=== PATIENT | female | born 1995 | race African-American/Black ===

== ENCOUNTER 2022-12-11 11:37 | Emergency (ER) | payer OTHER, SELFPAY ==
[2022-12-11] VITALS (7 sets, daily range): BP systolic 107–123; BP diastolic 62–84; PULSE 87–115; RESP 18; TEMP 36.4; O2SAT 98–100
--- NOTE | ~2022-12-11 | CT_ITS ---
EXAMINATION: CTA chest PE protocol DATE: 12/11/2022 13:54 MOBILE GAME ENGINEER INDICATION: Syncope. Elevated d-dimer. TECHNIQUE: Computed tomographic angiography (CTA) of the chest was performed with 100 mL Omnipaque-35 0 intravenous contrast. The dose-length product was 230.25 mGy-cm. Maximum intensity projection 3D-re constructions of the aorta and other arteries were constructed by the technologist on a separate work station. COMPARISON: None. FINDINGS: Study is technically adequate without evidence for pulmonary embolism. No significant pleur al or pericardial effusion. The upper abdomen is unremarkable. Heart size is normal. No thoracic lymp hadenopathy. No focal airspace consolidation. No endobronchial lesions. No pulmonary nodules. No pneu mothorax. No acute osseous abnormality. IMPRESSION: 1. No acute cardiopulmonary disease. No evidence for pulmonary embolism. Reviewed, dictated and finalized at location A. LE GAME ENGINEER
--- NOTE | 2022-12-11 12:08 | ECG_ITS ---
Measurements Intervals [place] Rate: 97 P: 72 MT: 171 QRS: 60 QRSD: 68 T: 52 QT: 316 QTc: 401 Interpretive Statements SINUS RHYTHM EARLY PRECORDIAL R/S TRANSITION BASELINE ARTIFACT- I, II, III, AVR, AVL BORDERLINE ECG NO PREVIOUS ECG AVAILABLE FOR COMPARISON Electronically Signed On 12-11-2022 13:22:31 THERMOFORMING MACHINE OPERATOR by Dayday Pritchett D.O.
--- NOTE | 2022-12-11 12:09 | ED.GENADULT ---
HPI - General Adult General Chief complaint: Syncope Stated complaint: near syncopal 3 months preg Time Seen by Provider: 12/11/22 11:42 History of Present Illness HPI narrative: 26-year-old female who is approximately 9 weeks presents to the emergency department for evaluation after having a syncopal episode. Patient states when she woke up this morning she was feeling fine. Patient states just prior to arrival she was making some waffles and sim and felt very flushed and had some onset of generalized weakness. Patient states she sat down at the table and rested her head on the table. Patient states that she felt warm and flushed. Patient was telling by members to open the door because she felt so warm. Patient states that EMS arrived quickly when EMS arrived that she did feel improved. Patient states that she has no chest pain or shortness of breath. Patient denies any nausea vomiting or diarrhea. Patient states she has been having some vaginal discharge but was started on an antifungal yesterday for yeast infection. Patient states that after the episode she did have some lower abdominal cramping. Patient does report a prior history of a cardiac murmur but denies any history of cardiac arrhythmia. Patient denies any other significant past medical history Related Data Allergies Allergy/AdvReac Type Severity Reaction Status Date / Time No Known Allergies Allergy Verified 12/11/22 11:45 Review of Systems Review of Systems: CONSTITUTIONAL: Denies fever, chills, or sweats. EYES: Denies visual changes, redness, or discharge. ENT: Denies rhinorrhea, congestion, sore throat, or otalgia. CARDIOVASCULAR: Denies chest pain, palpitations, or edema. RESPIRATORY: Denies cough or dyspnea. GASTROINTESTINAL: Denies abdominal pain, nausea, vomiting, or diarrhea. GENITOURINARY: Denies dysuria or hematuria. SKIN: Denies rash or itching. MUSCULOSKELETAL: Denies back pain, joint pain, or myalgia. NEUROLOGIC: See HPI Exam Narrative: APPEARANCE: Well appearing, no pain, no distress, well-nourished. HEAD: normocephalic, atraumatic. EYES: PERRLA/EOMI, conjunctivae clear. NOSE: Normal no drainage NECK: Supple. No adenopathy, no masses. RESPIRATORY: Airway patent, respirations nonlabored. Clear to auscultation bilaterally, no rales, rhonchi, wheezing. CARDIOVASCULAR: Regular rate and rhythm without murmurs rubs or gallops. ABDOMINAL: Soft, nontender, nondistended, normal bowel sounds. No suprapubic tenderness to palpation. MUSCULOSKELETAL: Moves all extremities. Strength/ROM intact, No edema, No calf tenderness. NEURO: Alert. Cranial nerves II through XII intact. Grossly intact SKIN: Warm, dry. Normal Color Course Course Emergency Course: Patient reports she has already had an outpatient ultrasound with her OB that she follows up with at [place]. Cardiac arrhythmia work-up including TSH mag EKG and baseline labs were ordered. Patient is being treated with 1 L normal saline. Dimer was ordered due to concern of pulm embolism as the underlying cause for her syncope. Patient's D-dimer was elevated. Risks and benefits of the CT scan were discussed with the patient. Patient was comfortable proceeding with the CT scan. Patient reports that her abdominal cramping did resolve with rehydration. Patient's orthostatic vital signs also improved with rehydration. Patient was negative for influenza COVID and RSV. Patient's UA was concerning for a urinary tract infection and patient was treated with IV Rocephin and discharged home with Keflex. Patient was updated on the results of the work-up and reports of close follow-up with her INSTRUCTOR KNITTING differential diagnosis for the patient's syncope did include but was not limited to orthostatic hypotension, dehydration, vasovagal syncope, cardiac arrhythmia, pulm embolism. Vital Signs Vital signs: Vital Signs Temperature 97.6 F 12/11/22 11:38 Pulse Rate 103 H 12/11/22 11:38 Respiratory Rate 18 12/11
[2022-12-11] MEDS: SODIUM CHLORIDE 0.9% IV 1,000 ML 999 ML IV CONT ×2 (12:16→15:24)
[2022-12-11 12:24] LABS: Basophils Percent Auto 0.4 % (0.2-1.2); Eosinophils Absolute Auto 0.2 K/mm3 (0-0.3); Eosinophils Percent Auto 2.9 % (0-4.4); Hematocrit 36.3 % (37.0-47.0); Hemoglobin 12.1 g/dL (12.0-15.0); Immature Granulocyte Absolute 0.01 K/mm3 (0.00-0.031); Immature Granulocyte Percent A 0.1 % (0-0.5); Lymphocytes Percent Auto 23.2 % (18.3-44.2); Mean Corpuscular HGB Conc 33.3 g/dl (32-36); Mean Corpuscular Hemoglobin 23.6 pg (26-34); Mean Corpuscular Volume 70.9 fl (80-100); Mean Platelet Volume 10.2 fl (7.4-10.4); Monocytes Absolute Auto 0.5 K/mm3 (0.1-0.6); Monocytes Percent Auto 6.3 % (2.6-8.5); Neutrophils Absolute Auto 5.5 K/mm3 (1.3-6.7); Neutrophils Percent Auto 67.1 % (45.5-73.1); Platelet Count Result 336 k/mm3 (150-375); Red Blood Count 5.12 M/mm3 (4.2-5.4); Red Cell Distribution Width 13.9 % (11.5-14.5); White Blood Count 8.2 K/mm3 (4.5-10.0)
[2022-12-11 12:38] LABS: Alanine Aminotransferase 14 U/L (6-35); Albumin Level 4.7 g/dL (3.5-5.1); Alkaline Phosphatase 50 U/L (38-126); Anion Gap 8 mmol/L (8-16); Aspartate Amino Transferase 23 U/L (14-36); Bilirubin,Total 1.2 mg/dL (0.2-1.3); Blood Urea Nitrogen 8 mg/dL (7-17); Calcium 9.7 mg/dL (8.4-10.2); Carbon Dioxide 28 mmol/L (22-30); Chloride 102 mmol/L (98-107); Estimated CRCL calculation 116 ml/min; Estimated Glomerular Filt Rate > 60; Glucose 84 mg/dL (65-110); Magnesium 2.1 mg/dL (1.6-2.3); Potassium 3.7 mmol/L (3.4-5.0); Sodium 138 mmol/L (137-145)
[2022-12-11 12:41] LABS: Platelet Estimate Adequate (Adequate)
[2022-12-11 12:42] LABS: Hypochromasia 1+ (NORMAL); Schistocytes None Seen (NORMAL); Target Cells 1+ (NORMAL)
[2022-12-11 12:50] LABS: INR 1.1; Prothrombin Time 13.6 Seconds (11.1-14.7)
[2022-12-11 12:51] LABS: Partial Thromboplastin Time 24.7 SECONDS (22.3-36.8)
[2022-12-11 13:02] LABS: Appearance Urine Cloudy (Clear); Bilirubin Urine Negative (Negative); Blood Urine Negative (Negative); Color Urine Yellow (Yellow); Glucose Urine UA Negative (Negative); Ketones Urine Trace mg/dL (Negative); Leukocyte Esterase Ur Negative LEU/UL (Negative); Nitrate Urine Negative (Negative); Protein Urine 1+ mg/dL (Negative); Specific Grav Ur >= 1.030 (1.001-1.035); pH Urine 5.5 (5.0-9.0)
[2022-12-11 13:05] LABS: Bacteria Urine 1+ /hpf; Mucus Urine Heavy /lpf; Squamous Epithelial Cell Urine Moderate /hpf (Few)
[2022-12-11 13:07] LABS: Add Urine Microscopic? YES
[2022-12-11 14:34] LABS: Influenza A QL RT-PCR Negative (Negative); Influenza B QL RT-PCR Negative (Negative); RSV RNA, RT-PCR Negative (Negative); SARS-CoV-2 RNA PCR Negative
== END 2022-12-11 17:25 | disposition home or self-care (01) ==
PROVIDERS: Emergency Provider Emergency Medicine
DX: O23.41 Unspecified infection of urinary tract in pregnancy, first trimester (principal); O99.411 Diseases of the circulatory system complicating pregnancy, first trimester; I95.1 Orthostatic hypotension; Z20.822 Contact with and (suspected) exposure to COVID-19; R94.31 Abnormal electrocardiogram [ECG] [EKG]; Z3A.09 9 weeks gestation of pregnancy
CPT/HCPCS: 36415; 71275; 80053; 81001; 83735; 85025; 85380; 85610; 85730; 87086; 87637; 93005; 96361; 96365; 99284; J0696; J7030; Q9967

== ENCOUNTER 2025-05-07 08:22 | Emergency (ER) | payer OTHER, SELFPAY ==
[2025-05-07] VITALS (9 sets, daily range): BP systolic 104–139; BP diastolic 64–93; PULSE 62–93; RESP 16–23; TEMP 36.7; O2SAT 100
--- NOTE | ~2025-05-07 | XR_ITS ---
EXAMINATION: XR chest 2V DATE: 05/07/2025 09:58 INDICATION: Central chest pain. Nausea. TECHNIQUE: frontal and lateral views of the chest were obtained. COMPARISON: Chest CT dated 11/2822 FINDINGS: The lungs are clear with no focal airspace opacities, pulmonary edema, pleural effusion or pneumothor ax. The cardiomediastinal silhouette is normal. Mild thoracolumbar dextrocurvature. IMPRESSION: 1. No acute cardiopulmonary disease. Reviewed, dictated and finalized at location A.
--- NOTE | 2025-05-07 08:37 | ECG_ITS ---
Test Date: 2025-05-07 08:42:21 Measurements Intervals [place] Rate: 72 P: 48 MO: 254 QRS: 74 QRSD: 76 T: 68 QT: 374 QTc: 412 Interpretive Statements SINUS RHYTHM WITH FIRST DEGREE AV BLOCK WITH OCCASIONAL SUPRAVENTRICULAR PREMATURE COMPLEXES BORDERLINE T WAVE ABNORMALITY- HIGH LATERAL LEADS BASELINE ARTIFACT- I, II, III, AVR, AVL, V2 BORDERLINE ECG No previous ECG available for comparison Electronically Signed On 05-07-2025 08:49:04 CDT by Dayday Pritchett D.O.
[2025-05-07 08:45] LABS: BEDSIDEPREGUCG Negative (Negative)
[2025-05-07] MEDS: ONDANSETRON INJ 4 MG/2 ML VIAL IV PUSH (08:55)
[2025-05-07] MEDS: SODIUM CHLORIDE 0.9% IV 1,000 ML 999 ML IV CONT (08:55)
[2025-05-07] MEDS: FAMOTIDINE 20 MG/2 ML VIAL IV PUSH (08:55)
[2025-05-07 09:01] LABS: Basophils Percent Auto 0.2 % (0.2-1.2); Eosinophils Percent Auto 0.1 % (0-4.4); Hematocrit 34.7 % (37.0-47.0); Hemoglobin 11.9 g/dL (12.0-15.0); Immature Granulocyte Absolute 0.05 K/mm3 (0.00-0.031); Immature Granulocyte Percent A 0.5 % (0-0.5); Lymphocytes Absolute Auto 1.96 K/mm3 (0.9-3.2); Mean Corpuscular HGB Conc 34.3 g/dl (32-36); Mean Corpuscular Hemoglobin 23.8 pg (26-34); Mean Corpuscular Volume 69.3 fl (80-100); Mean Platelet Volume 10.4 fl (7.4-10.4); Monocytes Absolute Auto 0.6 K/mm3 (0.1-0.6); Neutrophils Absolute Auto 8.3 K/mm3 (1.3-6.7); Neutrophils Percent Auto 76.2 % (45.5-73.1); Platelet Count Result 242 k/mm3 (150-375); Red Blood Count 5.01 M/mm3 (4.2-5.4); Red Cell Distribution Width 13.8 % (11.5-14.5); White Blood Count 10.9 K/mm3 (4.5-10.0)
[2025-05-07 09:11] LABS: Alanine Aminotransferase 20 U/L (6-35); Albumin Level 4.4 g/dL (3.5-5.1); Alkaline Phosphatase 55 U/L (38-126); Anion Gap 11 mmol/L (4-12); Aspartate Amino Transferase 26 U/L (14-36); Bilirubin,Total 2.7 mg/dL (0.2-1.3); Blood Urea Nitrogen 9 mg/dL (7-17); Calcium 9.6 mg/dL (8.4-10.2); Carbon Dioxide 23 mmol/L (22-30); Chloride 104 mmol/L (98-107); Estimated CRCL calculation 84 ml/min; Estimated Glomerular Filt Rate > 60; Glucose 95 mg/dL (65-110); Lipase 99 U/L (23-300); Potassium 3.1 mmol/L (3.4-5.0); Sodium 138 mmol/L (137-145); Total Protein 7.5 g/dL (6.3-8.2)
[2025-05-07 09:23] LABS: INR 1.1; Prothrombin Time 13.9 Seconds (11.1-14.7)
[2025-05-07 09:24] LABS: Partial Thromboplastin Time 22.6 Seconds (22.3-36.8)
[2025-05-07 09:25] LABS: Target Cells 1+
[2025-05-07 09:26] LABS: Hypochromasia 1+; Platelet Estimate Adequate (Adequate); Schistocytes None Seen
[2025-05-07 09:27] LABS: Atypical Lymphocytes Present
[2025-05-07] MEDS: BELLADONNA ALK/PHENOB ELIX 10 ML, MAG HYDROX/ALUMINUM HYD/SIMETH 30 ML, LIDOCAINE 2% VI... PO (11:17)
--- NOTE | 2025-05-07 11:41 | ED_ITS ---
HPI - Abdominal Pain General Chief Complaint: Abdominal Pain Stated Complaint: ovarian cyst pain Time Seen by Provider: 05/07/25 08:33 History of Present Illness HPI narrative: Patient is a 29-year-old female who presents ER with nausea vomiting abdominal pain. Pain is in her epigastrium. If she eats or drinks she vomits. Recently started on Toradol for abdominal pain. She has had chronic issues since 2019 and sees GI. She was seen at 2 separate hospitals over last week. She is diagnosed with an ulcer in his taking medication for H pylori. She has also had diagnosed with an ovarian cyst. She then developed a yeast infection from the antibiotic she had been on him receive some treatment for that as well. No recurrent fevers or chills. No urinary symptoms. Related Data Allergies Allergy/AdvReac Type Severity Reaction Status Date / Time No Known Allergies Allergy Verified 05/07/25 08:38 Review of Systems 2 Review of Systems: All systems reviewed & are unremarkable except as noted in HPI and below Constitutional: Constitutional: Reports no additional constitutional complaints ENT: Reports system reviewed and no additional complaints, except as documented Cardiovascular: Cardiovascular: Reports no additional cardiovascular complaints Respiratory: Respiratory: Reports no additional respiratory complaints PMFSH Past Medical History Medical History (Updated 05/07/25 @ 11:53 by Ashwin Berrios MD) Healthy female adult Exam 2 Narrative: GENERAL: Uncomfortable-appearing, well-nourished, and in no acute distress. HEAD: Normocephalic, atraumatic. ENT: Mucous membranes moist. NECK: Supple. CHEST: Clear to auscultation. No respiratory distress. HEART: Regular rate and rhythm. Normal peripheral pulses. ABDOMEN: Soft, nontender, nondistended. EXTREMITIES: Normal range of motion. No edema. SKIN: Warm, dry, no rash. NEURO: Alert and oriented x3. PSYCH: Normal mood and affect. Course Course Emergency Course: Patient has had vomiting. Suspect esophagitis and gastritis. She has had a lot of anti-inflammatories prescribed to her that I think care acting as a gastric irritants pain could potentially be causing an ulcer. I have instructed her to discontinue these medications. She will be started on Protonix 40 mg twice a day. Also provide with antiemetics for home. Vital Signs Vital signs: Vital Signs Temperature 98.0 F 05/07/25 08:24 Pulse Rate 65 05/07/25 08:24 Respiratory Rate 16 05/07/25 08:24 Blood Pressure 109/93 H 05/07/25 08:24 Pulse Oximetry 100 05/07/25 08:24 Oxygen Delivery Room Air 05/07/25 08:24 Temperature 98.0 F 05/07/25 08:24 Pulse Rate 72 05/07/25 10:30 Respiratory Rate 21 H 05/07/25 10:30 Blood Pressure 104/67 05/07/25 10:30 Pulse Oximetry 100 05/07/25 10:30 Oxygen Delivery Room Air 05/07/25 08:24 MDM - Abdominal Pain Lab Data 05/07/25 08:55 05/07/25 08:55 Labs: Lab Results 05/07/25 05/07/25 05/07/25 Range/Units 08:42 08:55 08:56 WBC 10.9 H (4.5-10.0) K/mm3 RBC 5.01 (4.2-5.4) M/mm3 Hgb 11.9 L (12.0-15.0) g/dL Hct 34.7 L (37.0-47.0) % MCV 69.3 L (80-100) fl MCH 23.8 L (26-34) pg MCHC 34.3 (32-36) g/dl RDW 13.8 (11.5-14.5) % Plt Count 242 (150-375) k/mm3 MPV 10.4 (7.4-10.4) fl Immature Gran % (Auto) 0.5 (0-0.5) % Neut % (Auto) 76.2 H (45.5-73.1) % Lymph % (Auto) 18.0 L (18.3-44.2) % [place] % (Auto) 5.0 (2.6-8.5) % Eos % (Auto) 0.1 (0-4.4) % Baso % (Auto) 0.2 (0.2-1.2) % Lymph # (Auto) 1.96 (0.9-3.2) K/mm3 [place] # (Auto) 0.6 (0.1-0.6) K/mm3 Eos # (Auto) 0.0 (0-0.3) K/mm3 Baso # (Auto) 0.0 (0.0-0.1) K/mm3 Abs Immat Gran (auto) 0.05 H (0.00-0.031) K/mm3 Absolute Neuts (auto) 8.3 H (1.3-6.7) K/mm3 Absolute Nucleated RBC 0.000 (0.0-0.012) K/mm3 Band Neutrophils % Not Reportable Nucleated RBC % 0.0 (0.0-0.2) % Atypical Lymphocytes Present Platelet Estimate Adequate (Adequate) Hypochromasia 1+ Target Cells 1+ Schistocytes None seen PT 13.9 (11.1-14.7) Seconds INR 1.1 APTT 22.6 (22.3-36.8) Seconds Sodium 138 (137-145) mmol/L Potassium 3.1 L (3.4-5.0) mmol/L Chloride 104 (98-107) mmol/L Carbon Dioxide 23 (22-30) mmol/L Anion Gap 11 (4-12) mmol/L BUN 9 (7-17) mg/dL Creatinine 0.70 (0.7-1.0) mg/dL Estim Creat Clear Calc 84 ml/min Estimated GFR > 60 (59 - ) Glucose 95 (65-110) mg/dL Calcium 9.6 (8.4-10.2) mg/dL Total Bilirubin 2.7 H (0.2-1.3) mg/dL AST 26 (14-36) U/L ALT 20 (6-35) U/L Alkaline Phosphatase 55 (38-126) U/L Total Protein 7.5 (6.3-8.2) g/dL Albumin 4.4 (3.5-5.1) g/dL Lipase 99 (23-300) U/L POC Urine HCG, Qual Negative (Negative) Imaging Data Radiologist's impression: ITS Impressions Chest X-Ray 05/07/25 09:59 IMPRESSION: 1. No acute cardiopulmonary disease. Discharge Plan Discharge Clinical Impression: Esophagitis with gastritis, Hypokalemia, Nausea & vomiting Patient Disposition: Home Condition: Stable Instructions: Diet for Stomach Ulcers and Gastritis (ED), Acute Nausea and Vomiting (ED), Esophagitis (ED) Additional Instructions: Return to the emergency department if you develop severe abdominal pain, severe nausea and vomiting to the point where you are unable to keep down fluids, if you develop chest pain or difficulty breathing, blood in your stool, dizziness or fainting, or if you develop any other new or concerning symptoms as these could be signs of more serious medical illness. Try to stay well hydrated. Follow-up with your primary care doctor as well as her GI doctor. Patient Language: Bulgarian Prescriptions: New pantoprazole 40 mg tablet,delayed release (DR/EC) 40 mg PO BID Qty: 28 0RF ondansetron 4 mg tablet,disintegrating 4 mg PO Q6H PRN (Reason: nausea and vomiting) Qty: 10 0RF potassium chloride [Klor-Con M20] 20 mEq tablet,ER particles/crystals 20 meq PO BID Qty: 10 0RF No Action cephalexin 500 mg capsule 500 mg PO Q12H 7 Days Qty: 14 0RF Follow-up/Referrals: PHYSICIAN NOT ON STAFF,NONSTAFF [Primary Care Provider] - 1 Week
== END 2025-05-07 12:08 | disposition home or self-care (01) ==
PROVIDERS: Emergency Provider Emergency Medicine
DX: K29.70 Gastritis, unspecified, without bleeding (principal); K20.90 Esophagitis, unspecified without bleeding; E87.6 Hypokalemia; R11.2 Nausea with vomiting, unspecified
CPT/HCPCS: 36415; 71046; 80053; 81025; 83690; 85025; 85610; 85730; 93005; 96361; 96374; 96375; 99284; A9270; J2405; J7030

== ENCOUNTER 2025-05-08 08:56 | Emergency (ER) | payer OTHER, SELFPAY ==
--- NOTE | ~2025-05-08 | CT_ITS ---
CT abdomen pelvis w con Ordering provider: Emy Summers PA-C History: 29 years Female with . epigastric abd pain/generalized abd pain radiates to midback . Comparison: None. Technique: CT abdomen and pelvis with IV and without oral contrast. Automated exposure control and it erative reconstruction technique were employed. The dose-length product was 190.39 mGy-cm. 100 mL Omn ipaque 350 was given IV. Findings: VISUALIZED LOWER CHEST: Normal. UPPER ABDOMINAL ORGANS: Liver: Normal. Gallbladder: Normal. Spleen: Normal. Stomach/duodenum: Normal. Pancreas: Slightly prominent distal body of the pancreas with no fat stranding. Evaluation for pancre atitis advised. Adrenals: Normal. Kidneys: Normal. PELVIC ORGANS: The bladder is underfilled. Uterus: Retroverted. Right ovarian cyst measuring 2.2 cm. Slightly congested and prominent veins seen around the uterus which may indicate pelvic congestion sy ndrome. BOWEL AND MESENTERY: Colon: No evidence of diverticulitis.. Normal appendix. Small Bowel: Normal. No obstruction. Peritoneum/mesentery: No free air or free fluid. No mesenteric lymphadenopathy. RETROPERITONEUM: Normal aorta. No retroperitoneal lymphadenopathy. MUSCULOSKELETAL: Superficial soft tissues: The superficial soft tissues are normal. Bones: Normal spine. IMPRESSION: 1. No evidence of appendicitis, diverticulitis or intestinal obstruction. 2. Focal enlargement in the distal body of the pancreas. Evaluation for pancreatitis advised. 3. Prominent veins in both sides of the pelvis which may indicate pelvic congestion syndrome. 4. Right ovarian cyst. Reviewed, dictated and finalized at location A. IMPRESSION: 1. No evidence of appendicitis, diverticulitis or intestinal obstruction. 2. Focal enlargement in the distal body of the pancreas. Evaluation for pancre atitis advised. 3. Prominent veins in both sides of the pelvis which may indicate pelvic conge stion syndrome. 4. Right ovarian cyst.
[2025-05-08 09:02] VITALS: BP 128/94; PULSE 66; RESP 14; TEMP 36.8; O2SAT 100
[2025-05-08 09:05] LABS: Basophils Percent Auto 0.3 % (0.2-1.2); Eosinophils Absolute Auto 0.1 K/mm3 (0-0.3); Eosinophils Percent Auto 0.8 % (0-4.4); Hemoglobin 10.8 g/dL (12.0-15.0); Immature Granulocyte Absolute 0.04 K/mm3 (0.00-0.031); Immature Granulocyte Percent A 0.4 % (0-0.5); Lymphocytes Absolute Auto 2.17 K/mm3 (0.9-3.2); Lymphocytes Percent Auto 22.5 % (18.3-44.2); Mean Corpuscular HGB Conc 33.8 g/dl (32-36); Mean Corpuscular Hemoglobin 23.8 pg (26-34); Mean Corpuscular Volume 70.6 fl (80-100); Mean Platelet Volume 10.3 fl (7.4-10.4); Monocytes Absolute Auto 0.7 K/mm3 (0.1-0.6); Monocytes Percent Auto 6.8 % (2.6-8.5); Neutrophils Absolute Auto 6.7 K/mm3 (1.3-6.7); Neutrophils Percent Auto 69.2 % (45.5-73.1); Platelet Count Result 199 k/mm3 (150-375); Red Blood Count 4.53 M/mm3 (4.2-5.4); Red Cell Distribution Width 13.7 % (11.5-14.5); White Blood Count 9.6 K/mm3 (4.5-10.0)
[2025-05-08 09:18] LABS: Alanine Aminotransferase 16 U/L (6-35); Albumin Level 3.8 g/dL (3.5-5.1); Alkaline Phosphatase 47 U/L (38-126); Anion Gap 8 mmol/L (4-12); Aspartate Amino Transferase 20 U/L (14-36); Blood Urea Nitrogen 8 mg/dL (7-17); Calcium 8.9 mg/dL (8.4-10.2); Carbon Dioxide 26 mmol/L (22-30); Chloride 103 mmol/L (98-107); Estimated CRCL calculation 84 ml/min; Estimated Glomerular Filt Rate > 60; Glucose 88 mg/dL (65-110); Lipase 43 U/L (23-300); Potassium 2.8 mmol/L (3.4-5.0); Sodium 137 mmol/L (137-145); Total Protein 6.5 g/dL (6.3-8.2)
[2025-05-08 09:24] LABS: Hypochromasia 2+; Platelet Estimate Adequate (Adequate)
[2025-05-08 09:25] LABS: Anisocytosis 1+; Schistocytes None Seen; Target Cells 2+
[2025-05-08 09:28] LABS: BEDSIDEPREGUCG Negative (Negative)
--- NOTE | 2025-05-08 09:30 | ED.ABDPAIN ---
HPI - Abdominal Pain General Chief Complaint: Abdominal Pain Stated Complaint: abd pain/back pain Time Seen by Provider: 05/08/25 09:07 History of Present Illness HPI narrative: This is a 29 year old female that presents to the ER for abdominal pain. Reports she coughed this morning and had a sharp epigastric pain, radiating to her back. Reports nausea and vomiting. She was seen for similar yesterday. Reports she was diagnosed with H. Pylori in January of this year. She did not fully finish her treatment. She started having discomfort again so decided to re-start her antibiotics. Related Data Allergies Allergy/AdvReac Type Severity Reaction Status Date / Time No Known Allergies Allergy Verified 05/08/25 08:57 Review of Systems Review of Systems: All systems reviewed & are unremarkable except as noted in HPI and below PMFSH Past Medical History Medical History (Updated 05/08/25 @ 13:57 by Emy Summers PA-C) Healthy female adult Social History Social History (Updated 05/08/25 @ 09:35 by Emy Summers PA-C) Smoking status: Never smoker Substance use: current Exam Narrative: GENERAL: Well-appearing, well-nourished, and in no acute distress. HEAD: Normocephalic, atraumatic. EYES: EOMI. CHEST: Clear to auscultation. No respiratory distress. No wheezes rales or rhonchi HEART: Regular rate and rhythm. No murmur heard. Normal peripheral pulses. ABDOMEN: Soft, nondistended, normal active bowel sounds. Tender to palpation in the epigastrium, without guarding EXTREMITIES: Normal range of motion. No edema. SKIN: Warm, dry, no rash. NEURO: No focal deficits. Alert and oriented x3. PSYCH: Normal mood and affect Course Course Emergency Course: Patient updated on her workup and agrees with plan of care Vital Signs Vital signs: Vital Signs Temperature 98.2 F 05/08/25 09:02 Pulse Rate 66 05/08/25 09:02 Respiratory Rate 14 05/08/25 09:02 Blood Pressure 128/94 H 05/08/25 09:02 Pulse Oximetry 100 05/08/25 09:02 Oxygen Delivery Room Air 05/08/25 09:02 Temperature 98.2 F 05/08/25 09:02 Pulse Rate 66 05/08/25 09:02 Respiratory Rate 14 05/08/25 09:02 Blood Pressure 128/94 H 05/08/25 09:02 Pulse Oximetry 100 05/08/25 09:02 Oxygen Delivery Room Air 05/08/25 09:02 MDM - Abdominal Pain MDM Narrative Medical decision making narrative: Patient presents the emergency department for epigastric abdominal discomfort, nausea and vomiting. She is afebrile and nontoxic appearing. Her vitals are stable. Cbc without leukocytosis. Shows microcytic anemia hemoglobin of 10.8. Metabolic panel with hypokalemia, this was replaced. Recheck is normal. Urine without evidence of infection. CT abdomen and pelvis shows focal enlargement of the pancreas, patient's lipase is normal. Pelvic congestion syndrome. Small right ovarian cyst. Patient was hydrated and given antiemetic, Protonix with relief. Tolerating PO challenge. Reports she has follow-up with her PCP next week. She was given warnings to return to the ER Differential Diagnosis Differential diagnosis: Likely abdominal pain, gastroenteritis and other (GERD, biliary colic, pancreatitis) Lab Data Attestation: I reviewed the patient's lab results. 05/08/25 09:00 05/08/25 13:33 Labs: Lab Results 05/08/25 05/08/25 05/08/25 Range/Units 09:00 09:23 09:25 WBC 9.6 (4.5-10.0) K/mm3 RBC 4.53 (4.2-5.4) M/mm3 Hgb 10.8 L (12.0-15.0) g/dL Hct 32.0 L (37.0-47.0) % MCV 70.6 L (80-100) fl MCH 23.8 L (26-34) pg MCHC 33.8 (32-36) g/dl RDW 13.7 (11.5-14.5) % Plt Count 199 (150-375) k/mm3 MPV 10.3 (7.4-10.4) fl Immature Gran % (Auto) 0.4 (0-0.5) % Neut % (Auto) 69.2 (45.5-73.1) % Lymph % (Auto) 22.5 (18.3-44.2) % [place] % (Auto) 6.8 (2.6-8.5) % Eos % (Auto) 0.8 (0-4.4) % Baso % (Auto) 0.3 (0.2-1.2) % Lymph # (Auto) 2.17 (0.9-3.2) K/mm3 [place] # (Auto) 0.7 H (0.1-0.6) K/mm3 Eos # (Auto) 0.1 (0-0.3) K/mm3 Baso # (Auto) 0.0 (0.0-0.1) K/mm3 Abs Immat Gran (auto) 0.04 H (0.00-0.031) K/mm3 Absolute Neuts (auto) 6.7 (1.3-6.7) K/mm3 Absolute Nucleated RBC 0.000 (0.0-0.012) K/mm3 Band Neutrophils % Not Reportable Nucleated RBC % 0.0 (0.0-0.2) % Platelet Estimate Adequate (Adequate) Hypochromasia 2+ Anisocytosis 1+ Target Cells 2+ Schistocytes None seen Sodium 137 (137-145) mmol/L Potassium 2.8 L* (3.4-5.0) mmol/L Chloride 103 (98-107) mmol/L Carbon Dioxide 26 (22-30) mmol/L Anion Gap 8 (4-12) mmol/L BUN 8 (7-17) mg/dL Creatinine 0.72 (0.7-1.0) mg/dL Estim Creat Clear Calc 84 ml/min Estimated GFR > 60 (59 - ) Glucose 88 (65-110) mg/dL Calcium 8.9 (8.4-10.2) mg/dL Magnesium 2.0 (1.6-2.3) mg/dL Total Bilirubin 2.0 H (0.2-1.3) mg/dL AST 20 (14-36) U/L ALT 16 (6-35) U/L Alkaline Phosphatase 47 (38-126) U/L Total Protein 6.5 (6.3-8.2) g/dL Albumin 3.8 (3.5-5.1) g/dL Lipase 43 (23-300) U/L Urine Color Yellow (Yellow) Urine Appearance Clear (Clear) Urine pH 6.5 (5.0-9.0) Ur Specific [place] 1.016 (1.001-1.035) Urine Protein Negative (Negative) mg/dL Urine Glucose (UA) Negative (Negative) mg/dL Urine Ketones 1+ H (Negative) mg/dL Ur Blood (Man) Negative (Negative) Urine Nitrate Negative (Negative) Urine Bilirubin Negative (Negative) Urine Urobilinogen 1.0 (<2.0) mg/dL Leukocyte Esterase Rfl Negative (Negative) SERGEY/UL POC Urine HCG, Qual Negative (Negative) 05/08/25 Range/Units 13:33 WBC (4.5-10.0) K/mm3 RBC (4.2-5.4) M/mm3 Hgb (12.0-15.0) g/dL Hct (37.0-47.0) % MCV (80-100) fl MCH (26-34) pg MCHC (32-36) g/dl RDW (11.5-14.5) % Plt Count (150-375) k/mm3 MPV (7.4-10.4) fl Immature Gran % (Auto) (0-0.5) % Neut % (Auto) (45.5-73.1) % Lymph % (Auto) (18.3-44.2) % [place] % (Auto) (2.6-8.5) % Eos % (Auto) (0-4.4) % Baso % (Auto) (0.2-1.2) % Lymph # (Auto) (0.9-3.2) K/mm3 [place] # (Auto) (0.1-0.6) K/mm3 Eos # (Auto) (0-0.3) K/mm3 Baso # (Auto) (0.0-0.1) K/mm3 Abs Immat Gran (auto) (0.00-0.031) K/mm3 Absolute Neuts (auto) (1.3-6.7) K/mm3 Absolute Nucleated RBC (0.0-0.012) K/mm3 Band Neutrophils % Nucleated RBC % (0.0-0.2) % Platelet Estimate (Adequate) Hypochromasia Anisocytosis Target Cells Schistocytes Sodium (137-145) mmol/L Potassium 3.5 (3.4-5.0) mmol/L Chloride (98-107) mmol/L Carbon Dioxide (22-30) mmol/L Anion Gap (4-12) mmol/L BUN (7-17) mg/dL Creatinine (0.7-1.0) mg/dL Estim Creat Clear Calc ml/min Estimated GFR (59 - ) Glucose (65-110) mg/dL Calcium (8.4-10.2) mg/dL Magnesium (1.6-2.3) mg/dL Total Bilirubin (0.2-1.3) mg/dL AST (14-36) U/L ALT (6-35) U/L Alkaline Phosphatase (38-126) U/L Total Protein (6.3-8.2) g/dL Albumin (3.5-5.1) g/dL Lipase (23-300) U/L Urine Color (Yellow) Urine Appearance (Clear) Urine pH (5.0-9.0) Ur Specific [place] (1.001-1.035) Urine Protein (Negative) mg/dL Urine Glucose (UA) (Negative) mg/dL Urine Ketones (Negative) mg/dL Ur Blood (Man) (Negative) Urine Nitrate (Negative) Urine Bilirubin (Negative) Urine Urobilinogen (<2.0) mg/dL Leukocyte Esterase Rfl (Negative) SERGEY/UL POC Urine HCG, Qual (Negative) Imaging Data Radiologist's impression: ITS Impressions Abdomen/Pelvis CT 05/08/25 09:54 IMPRESSION: 1. No evidence of appendicitis, diverticulitis or intestinal obstruction. 2. Focal enlargement in the distal body of the pancreas. Evaluation for pancreatitis advised. 3. Prominent veins in both sides of the pelvis which may indicate pelvic congestion syndrome. 4. Right ovarian cyst. Critical Care Time Critical Care Time Critical Care Time: No Discharge Plan Discharge Clinical Impression: Hypokalemia, Epigastric pain Anemia Qualifiers: Anemia type: unspecified type Qualified Code(s): D64.9 - Anemia, unspecified Patient Disposition: Home Condition: Improved Instructions: Antibiotic Form, Hypokalemia (ED), Anemia (ED), Epigastric Pain (ED) Additional Instructions: Return to the ER if you experience fever, abdominal pain with nausea and vomiting, you are unable to keep down liquids or solids, or any other symptoms that are concerning to you Remain well hydrated. Take pantoprazole as prescribed. Ondansetron as needed for nausea Follow up with your primary care doctor and gastroenterology Patient Language: Urdu Prescriptions: No Action cephalexin 500 mg capsule 500 mg PO Q12H 7 Days Qty: 14 0RF pantoprazole 40 mg tablet,delayed release (DR/EC) 40 mg PO BID Qty: 28 0RF ondansetron 4 mg tablet,disintegrating 4 mg PO Q6H PRN (Reason: nausea and vomiting) Qty: 10 0RF potassium chloride [Klor-Con M20] 20 mEq tablet,ER particles/crystals 20 meq PO BID Qty: 10 0RF Follow-up/Referrals: PHYSICIAN NOT ON STAFF,NONSTAFF [Primary Care Provider] - Tirno Pollock MD [Physician] -
[2025-05-08 09:38] LABS: Add Urine Microscopic? NO; Appearance Urine Clear (Clear); Bilirubin Urine Negative (Negative); Blood Urine Negative (Negative); Color Urine Yellow (Yellow); Glucose Urine UA Negative (Negative); Ketones Urine 1+ mg/dL (Negative); Leukocyte Esterase Ur Negative LEU/UL (Negative); Nitrate Urine Negative (Negative); Protein Urine Negative (Negative); Specific Grav Ur 1.016 (1.001-1.035); pH Urine 6.5 (5.0-9.0)
[2025-05-08] MEDS: POTASSIUM CHLORIDE INJ 40 MEQ in SODIUM CHLORIDE 0.9% IV 500 ML 130 MEQ IVPB (09:56)
[2025-05-08] MEDS: PANTOPRAZOLE SODIUM IV 40 MG VIAL IV PUSH (09:58)
[2025-05-08] MEDS: POTASSIUM CHLORIDE 20 MEQ PACKET (FOR LIQUID) 40 MEQ PO (11:37)
[2025-05-08 13:44] LABS: Potassium 3.5 mmol/L (3.4-5.0)
[2025-05-08 14:10] VITALS: BP 112/74; PULSE 72; RESP 16; O2SAT 99
== END 2025-05-08 14:14 | disposition home or self-care (01) ==
PROVIDERS: Emergency Medicine; Emergency Provider Physician Assistant
DX: R10.13 Epigastric pain (principal); E87.6 Hypokalemia; D64.9 Anemia, unspecified
CPT/HCPCS: 36415; 74177; 80053; 81003; 81025; 83690; 83735; 84132; 85025; 96365; 96366; 96375; 99284; A9270; J2470; J7040; Q9967

== ENCOUNTER 2025-06-29 09:56 | Observation (INO) | payer OTHER, SELFPAY ==
--- NOTE | ~2025-06-29 | CT_ITS ---
EXAMINATION: CT abdomen pelvis w con DATE: 06/29/2025 12:17 INDICATION: Pancreatitis TECHNIQUE: Computed tomography (CT) of the abdomen and pelvis was performed with 100 mL Omnipaque-350 intravenous contrast. Automated exposure control and iterative reconstruction technique were employe d. The dose-length product was 200.71 mGy-cm. COMPARISON: 05/08/2025 FINDINGS: Lung bases are clear. Heart size is normal. No pericardial or pleural effusion. Cholecystectomy clips the gallbladder fossa. Liver, spleen, pancreas, bilateral adrenal glands and kidneys are normal. [place] els including the appendix are normal. 3.5 cm right adnexal cyst. Decompressed bladder, retroverted u terus and left adnexa are unremarkable. No free intraperitoneal gas or fluid. No pathologically enlar ged abdominal or pelvic lymphadenopathy. Bones are unremarkable. IMPRESSION: 1. 3.5 similar right adnexal cyst. No acute intra-abdominal/pelvic process. Reviewed, dictated and finalized at location A.
--- OUTSIDE RECORDS SUMMARY | 2025-06-29 09:58 | XMS_ITS | Encounter Summary ---
Author Organization [facility] Healthcare Address [address] [place] [address] Care Team Providers Care Intake Manager Name Role Phone Brenda Leach NP Primary Care Provider [phone] Ankur Torres MD Unavailable [phone] Reason for Visit * Auth/Cert (Routine) Specialty Diagnoses / Procedures Referred By Jelani sarah Referred To Contact Diagnoses Abdominal pain Nausea and vomiting, unspecified vomiting type Anemia, unspecified type Abdominal pain [R10.9] Nausea and vomiting, unspecified vomiting type [R11.2] Anemia, unspecified type [D64.9] Procedures FL ESOPHAGOGASTRODUODENOSCOPY TRANSORAL DIAGNOSTIC FL COLONOSCOPY,DIAGNOSTIC ESOPHAGOGASTRODUODENOSCOPY COLONOSCOPY Referral ID Status Reason Start Date Expiration Date Visits Re quested Visits Authorized [id number] 1 1 Encounter Details Date Type Department Care Team (Late st Contact Info) Description 07/26/2024 2:00 PM CDT Hospital Encounter [facility] [address] [place] [address] Georgi Knight MD [address] [place] [address] [phone] Social History Tobacco Use Types Packs/Day Years Used Date Smoking Tobacco: Never Smokeless Tobacco: Never Alcohol Use Standard Drinks/Week Comments Not Currently 0 (1 standard drink = 0.6 oz pur e alcohol) [facility] Utilities Answer Date Recorded In the past 12 months has e [employer], [employer], oil, or water [employer] threatened to shut off services in your home? No 01/24/2025 Humiliation, Afraid, Rape, and Kick questionnair e Answer Date Recorded Within the last year, have y ou been afraid of your partner or ex-partner? No 03/21/2024 Within the last year, have y ou been humiliated or emotionally abused in other ways by your partner or ex-partner? No Within the last year, have y ou been kicked, hit, slapped, or otherwise physically hurt by your partner or ex-partner? No 03/21/2024 Within the last year, have y ou been raped or forced to have any kind of sexual activity by your partner or ex-partner? No 03/21/2024 Social Connection and Isolation Panel Answer Date Recorded In a typical week, how many times do you talk on the phone with family, friends, or neighbors? Three times a week 01/24/2025 How often do you get togethe r with friends or relatives? Three times a week 01/24/2025 How often do you attend chur ch or caodaism services? Never 01/24/2025 Do you belong to any clubs o r organizations such as baptist groups, unions, fraternal or athletic groups, or school groups? No 01/24/2025 How often do you attend meet ings of the clubs or organizations you belong to? Never 01/24/2025 Are you , , di vorced, , never , or living with a partner? Never 01/24/2025 AUDIT-C Answer Date Recorded Q1: How often do you have a drink containing alcohol? Never 10/15/2024 Q2: How many drinks containi ng alcohol do you have on a typical day when you are drinking? Patient does not drink Q3: How often do you have si x or more drinks on one occasion? Never 10/15/2024 Overall Financial Resource Strain (CARDIA) Answe r Date Recorded How hard is it for you to pa y for the very basics like food, housing, medical care, and heating? Not hard at all 01/24/2025 [facility] [place] of Occupat ional Health - Occupational Stress Questionnaire Answer Date Recorded Do you feel stress - tense, restless, nervous, or anxious, or unable to sleep at night because your mind is troubled all the time - these days? Rather much 03/24/2023 Exercise Vital Sign Answer Date Recorde d On average, how many days pe r week do you engage in moderate to strenuous exercise (like a brisk walk)? 5 days Minutes of Exercise per Session Not on file 03/24/2023 Hunger Vital Sign Answer Date Recorded Within the past 12 months, y ou worried that your food would run out before you got the money to buy more. Never true 01/25/20 25 Within the past 12 months, t he food you bought just didn't last and you didn't have money to get more. Never true 01/24/2025 PRAPARE - Transportation Answer Date Re corded In the past 12 months, has l ack of transportation kept you from medical appointments or from getting medications? No 01/12 In the past 12 months, has l ack of transportation kept you from meetings, work, or from getting things needed for daily living? No 01/24/2025 Housing Stability Vital Sign Answer Jayjay e Recorded In the last 12 months, was t here a time when you were not able to pay the mortgage or rent on time? No 03/21/2024 In the last 12 months, how many places have you lived? 1 03/21/2024 In the last 12 months, was t here a time when you did not have a steady place to sleep or slept in a long term (including now)? No 03/21/2024 [place] Depression Scale Answer Date Recorded [place] Depression Scale Total 10 08/08/2023 The thought of harming myself has occurred to me . Never 08/08/2023 Housing Stability Vital Sign Answer Jayjay e Recorded In the last 12 months, was t here a time when you were not able to pay the mortgage or rent on time? No 01/24/2025 In the past 12 months, how m any times have you moved where you were living? 0 01/24/2025 At any time in the past 12 m [facility], were you homeless or living in a long term (including now)? No 01/24/2025 Personal Safety Answer Date Recorded Have you ever been in or are you currently in a harmful physical or emotional relationship or is someone making you feel afraid or unsafe? Denies 05/06/2025 Comments No Sex and Gender Information Value Date Recorded Sex Assigned at Not on file Legal Sex Female 1:12 PM CDT Gender Identity Female 03/14/2024 5:21 PM CDT Sexual Orientation Not on file documented as of this encounter Functional Status * AUDIT-C Score Answer Date of Assessment Author 0 10/15/2024 4:02 PM Phuong Don RN * Question Answer Date of Assessment Author Q1: How often do you have a drink containing alcohol? Never 10/15/2024 4:02 PM Phuong Don RN Q2: How many drinks containing alcohol do you have on a typical day when you are drinking? Patient does not drink 10/15/2024 4:02 PM Phuong Don RN Q3: How often do you have six or more drinks on one occasion? Never 10/15/2024 4:02 PM Phuong Don RN documented as of this encounter Miscellaneous Notes * Pre-Procedure Instructions - Margo Long RN - 07/19/2024 1:58 PM CDT Nothing to eat or drink after Midnight No alcohol or smoking 12 hours before surgery Adirondack teeth but do not swallow Shower or bathe, do not apply powders or lotions Expect to remove wigs, dentures, partials, contact lenses, body piercings and prosthesis Leave all jewelry and valuables at home Bring your glasses and hearing aide/s Make plans for responsible adult to drive you home or accompany you home Bring living will and/or power of attorney at law paperwork if you have one Follow GI physician instructions regarding blood thinner and vitamins Bring inhalers Take prep according to GI physician Please take the following medications with a small sip of water the AM of procedure: none. 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 documented in this encounter Plan of Treatment Not on file documented as of this encounter Visit Diagnoses Not on filedocumented in this encounter Admitting Diagnoses Diagnosis Abdominal pain Abdominal pain, unspecified site Nausea and vomiting Nausea with vomiting Anemia Unspecified anemia documented in this encounter Additional Health Concerns Infection Onset Date Last Indicated Resolved Time COVID: Suspected 01/23/2025 01/23/2025 01/23/2025 9:04 PM CDT Norovirus suspected 01/24/2025 01/24/2025 01/26/20 3:05 AM CDT documented as of this encounter Care Teams Intake Manager Relationship Specialty Start Date End Date Brenda Leach NP PCP - General Nurse Practitioner 07/29/22 01/01/25 Ankur Torres MD [address] [place] [id number] Consulting Physician General Surgery 12/23/23 documented as of this encounter
--- OUTSIDE RECORDS SUMMARY | 2025-06-29 09:58 | XMS_ITS | Encounter Summary ---
Author Organization [facility] Address [address] [place] [address] Care Team Providers Care Credit Review Analyst Name Role Phone Zoë Nino MD Primary Care Provider Radha Aguilera Primary Care Provider Encounter Details Date Type Department Care Team (Late st Contact Info) Description 09/12/2019 Lab Requisition [facility] Care Pathology Lab [address] [place] [address] Jennifer Darby MD [address] [address] Illness, unspecified Social History Tobacco Use Types Packs/Day Years Used Date Smoking Tobacco: Never Smokeless Tobacco: Never Alcohol Use Standard Drinks/Week Comments Not Currently 0 (1 standard drink = 0.6 oz pur e alcohol) Comments No Sex and Gender Information Value Date Recorded Sex Assigned at Not on file Legal Sex Female 11:23 PM CDT Gender Identity Not on file Sexual Orientation Not on file documented as of this encounter Functional Status * Is person deaf or have serious hearing difficulty? Answer Date of Assessment Author No 09/10/2019 7:43 PM Anca Plaza RN * Is person blind or have serious difficulty seeing? Answer Date of Assessment Author No 09/10/2019 7:43 PM CDT Anca Jim RN * Does person have serious difficulty walking/climbing stairs? Answer Date of Assessment Author No 09/10/2019 7:43 PM Anca Plaza RN * Does person have difficulty dressing/bathing? Answer Date of Assessment Author No 09/10/2019 7:43 PM CDT Anca Jim RN * Does person have difficulty doing errands alone? Answer Date of Assessment Author No 09/10/2019 7:43 PM CDT Anca Jim RN documented as of this encounter Mental Status * Does person have difficulty concentrating/remembering/making decisions? Answer Entry Date Author No 09/10/2019 7:43 PM CDT Anca Jim RN documented in this encounter Plan of Treatment Not on file documented as of this encounter Procedures Procedure Name Priority Date/Time Associated Diagnosis Comments PATHOLOGY TISSUE Routine 09/11/2019 10:0 0 AM CDT Illness, unspecified documented in this encounter Results * PATHOLOGY TISSUE (09/11/2019 10:00 AM CDT) Case Report Surgical Pathology Report Case: [id number] Authorizing Provider: Jennifer Darby MD Collected: 09/11/2019 10:00 AM Ordering Location: [facility] Pathology Lab Received: 09/12/2019 10:25 AM Pathologist: Dana Walton MD Specimen: Placenta 3rd Trimester 09/21/2019 12:58 PM 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 - Hypercoiled trivascular umbilical cord with segmented pattern. - Findings suggestive of meconium effect. - Decidual arteriopathy (acute atherosis), see Comment. COMMENT: The findings in this case are strongly suggestive of placental malperfusion, also known as maternal vascular malperfusion (MVM). Placental malperfusion often has a significant impact on well-being and may result in growth restriction or demise. This condition is most commonly seen in disorders affecting the maternal vasculature such as preeclampsia, chronic hypertension, diabetes mellitus, and select thrombophilias. Such disorders sometimes manifest microscopically as decidual arteriopathy, a finding that is particularly prominent in this case. Severe maternal malperfusion has an estimated risk of recurrence between 10-25 percent. 09/21/2019 12:58 PM [facility] PATH[facility] at [address] ROTOR CASTING MACHINE SETUP OPERATOR Clinical History The patient is a 23-year-old woman, , with a quintero complicated by growth restriction, oligohydramnios, and a decelerating heart rate detected at 36 weeks and 5 days of gestation. Following induction of labor, she delivered a baby girl weighing 1870 grams at with scores of 8 at 1 minute and 9 at 5 minutes. 09/21/2019 12:58 PM [facility] Gross Description Received in formalin in one container for gross and microscopic examination labeled with the patient s name, Chang Barroso and stefan duran is a quintero discoid placenta with attached portions of membranes and umbilical cord. The placental disc is 13.5 x 13.4 cm with a thickness ranging from 2.1 to 2.4 cm. The umbilical cord is 17 cm long with a diameter of 1.1 cm and has a central insertion 5.7 cm from the disc margin. The cord is dusky, yellow-hutson, and hypercoiled, with 3-4 coils per 10 cm arranged in a segmented pattern with leftward torsion. On cut surface, the cord is trivascular with no gross evidence of hemorrhage or thrombosis. The membranes are torn, with the longest length 4.1 cm and the shortest length 2.3 cm. The membranes are brown, opaque, and insert marginally. The surface is smooth, glistening, and hutson, with a 9.5 x 3.2 cm area of hemorrhage adjacent to the umbilical cord. The maternal surface displays loosely adherent coagula and intact cotyledons. A 3.4 x 3.2 cm hematoma is present peripherally. After trimming, the disc weighs 262 grams. The disc is serially sectioned, and on cut surface, the parenchyma is spongy and dark-red. No discrete lesions are grossly identified. Ug Designer sections are submitted as follows: A1. Proximal umbilical cord and membranes A2. Distal umbilical cord and membranes A3-A6. Placenta DS/SES/met 09/21/2019 12:58 PM [facility] AP Comment 6 H&E. Sections of the placental disc, membranes, and umbilical cord confirm a trivascular cord with no involvement by acute inflammation or thrombosis. The membranes are likewise without involvement by acute inflammation; however, there is mild vacuolization and disarray of the amniotic epithelium and edema of the chorionic and amniotic stroma. The chorionic villi are predominantly small and mature. No chronic villitis or deciduitis is appreciated. Within the decidua are occasional vessels that display mural fibrinoid necrosis associated with scattered foamy macrophages. (SES) 09/21/2019 12:58 PM [facility] Disclaimer The performance characteristics of all immunohistochemical and indirect immunofluorescence stains (if any) cited in this report were determined by the Histopathology Laboratory of [facility]. Some of these tests were developed by our own laboratory and have not been cleared or approved by the US Food and Drug Administration. The FDA does not require this test to go through premarket FDA review. These tests are used for clinical purposes. They should not be regarded as investigational or for research. This laboratory is certified under the Clinical Laboratory Improvement Amendments (CLIA) as qualified to perform high complexity clinical laboratory testing. This case has been personally reviewed and interpreted by the attending (teaching) pathologist. The diagnosis has been rendered by member(s) of the [facility] Department of Pathology, Division of Pediatric and Pathology located at [facility] ([address] [place] [address]). 09/21/2019 12:58 PM [facility] Embedded Images 09/21/2019 12:58 PM [facility] Pathology/Cytolo gy ENTIRE PLACENTA / Unknown 09/11/2019 10:00 AM CDT 09/12/2019 10:25 AM CDT us Jennifer Darby MD LAB - PATHOLOGY/CYTOLOGY OR DERABLES Final Result [facility] PATHOLOG[facility] LAB [address] [facility]. [place], [place] [id number] [place] [address] documented in this encounter Visit Diagnoses Diagnosis Illness, unspecified documented in this encounter Care Teams Credit Review Analyst Relationship Specialty Start Date End Date Zoë Nino MD [address] [place] [phone] PCP - General Obstetrics and Gynecology 08/30/1903/14 Radha Aguilera [address] [place] [phone] PCP - General 03/30/25 documented as of this encounter
--- OUTSIDE RECORDS SUMMARY | 2025-06-29 09:58 | XMS_ITS | Clinical Summary ---
Author Organization [facility] [employer] Address [address] [place] [address] Care Team Providers Care Perlite Grinder Name Role Phone Radha Aguilera Primary Care Provider [phone] Source Comments [facility] [employer],non-owned Affiliates and Associated Physician Practices is amultiple site organization consisting of ambulatory clinics and hospital sitesin [place], [place], [place] and [place]. This disclosure is being madepursuant to the Care Everywhere program and may not contain all information available regarding this patient. Last updated 18.[facility] [employer] Allergies No known active allergies Medications * This document contains information received from the source organization and may not represent a complete record from that organization. * Be aware that medications may not be up to date on this document. Alwaysverify current medications with the patient. ibuprofen (MOTRIN) 600 MG tablet Take 1 tablet by mouth every 6 hours as needed for Pain 60 tablet 9 Active docusate sodium (COLACE) 100 MG capsule Take 1 capsule by mouth 2 times daily as needed for Constipation 60 capsule 2 9 Active Vit-Fe Fumarate-FA ( VITAMIN) 28-0.8 MG tablet Take 1 tablet by mouth once daily 30 tablet 11 9 Active ferrous sulfate 325 (65 FE) MG tabletIndicatio ns:Iron Deficiency Anemia Take 1 tablet by mouth daily with breakfast Reasons: Anemia From Inadequate Iron in the Body 30 tablet 2 9 Active Active Problems Problem Noted Date Diagnosed Date heart rate deceleratio ns affecting management of mother 09/11/2019 Supervision of normal first , antepartu m 08/30/2019 affected by growth restriction 1 Sickle cell trait 08/30/2019 Adjustment disorder 02/10/2017 Oligohydramnios, antepartum Encounter for ultrasound Encounters Date Type Department Care Team Description 03/30/2025 10:29 AM CDT - 03/30/2025 11:25 AM CDT Emergency [facility] EMERGENCY DEPARTMENT [address] [place] [phone] Epigastric pain (Primary Dx) Discharge Disposition: Left Against Medical Advice/Discontinued Care 03/30/2025 Travel from Last 3 Months Immunizations Immunization Administration Dates Next Due MMR 09/12/2019(Deferred: Patient Con dition - Immune to Rubella) TDAP (7yrs+) 09/12/2019(Deferred: Patient Condition - Patient states that she recived vaccination during ) Social History Tobacco Use Types Packs/Day Years Used Date Smoking Tobacco: Never Smokeless Tobacco: Never Alcohol Use Standard Drinks/Week Comments Not Currently 0 (1 standard drink = 0.6 oz pur e alcohol) Comments No Sex and Gender Information Value Date Recorded Sex Assigned at Not on file Legal Sex Female 11:23 PM CDT Gender Identity Not on file Sexual Orientation Not on file Last Filed Vital Signs Vital Sign Reading Time Taken Comments Blood Pressure 128/82 03/30/2025 8:40 AM CDT Pulse 74 03/30/2025 8:40 AM CDT Temperature 36.6 C (97.9 F) 03/30/2025 8:40 AM CDT Respiratory Rate 14 03/30/2025 8:40 AM CDT Oxygen Saturation 97% 03/30/2025 8:40 AM CDT Inhaled Oxygen Concentration - - Weight 53.5 kg (118 lb) 03/30/2025 8:40 AM CDT Height 162.6 cm (5' 4) 03/30/2025 8:40 AM CDT Body Mass Index 20.25 03/30/2025 8:40 AM CDT Plan of Treatment Health Maintenance Due Date Last Done Comments HIV SCREENING 2012 HEPATITIS C SCREENING 12/26/2015 DTAP/TDAP/TD VACCINES (1 - Tdap) 2016 HEPATITIS B VACCINE (1 of 3 - 19+ 3-dose series) 2016 PAP SMEAR 2018 COVID-19 VACCINE (2 - 2023-2 5 season) 2024 09/30/2021 DEPRESSION SCREENING 11/14/2024 HPV VACCINE (1 - 3-dose SCDM series) 2024 INFLUENZA VACCINE (#1) 2025 ZOSTER VACCINE (1 of 2) 2047 HIB VACCINE Aged Out No longer eligi ble based on patient's age to complete this topic MENINGOCOCCAL (Group B) VACC INE SHARED DECISION-MAKING Aged Out No longer eligibl e based on patient's age to complete this topic MENINGOCOCCAL GROUPS A/C/Y/W VACCINE Aged Out No longer eligible b ased on patient's age to complete this topic PNEUMOCOCCAL VACCINE Aged Out No long er eligible based on patient's age to complete this topic Procedures Procedure Name Priority Date/Time Associated Diagnosis Comments HCG BETA BLOOD QUANTITATIVE STAT 03/30/2025 9:44 AM CDT LIPASE BLOOD STAT 03/30/2025 9:44 AM CDT COMPREHENSIVE METABOLIC PANEL STAT 03/30/2025 9:44 AM CDT CBC W AUTO DIFFERENTIAL STAT 03/30/2025 9:44 AM CDT from Last 3 Months Results * (ABNORMAL) CBC W AUTO DIFFERENTIAL (03/30/2025 9:44 AM CDT) WBC 9.8 4.0 - 10.7 x10E9/L 03/30/2025 10:21 AM [facility] RBC Count 5.45(H) 3.90 - 5.20 x10E12/L 03/30/2025 10:21 AM [facility] Hemoglobin 13.0 11.9 - 15.8 g/dL 03/30/2025 10:21 AM [facility] Hematocrit 37.3 34.8 - 46.1 % 03/30/2025 10:21 AM [facility] MCV 68.4(L) 80.0 - 98.0 fL 03/30/2025 10:21 AM [facility] MCH 23.9(L) 26.7 - 33.6 pg 03/30/2025 10:21 AM [facility] MCHC 34.9 31.7 - 36.3 g/dL 03/30/2025 10:21 AM [facility] RDW-CV 13.4 11.3 - 14.8 % 03/30/2025 10:21 AM [facility] Platelet Count 242 150 - 420 x10E9/L 03/30/2025 10:21 AM [facility] MPV 10.4 7.8 - 11.4 fL 03/30/2025 10:21 AM [facility] Neutrophil % 78.0(H) 41.0 - 74.0 % 03/30/2025 10:21 AM [facility] Lymphocyte % 16.6(L) 17.0 - 47.0 % 03/30/2025 10:21 AM [facility] Monocyte % 4.8 3.0 - 11.0 % 03/30/2025 10:21 AM [facility] Eosinophil % 0.0 0.0 - 7.0 % 03/30/2025 10:21 AM [facility] Basophil % 0.2 0.0 - 1.6 % 03/30/2025 10:21 AM [facility] Immature Granulocytes % 0.4 0.0 - 1.0 % 03/30/2025 10:21 AM [facility] Neutrophil Absolute 7.65(H) 1.60 - 7.50 x10E9/L 03/30/2025 10:21 AM [facility] Lymphocyte Absolute 1.63 1.00 - 4.40 x10E9/L 03/30/2025 10:21 AM [facility] Monocyte Absolute 0.47 0.15 - 1.00 x10E9/L 03/30/2025 10:21 AM [facility] Eosinophil Absolute 0.00 0.00 - 0.60 x10E9/L 03/30/2025 10:21 AM [facility] Basophil Absolute 0.02 0.00 - 0.13 x10E9/L 03/30/2025 10:21 AM [facility] Blood BLOOD SPECIMEN / Unknown Venipuncture / Unknown 03/30/2025 9:44 AM CDT 03/30/2025 9:56 AM T us Blair Raymond MD LAB - HEMATOLOGY ORDERABLES F inal Result [facility] [address] [place] [phone], [facility] [phone] * (ABNORMAL) COMPREHENSIVE METABOLIC PANEL (03/30/2025 9:44 AM CDT) BUN 12 7 - 26 mg/dL 03/30/2025 10:30 AM [facility] Creatinine 0.64 0.56 - 0.96 mg/dL 03/30/2025 10:30 AM [facility] Sodium 140 136 - 145 mmol/L 03/30/2025 10:30 AM [facility] Potassium 3.7 3.5 - 4.5 mmol/L 03/30/2025 10:30 AM [facility] Chloride 107 98 - 107 mmol/L 03/30/2025 10:30 AM [facility] CO2 22 22 - 29 mmol/L 03/30/2025 10:30 AM [facility] Glucose 97 70 - 99 mg/dL 03/30/2025 10:30 AM [facility] Calcium 9.6 8.4 - 10.2 mg/dL 03/30/2025 10:30 AM [facility] Protein Total 7.9 6.0 - 8.3 g/dL 03/30/2025 10:30 AM [facility] Albumin 4.6 3.4 - 5.0 g/dL 03/30/2025 10:30 AM [facility] Bilirubin Total 2.1(H) 0.2 - 1.2 mg/dL 03/30/2025 10:30 AM [facility] Alkaline Phosphatase 57 40 - 150 U/L 03/30/2025 10:30 AM [facility] ALT 19 5 - 55 U/L 03/30/2025 10:30 AM [facility] AST 16 5 - 34 U/L 03/30/2025 10:30 AM [facility] Anion Gap 11 6 - 16 03/30/2025 10:30 AM [facility] BUN/Creatinine Ratio 19 7 - 23 03/30/2025 10:30 AM [facility] Osmolality Calculated 290 275 - 295 mOsm/kg 03/30/2025 10:30 AM [facility] Albumin/Globulin Ratio 1.4 1.1 - 2.3 03/30/2025 10:30 AM [facility] eGFR by CKD-EPI >90 >=90 mL/min/1.7 3 m2 03/30/2025 10:30 AM [facility] Blood BLOOD SPECIMEN / Unknown Venipuncture / Unknown 03/30/2025 9:44 AM CDT 03/30/2025 9:56 AM CDT Blair Raymond MD LAB - CHEMISTRY ORDERABLES Fi nal Result Performing Organization Address [facility] Co de Phone Number [address] [phone], [facility] [phone] * HCG BETA BLOOD QUANTITATIVE (03/30/2025 9:44 AM CDT) [facility] Beta-hCG Total Quantitative <3 mIU/mL 03/30/2025 10:38 AM [facility] Comment: HCG Numeric Result Interpretation: Non- Females: < 5 mIU/mL Post-Menopausal Females: < 7 mIU/mL This assay is cleared for use in the early detection of only. It is not approved for any other uses such as tumor marker screening, tumor marker monitoring, etc. and should not be used for any other purposes. Blood BLOOD SPECIMEN / Unknown Venipuncture / Unknown 03/30/2025 9:44 AM CDT 03/30/2025 9:56 AM CDT Blair Raymond MD LAB - CHEMISTRY ORDERABLES Fi nal Result Performing Organization Address City/[facility]/ZIP Co de Phone Number [address] [address], [place] [phone] * LIPASE BLOOD (03/30/2025 9:44 AM CDT) Lipase 8 8 - 78 U/L 03/30/2025 10:30 AM CDT [facility] Blood BLOOD SPECIMEN / Unknown Venipuncture / Unknown 03/30/2025 9:44 AM CDT 03/30/2025 9:56 AM CDT Narrative [facility] - 03/30/2025 10:30 AM CDT Lipase results from the [place] analyzer may not be comparable with other methodologies. us Blair Raymond MD LAB - CHEMISTRY ORDERABLES nal Result [facility] [address] [place] [address], [place] [phone] from Last 3 Months Insurance [facility] Advance Directives * Full Code (Latest Code Status on File) Date Activated Date Inactivated Comments 09/10/2019 7:45 PM 09/13/2019 1:16 PM * Full Code Date Activated Date Inactivated Comments 08/30/2019 12:09 PM 09/03/2019 7:44 PM * Full Code Date Activated Date Inactivated Comments 02/09/2017 2:13 PM 02/10/2017 3:09 PM Care Teams Perlite Grinder Relationship Specialty Start Date End Date Radha Aguilera [address] [place] [phone] PCP - General 03/30/25
--- OUTSIDE RECORDS SUMMARY | 2025-06-29 09:58 | XMS_ITS | Clinical Summary ---
Author Organization [facility] [place] Address [address] [place] [address] Care Team Providers Care Varnish Dipper Name Role Phone Ankur Torres MD Unavailable [phone] Radha Aguilera NP Primary Care Provider [phone] Georgi Knight MD Unavailable Allergies No known active allergies Medications pantoprazole DR (PROTONIX) 40 mg EC tablet Take 1 tablet (40 mg total) by mouth 2 (two) times a day 60 tablet 1 5 Active sucralfate (CARAFATE) suspension 1 gram/10 mL Take 10 mL (1 g total) by mouth 4 (four) times a day (with meals and nightly) 1200 mL 1 5 Active psyllium husk (KONSYL) 6 gram packet Take 1 packet (6 g total) by mouth daily 30 packet 5 Active ondansetron ODT (ZOFRAN-ODT) 4 mg disintegrating tablet Take 1 tablet (4 mg total) by mouth every 8 (eight) hours as needed for nausea or vomiting 20 tablet 5 Active dicyclomine (BENTYL) 20 mg tablet Take 1 tablet (20 mg total) by mouth 2 (two) times a day 20 tablet 5 Active ketorolac (TORADOL) 10 mg tablet Take 1 tablet (10 mg total) by mouth every 6 (six) hours as needed for pain 20 tablet Active Hospital, Clinic, or Other Facility Administered Medication Ordered Dose Route Frequency Start Date End Date Status levonorgestreL (MIRENA) 21 mcg/24 hours (8 yrs) 52 mg IUDIndications:Preg rc Contraception intrauterine Continuous (implanted device) 08/08/2023 Active Active Problems Problem Noted Date Diagnosed Date Abnormal finding on GI tract imaging 01/24/2025 Abdominal pain, generalized 01/23/2025 Epigastric pain 08/14/2024 Nausea and vomiting 07/19/2024 Assessment & Plan (07/19/2024 10:15 AM CDT): Chronic nausea and vomiting, suspect cannabinoid hyperemesis syndrome. -recommend avoiding marijuana Anemia 07/19/2024 Assessment & Plan (07/19/2024 10:15 AM CDT): Chronic anemia, labs March 2024 with a hemoglobin of 10.8. Patient denies any overt GI bleeding. -schedule colonoscopy -The risks (risks of bleeding, infection, perforation requiring surgery, missed polyps/cancer, dental injury, aspiration pneumonia, anesthesia complications such as drug reaction and cardiopulmonary complications including rare chance of ), benefits, and alternatives of the planned procedure were explained to the patient who understands and consents to having procedure done. Well woman exam 03/21/2024 Overview (03/20/2025): Recommended screenings and preventive care discussed: Reviewed general breast health: Self Breast Exams Mammogram Annually after age 40: N/A Pap w/reflex HPV: Pap History: - 12/17/22: LSIL/HPV+ - 01/07/23: colpo unsatisfactory, no abnormalities seen, no biopsies taken () 11/25/23 Colpo Clinic: (no show) Pap collected at [facility] on 03/21/24: NILM, cotest due in 1 year per [facility] - needs Gardasil Vaccine: completed 2008 NG/CT/Trich: Ordered HIV/HepC/RPR: Ordered Contraception reviewed. Patient plans: IUD removal today, Depo injection today (UPT neg in clinic) In basket message to establish care with [facility]. Diet and exercise discussed. Calcium and vitamin D intake discussed. Osteoporosis with DEXA Scan: N/A Colonoscopy/Cologard: N/A < 45 yo Follow up in 1 year of sooner if needed. Encounter for IUD removal 03/21/2024 Overview (03/21/2024): -IUD removed without difficulty. -NG/CT/Trich collected. -UPT negative in clinic. -Depo injection given. Abdominal pain 12/20/2023 Assessment & Plan (07/19/2024 10:15 AM CDT): Periumbilical abdominal pain radiating to the right upper quadrant, intermittent, can last for a week, associated with nausea and vomiting. Patient underwent cholecystectomy January 2024. Patient has had multiple ER visits for these complaints. CT scan February 2024 unremarkable. Differential includes GERD versus peptic ulcer disease versus marijuana use. -avoid NSAIDs and marijuana -start omeprazole 20 mg p.o. daily -schedule EGD -The risks (risks of bleeding, infection, perforation requiring surgery, missed polyps/cancer, dental injury, aspiration pneumonia, anesthesia complications such as drug reaction and cardiopulmonary complications including rare chance of ), benefits, and alternatives of the planned procedure were explained to the patient who understands and consents to having procedure done. 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 Encouraged her to call the surgeons office on Tuesday to discuss her gallbladder. Eat bland foods. Can take OTC pepcid twice a day. Tension type headache 01/10/2023 Abnormal Pap smear of cervix 01/06/2023 Overview (03/26/2025): Pap History: - 12/17/22: LSIL/HPV+ - 01/07/23: colpo unsatisfactory, no abnormalities seen, no biopsies taken (). Did not present for colpo. 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 pylori infection 11/18/2022 Overview (08/08/2023): - Diagnosed after multiple ED visits for abdominal pain/bloating in 10/2022 - Urea breath test positive 10/28/22 - S/p treatment with: amoxicillin/metronidazole x2 weeks, omeprazole x 1week - Symptoms resolved, then returned (persistent nausea/diarrhea) - Repeat urea breath test positive 05/18/2023 - Given recent metro use, would typically consider bismuth quadruple therapy, however tetracyclines CI in , rx'd for triple therapy - Current regimen: Clarithromycin 500mg BID, amox 1g BID, PPI BID x14d Plan: - Patient picked up abx but did not take > patient to sent in picture of abx to ensure corrects meds > then recommend starting and completing course as prescribed - Test to confirm eradication with urea breath test 2 weeks s/p completion of course (given need to hold PPI x1-2 weeks prior to testing) -08/08: Encouraged to follow up with PCP Encounters Date Type Department Care Team Description 05/06/2025 2:45 PM CDT - 05/06/2025 4:39 PM CDT Emergency [address] [address] Enteritis (Primary Dx); Cyst of right ovary Discharge Disposition: Discharge to home or self care 05/06/[address] [address] Olivia Martell RN 05/05/2025 1:21 PM CDT - 05/05/2025 2:40 PM CDT Emergency [address] [address] Abdominal pain (Primary Dx) Discharge Disposition: Left Against Medical Advice from Last 3 Months Immunizations Immunization Administration Dates Next Due Tdap 05/02/2023 Surgical History Surgery Date Site/Laterality Comments ORAL SURGERY childhood CHOLECYSTECTOMY COLONOSCOPY UPPER GASTROINTESTINAL ENDOSCOPY Medical History Medical History Date Comments Murmur Anxiety Migraine GERD (gastroesophageal reflux disease) H. pylori infection Motion sickness Irritable bowel syndrome Sickle cell trait Anemia KEYANA Last menstrual period (LMP) > 10 days ago 2023 Cholelithiasis Dysphagia Urinary tract infection Anxiety Family History Medical History Relation Name Comments Hypertension Father Diabetes Father's Sister Hypertension Paternal Grandfather Relation Name Status Comments Father Father's Sister Paternal Grandfather Social History Tobacco Use Types Packs/Day Years Used Date Smoking Tobacco: Never Smokeless Tobacco: Never Tobacco Cessation:Counseling Given: Not Answered Alcohol Use Standard Drinks/Week Comments Not Currently 0 (1 standard drink = 0.6 oz pur e alcohol) [facility] Utilities Answer Date Recorded In the past 12 months has e [employer], [employer], oil, or water [employer] threatened to shut off services in your [...] week 01/24/2025 How often do you attend [facility] or [facility] services? Never 01/24/2025 Do you belong to any clubs o r organizations such as restorationist groups, unions, fraternal or athletic groups, or [...] you are drinking? Patient does not drink 4 Q3: How often do you have si x or more drinks on one occasion? Never 10/15/2024 Overall Financial Resource Strain (CARDIA) Answe r Date Recorded How hard is it for you to pa y for the very basics like food, housing, medical care, and heating? Not hard at all 01/24/2025 [facility] - Occupational Stress [...] place to sleep or slept in a alf (including now)? No 03/21/2024 Sherman Depression Scale Answer Date Recorded Sherman Depression Scale Total 10 08/08/2023 The thought [...] any time in the past 12 m ont, were you homeless or living in a alf (including now)? No 01/24/2025 Personal Safety Answer [...] PM CDT Sexual Orientation Not on file Obstetrics History Para Term AB IAB SAB Ectopic Multiple Livin g Live Births 2 2 1 1 0 2 2 Date Outcome GA Total Labor Labor/2nd/3rd Weight Sex Type Anes PTL Kisha A1 A5 Name Clin 2019 36w 5d F Vag-Sp ont Livin g Complications:Other (Comment ) 2022 Term 37w 3d 0h 25m 0h 19m/0h 06m 2.94 kg (6 lb 7.7 oz) F Vagina l Epidur al N Livin g 6 8 DHARMESH ,GIRL AURMO NI [address], Sonia patel MD Complications:None Delivery Location:[facility] ([facility]) Comments G1: IOL at 36w5d for FGR, la te deceleration on NST, new olioghydramnios Last Filed Vital Signs Vital Sign Reading Time Taken Comments Blood Pressure 99/59 05/06/2025 4:35 PM CDT Pulse 89 05/06/2025 4:35 PM CDT Temperature 36.9 C (98.4 F) 05/06/2025 10:40 AM CDT Respiratory Rate 19 05/06/2025 4:35 PM CDT Oxygen Saturation 100% 05/06/2025 4:35 PM CDT Inhaled Oxygen Concentration - - Weight 51.3 kg (113 lb) 05/06/2025 10:56 AM CDT Height 162.6 cm (5' 4) 01/23/2025 6:30 PM CDT Body Mass Index 19.4 01/23/2025 6:30 PM CDT Plan of Treatment Health Maintenance Due Date Last Done Comments Meningococcal B Vaccine (1 o f 4 - Increased Risk) 2007 HPV Vaccines (3 - 2-dose series) 08/08/2009 04/22/20 09, 02/05/2009 Pneumococcal vaccine <65 (1 of 2 - PCV) 2016 Covid-19 Vaccine (2 - 2023-2 5 season) 2024 09/30/2021 Depression Screening 08/08/2024 08/08/2023 Regular Well Visit/Exam 18-64 03/21/2025 03/21/2024 Cervical Cancer Screening 03/30/20252023, 03/21/2024, 12/17/2022 Influenza Vaccine (#1) 2025 DTaP/Tdap/Td Vaccine (8 - Td or Tdap) 05/02/2033 05/02/2023, 07/11/2019, 05/30/2002, Additional history exists Hepatitis B Screening Completed 08/17/1999 , 06/27/1998, 01/27/1998 Varicella Vaccines Completed 04/22/2009, 04/14/2000 Hepatitis C Screening Completed 03/16/2023 , 11/29/2022, 07/01/2022 Procedures Procedure Name Priority Date/Time Associated Diagnosis Comments EGFR STAT 05/06/2025 11:09 AM CDT DIFFERENTIAL AUTO STAT 05/06/2025 11: 09 AM CDT LIPASE STAT 05/06/2025 11:09 AM CDT COMPREHENSIVE METABOLIC PANEL STAT 05/06/2025 11:09 AM CDT CBC WITH AUTO DIFFERENTIAL STAT 05/06/2025 11:09 AM CDT POCT HCG, URINE Routine 05/06/2025 11:08 AM CDT URINALYSIS, MICROSCOPIC ONLY STAT 05/06/2025 11:05 AM CDT URINALYSIS AND REFLEX TO MICROSCOPIC AND CULTURE STAT 05/06/2025 11:[address] ABDOMEN PELVIS W CONTRAST ED 05/05/2025 2:05 PM CDT POCT HCG, URINE Routine 05/05/2025 12:15 PM CDT EGFR STAT 05/05/2025 11:58 AM CDT DIFFERENTIAL AUTO STAT 05/05/2025 11: 58 AM CDT ANTIBODY SCREEN STAT 05/05/2025 11:58 AM CDT ABO/RH STAT 05/05/2025 11:58 AM CDT TYPE AND SCREEN STAT 05/05/2025 11:58 AM CDT HCG, BLOOD, QUANTITATIVE STAT 05/05/2025 11:58 AM CDT LIPASE STAT 05/05/2025 11:58 AM CDT COMPREHENSIVE METABOLIC PANEL STAT 05/05/2025 11:58 AM CDT CBC WITH AUTO DIFFERENTIAL STAT 05/05/2025 11:58 AM CDT N. GONORRHOEAE/C. TRACHOMATIS AMPLIFICATION STAT 05/05/2025 11:58 AM CDT VAGINITIS PANEL STAT 05/05/2025 11:58 AM CDT URINALYSIS AND REFLEX TO MICROSCOPIC AND CULTURE STAT 05/05/2025 11:58 AM CDT HIGH RISK HPV DNA DETECTION WITH GENOTYPING Routine 03/30/2024 3:24 PM CDT Abnormal cervical Papanicolaou smear, unspecified abnormal pap finding HEPATITIS C ANTIBODY Routine 03/16/2023 5:42 PM CDT from Last 3 Months or Most Recently Relevant to Health Maintenance Results * eGFR (05/06/2025 11:09 AM CDT) Pathologist [facility] eGFR >90 >=60 mL/min/1. 73 m2 Comment: Interpretive Data Reference Interval Normal >/= 90 mL/min/1.73m2 Mildly decreased* 60 - 89 mL/min/1.73m2 Mildly to moderately decreased 45 - 59 mL/min/1.73m2 Moderately to severely decreased 30 - 44 mL/min/1.73m2 Severely decreased 15 - 29 mL/min/1.73m2 Kidney Failure < 15 mL/min/1.73m2 *Relative to young adult level Estimated glomerular filtration rate is determined by the 2020 CKD-EPI equation recommended by the National Kidney Foundation (A Unifying Approach to GFR Estimation: Recommendations of the NKF-ASK Task Force on Reassessing the Inclusion of Race in Diagnosing Kidney Disease, JASN 2020). The CKD-EPI equation should not be used for patients with unstable renal function and has not been validated in children and those over 70. Current interpretive data was last reviewed 2021. Blood 05/06/2025 11:0 9 AM CDT 05/06/2025 11:11 AM CDT us Lopez Rodríguez MD LAB BLOOD ORDERABLES Final Resul t [facility] [address] [facility] Department [place] [address] * (ABNORMAL) Differential, auto (05/06/2025 11:09 AM CDT) Pathologist [facility] Neutrophil abs 9.44(H) 1.50 - 6.50 K/cumm Imm gran abs 0.03 0.00 - 0.10 K/cumm [facility] Lymphocyte abs 1.25 0.80 - 3.30 K/cumm [facility] Monocyte abs 0.48 0.20 - 0.80 K/cumm [facility] Eosinophil abs 0.00 0.00 - 0.50 K/cumm [facility] Basophil abs 0.01 0.00 - 0.10 K/cumm [facility] Neutrophil pct 84.1 % [facility] Comment: Interpretive Data Percent cell count reference ranges are not reported, since discordance with absolute values may lead to misinterpretation of CBC data. Current Interpretive Data was last revised on 2018. Imm gran pct 0.3 % [facility] Comment: Interpretive Data Percent cell count reference ranges are not reported, since discordance with absolute values may lead to misinterpretation of CBC data. Current Interpretive Data was last revised on 2018. Lymphocyte pct 11.2 % [facility] Comment: Interpretive Data Percent cell count reference ranges are not reported, since discordance with absolute values may lead to misinterpretation of CBC data. Current Interpretive Data was last revised on 2018. Monocyte pct 4.3 % [facility] Comment: Interpretive Data Percent cell count reference ranges are not reported, since discordance with absolute values may lead to misinterpretation of CBC data. Current Interpretive Data was last revised on 2018. Eosinophil pct 0.0 % [facility] Comment: Interpretive Data Percent cell count reference ranges are not reported, since discordance with absolute values may lead to misinterpretation of CBC data. Current Interpretive Data was last revised on 2018. Basophil pct 0.1 % [facility] Comment: Interpretive Data Percent cell count reference ranges are not reported, since discordance with absolute values may lead to misinterpretation of CBC data. Current Interpretive Data was last revised on 2018. Blood 05/06/2025 11:0 9 AM CDT 05/06/2025 11:11 AM CDT us Lopez Rodríguez MD LAB BLOOD ORDERABLES Final Resul t [facility] [address] [facility] Department [place] [address] * (ABNORMAL) CBC with auto differential (05/06/2025 11:09 AM CDT) WBC 11.21(H) 3.80 - 9.90 K/cumm Hgb 11.9 11.9 - 15.5 g/dL [facility] Hct 34.6(L) 35.6 - 45.5 % [facility] Plt 243 150 - 400 K/cumm [facility] MPV 10.7 9.1 - 12.3 fL [facility] RBC 4.85 3.90 - 5.20 M/cumm [facility] MCV 71.3(L) 81.3 - 96.4 fL [facility] MCH 24.5(L) 27.1 - 33.3 pg [facility] MCHC 34.4 32.3 - 35.7 g/dL [facility] RDW CV 13.7 11.1 - 14.9 % [facility] RDW SD 34.6(L) 35.7 - 48.1 fL [facility] NRBC abs 0.00 0.00 - 0.01 K/cumm [facility] Blood Venous blood specimen / Unknown 05/06/2025 11:09 AM CDT 05/06/2025 11:11 AM CDT Lopez Rodríguez MD LAB BLOOD ORDERABLES Final Resul t Performing Organization Address [facility] Co de Phone Number [address] [place] [employer] [place] [address] * Lipase (05/06/2025 11:09 AM CDT) [facility] Lipase 65 10 - 99 Units/L Blood 05/06/2025 11:0 9 AM CDT 05/06/2025 11:11 AM CDT Lopez Rodríguez MD LAB BLOOD ORDERABLES Final Resul t Performing Organization Address [facility] Co de Phone Number [address] [place] [employer] [place] [address] * (ABNORMAL) Comprehensive metabolic panel (05/06/2025 11:09 AM CDT) [facility] Sodium 139 135 - 145 mmol/L Potassium, pl 3.7 3.3 - 4.9 mmol/L [facility] Comment:Hemolyzed; Potassium value may be falsely elevated by as much as 1.0 mmol/L. Suggest redraw and reanalysis. Chloride 103 97 - 110 mmol/L [facility] CO2 22 22 - 32 mmol/L [facility] Anion gap 14 2 - 15 mmol/L [facility] BUN 10 6 - 25 mg/dL [facility] Creatinine 0.65 0.60 - 1.10 mg/dL [facility] Glucose 127 70 - 199 mg/dL [facility] Comment: Interpretive Data Fasting glucose >/= 126 mg/dl is diagnostic for diabetes. Fasting is defined as no caloric intake for at least 8 hours. Fasting glucose between 100 mg/dl to 125 mg/dl is diagnostic of prediabetes. In a patient with classic symptoms of hyperglycemia or hyperglycemic crisis, a random glucose >/= 200 mg/dl is diagnostic for diabetes. In the absence of unequivocal hyperglycemia, results should be confirmed by repeat testing. The classification and Diagnosis of Diabetes Diabetes Care 2021; 46: S19-S40. Current interpretive data was last revised 2022. Calcium 9.8 8.5 - 10.3 mg/dL [facility] Bilirubin, total 1.6(H) 0.1 - 1.2 mg/dL [facility] Protein, pl 7.4 6.5 - 8.5 g/dL [facility] Albumin 4.6 3.5 - 5.0 g/dL [facility] Alk phos 65 40 - 130 Units/L [facility] ALT 19 7 - 45 Units/L [facility] AST 22 10 - 45 Units/L [facility] Comment:Hemolyzed; result ma y be falsely elevated Blood Venous blood specimen / Unknown 05/06/2025 11:09 AM CDT 05/06/2025 11:11 AM CDT us Lopez Rodríguez MD LAB BLOOD ORDERABLES Final Resul t [facility] [address] [facility] Department [place] [address] * POCT hCG, urine (05/06/2025 11:08 AM CDT) HCG, ur, POC Negative Negative Lot Number [id number] QC Backgroud Clear Acceptable QC Control Line Acceptable Urine 05/06/2025 11:0 8 AM CDT Lopez Rodríguez MD POINT OF CARE TEST ORDERABLES Fi nal Result * (ABNORMAL) Urinalysis reflex to microscopic and culture Urine (05/06/2025 11:05 AM CDT) Color, ur Yellow Yellow Clarity, ur Cloudy(A) Clear [facility] Specific gravity, ur 1.033(H) 1.003 - 1.030 [facility] pH, urine 6.0 [facility] Comment: Interpretive Data U rine pH is affected by diet, medications, systemic acid-base disturbances, and renal tubular function. pH may affect urinary stone formation. For example, urine pH below 6.0 may help reduce the tendency for calcium phosphate stones and pH greater than 6.0 may reduce the tendency for uric acid stone formation. Source: [facility] Current Interpretive Data was last revised on 2017 Protein, ur ql 1+(A) Negative [facility] Glucose, ur ql Negative Negative [facility] Ketones, ur 1+(A) Negative [facility] Bilirubin, ur Negative Negative [facility] Blood, ur Negative Negative [facility] Urobilinogen, ur <2.0 <2.0 mg/dL [facility] Nitrite, ur Negative Negative [facility] Leukocyte esterase, ur Negative Negative [facility] UA reflex comment Reflex to microscopic UA will be performed. [facility] Urine 05/06/2025 11:0 5 AM CDT 05/06/2025 11:08 AM CDT Lopez Rodríguez MD LAB MICROBIOLOGY - GENERAL ORDER [place] Final Result [facility] [address] [facility] Department [place] [address] * (ABNORMAL) Urinalysis, microscopic only (05/06/2025 11:05 AM CDT) WBC, ur 0-5 0 - 5 /HPF RBC, ur 0-2 0 - 2 /HPF [facility] Epithelial cells, squamous, ur 6-10(A) 0 - 5 /HPF [facility] Comment:Suggestive of contam ination. Consider recollection by clean catch. Mucous, ur Present(A) [facility] Uric acid crystals, ur 2+(A) [facility] Culture Reflex Comment Reflex conditions for urine culture (WBC >10) not met. [facility] Urine 05/06/2025 11:0 5 AM CDT 05/06/2025 11:08 AM CDT us Lopez Rodríguez MD LAB URINE ORDERABLES Final Resul t [facility] [address] [facility] Department [place] [address] * CT Abdomen Pelvis W Contrast (05/05/2025 2:05 PM CDT) Anatomical Region Laterality Modality Body N/A Computed Tomogra phy 05/05/2025 3:41 PM CDT Narrative 05/05/2025 3:56 PM CDT EXAM DESCRIPTION: CT ABDOMEN PELVIS W CONTRAST REASON FOR STUDY: Abdominal pain, acute, nonlocalized Pt to ED from home for complaint of low abdominal cramping with mild nausea/vomiting. Pt describes the pain as sharp contractions and reports concern for with being 3 weeks late on period. Pt reports decreased PO intake over the last couple days but increased hunger. Pain decreased with a heat pack from EMS. Denies vaginal bleeding or pain but does report increased vaginal discharge. Hx: gerd, IBS, sickle cell, cholecystectomy TECHNIQUE: CT scan of the abdomen and pelvis performed with intravenous and without oral contrast using helical scanning technique with dynamic intravenous contrast injection. Reconstructed coronal and sagittal MPR images reviewed. All images stored on PACS. Automated exposure control was used as a dose optimization technique for this examination. CONTRAST TYPE/DOSE: 92mL of IOVERSOL 350 MG IODINE/ML INTRAVENOUS SYRINGE injected COMPARISON: 01/23/2025 FINDINGS: LOWER CHEST: Mild scattered subsegmental atelectasis. No pleural effusion. Imaged portions of the heart and esophagus are within normal limits. LIVER: Normal size. No identified cystic or solid masses. The hepatic and portal veins are patent. Focal fatty infiltration adjacent the hepatic falciform ligament. GALLBLADDER: Prior cholecystectomy. BILE DUCTS: No intrahepatic or extrahepatic ductal dilatation. SPLEEN: Normal size. No focal lesions. PANCREAS: No identified cystic or solid masses. No significant calcifications. No adjacent inflammation or peripancreatic fluid collections. Pancreatic duct not dilated. ADRENALS: Normal. KIDNEYS/URINARY TRACT: No identified significant cystic or solid masses. No visualized stones. No hydronephrosis or hydroureter. Symmetric enhancement. Urinary bladder is unremarkable. GI: The stomach is normal. There is circumferential wall thickening and mucosal fold thickening of several nondilated segments of small bowel in the left hemiabdomen which could reflect acute enteritis. The colon is normal in course and caliber no evidence of obstruction or inflammation. The appendix is normal. PERITONEUM: No free air. Trace volume free pelvic fluid. No lymphadenopathy. RETROPERITONEUM: No mass or adenopathy. REPRODUCTIVE: The uterus is retroverted. Right ovarian cyst/corpus luteum cyst measures 25 mm. VASCULATURE: No abdominal aortic aneurysm. The abdominal aorta and its branches are patent. MUSCULOSKELETAL: No fractures or aggressive osseous lesions IMPRESSION: 1. Circumferential wall thickening and mucosal fold thickening of several nondilated segments of small bowel in the left hemiabdomen which could reflect acute enteritis. 2. Right ovarian cyst/corpus luteum cyst measures 25 mm. THIS IS AN ELECTRONICALLY VERIFIED FINAL REPORT 05/05/2025 3:56 PM - Electronically signed by Wale Guerra M.D. AT T: Report ID: [id number] Reading Location: [place] [address] Procedure Note Wale Guerra MD - 05/05/2025 EXAM DESCRIPTION: CT ABDOMEN PELVIS W CONTRAST REASON FOR STUDY: Abdominal pain, acute, nonlocalized Pt to ED from home for complaint of low abdominal cramping with mild nausea/vomiting. Pt describes the pain as sharp contractions and reports concern for with being 3 weeks late on period. Pt reportsdecreased PO intake over the last couple days but increased hunger. Pain decreased with a heat pack from EMS. Denies vaginal bleeding or pain but does report increased vaginal discharge. Hx: gerd, IBS, sickle cell, cholecystectomy TECHNIQUE: CT scan of the abdomen and pelvis performed with intravenousand without oral contrast using helical scanning technique with dynamic intravenous contrast injection. Reconstructed coronal and sagittal MPRimages reviewed. All images stored on PACS. Automated exposure control was usedas a dose optimization technique for this examination. CONTRAST TYPE/DOSE: 92mL of IOVERSOL 350 MG IODINE/ML INTRAVENOUSSYRINGE injected COMPARISON: 01/23/2025 FINDINGS: LOWER CHEST: Mild scattered subsegmental atelectasis. Nopleural effusion. Imaged portions of the heart and esophagus are within normal limits. LIVER: Normal size. No identified cystic or solid masses. The hepaticand portal veins are patent. Focal fatty infiltration adjacent the hepatic falciform ligament. GALLBLADDER: Prior cholecystectomy. BILE DUCTS: No intrahepatic or extrahepatic ductal dilatation. SPLEEN: Normal size. No focal lesions. PANCREAS: No identified cystic or solid masses. No significant calcifications. No adjacent inflammation or peripancreatic fluidcollections. Pancreatic duct not dilated. ADRENALS: Normal. KIDNEYS/URINARY TRACT: No identified significant cystic or solid masses.No visualized stones. No hydronephrosis or hydroureter. Symmetricenhancement. Urinary bladder is unremarkable. GI: The stomach is normal. There is circumferential wall thickening and mucosal fold thickening of several nondilated segments of small bowel inthe left hemiabdomen which could reflect acute enteritis. The colon is normalin course and caliber no evidence of obstruction or inflammation. Theappendix is normal. PERITONEUM: No free air. Trace volume free pelvic fluid. No lymphadenopathy. RETROPERITONEUM: No mass or adenopathy. REPRODUCTIVE: The uterus is retroverted. Right ovarian cyst/corpusluteum cyst measures 25 mm. VASCULATURE: No abdominal aortic aneurysm. The abdominal aorta and its branches are patent. MUSCULOSKELETAL: No fractures or aggressive osseous lesions IMPRESSION: 1. Circumferential wall thickening and mucosal foldthickening of several nondilated segments of small bowel in the left hemiabdomen whichcould reflect acute enteritis. 2. Right ovarian cyst/corpus luteum cyst measures 25 mm. THIS IS AN ELECTRONICALLY VERIFIED FINAL REPORT 05/05/2025 3:56 PM - Electronically signed by Wale Guerra M.D. AT T: Report ID: [id number] Reading Location: [place] [address] PROCEDURES Final Resul t * POCT hCG, urine (05/05/2025 12:15 PM CDT) [facility] HCG, ur, POC Negative Negative Lot Number [id number] QC Backgroud Clear Acceptable QC Control Line Acceptable Urine 05/05/2025 12:1 5 PM CDT Renuka DIAZ POINT OF CARE TEST ORD ERABLES Final Result * N. gonorrhoeae/C. trachomatis Amplification Vaginal (05/05/2025 11:58 AM CDT) [facility] C. trachomatis Not Detected Not Detected N. gonorrhoeae Not Detected Not Detected [facility] Comment: Interpretive Data This assay detects Chlamydia trachomatis and Neisseria gonorrhoeae by nucleic acid amplification testing (NAAT). This assay has been cleared by the [place] Food and Drug administration. The performance characteristics of this test have been verified by the [facility]. The performance characteristics of this test have not been evaluated in individuals less than 14 years of age. Current Interpretive Data last revised 2023. Vaginal (None) 05/05/2025 11 :58 AM CDT 05/05/2025 12:03 PM CDT Renuka DIAZ LAB MICROBIOLOGY - GEN ERAL ORDERABLES Final Result [facility] [address] [facility] Department [place] [address] * (ABNORMAL) Vaginitis panel Vaginal (05/05/2025 11:58 AM CDT) [facility] Bacterial Vaginosis Not Detected Not Detected Comment:A negative result do es not preclude a possible infection. Results should be considered in conjunction with clinical presentation to determine the disease status. Shayy group Detected(A) Not Detected [facility] Comment:Shayy species can be present as commensal organisms in women; results should be considered in conjunction with clinical presentation to determine the disease status. Shayy glabrata/ krusei Not Detected Not Detected [facility] Trichomonas DNA Not Detected Not Detected [facility] Vaginal 05/05/2025 11:5 8 AM CDT 05/05/2025 12:03 PM CDT Leonel BATISTA - 05/05/2025 1:03 PM CDT The Cepheid Xpert Xpress MVP test detects DNA targets from anaerobic bacteria associated with bacterial vaginosis, Shayy species associated with vulvovaginal candidiasis, and Trichomonas vaginalis by nucleic acid amplification testing (NAAT). Results should be interpreted in conjunction with other clinical data. This test cannot be used to assess therapeutic success or failure because target nucleic acids may persist following antimicrobial therapy. This test has been cleared by the [place] Food and Drug Administration to aid in the diagnosis of vaginal infections in symptomatic women ages 14 and older. The performance characteristics of this test have been verified by the [facility]. The Cepheid Xpert Xpress MVP test detects DNA targets from anaerobic bacteria associated with bacterial vaginosis, Shayy species associated with vulvovaginal candidiasis, and Trichomonas vaginalis by nucleic acid amplification testing (NAAT). Results should be interpreted in conjunction with other clinical data. This test cannot be used to assess therapeutic success or failure because target nucleic acids may persist following antimicrobial therapy. This test has been cleared by the [place] Food and Drug Administration to aid in the diagnosis of vaginal infections in symptomatic women ages 14 and older. The performance characteristics of this test have been verified by the [facility]. Renuka DIAZ LAB MICROBIOLOGY - GEN ERAL ORDERABLES Final Result [place] [address] [facility] Department of Laboratories [place], [place] [id number] * eGFR (05/05/2025 11:58 AM CDT) Pathologist [facility] eGFR >90 >=60 mL/min/1. 73 m2 Comment: Interpretive Data Reference Interval Normal >/= 90 mL/min/1.73m2 Mildly decreased* 60 - 89 mL/min/1.73m2 Mildly to moderately decreased 45 - 59 mL/min/1.73m2 Moderately to severely decreased 30 - 44 mL/min/1.73m2 Severely decreased 15 - 29 mL/min/1.73m2 Kidney Failure < 15 mL/min/1.73m2 *Relative to young adult level Estimated glomerular filtration rate is determined by the 2020 CKD-EPI equation recommended by the National Kidney Foundation (A Unifying Approach to GFR Estimation: Recommendations of the NKF-ASK Task Force on Reassessing the Inclusion of Race in Diagnosing Kidney Disease, JASN 202). The CKD-EPI equation should not be used for patients with unstable renal function and has not been validated in children and those over 70. Current interpretive data was last reviewed 2021. Blood 05/05/2025 11:5 8 AM CDT 05/05/2025 12:03 PM CDT us Renuka DIAZ LAB BLOOD ORDERABLES F inal Result [facility] [address] [facility] Department [place] [address] * (ABNORMAL) Differential, auto (05/05/2025 11:58 AM CDT) Neutrophil abs 6.73(H) 1.50 - 6.50 K/cumm Imm gran abs 0.03 0.00 - 0.10 K/cumm [facility] Lymphocyte abs 1.83 0.80 - 3.30 K/cumm [facility] Monocyte abs 0.47 0.20 - 0.80 K/cumm [facility] Eosinophil abs 0.37 0.00 - 0.50 K/cumm [facility] Basophil abs 0.03 0.00 - 0.10 K/cumm [facility] Neutrophil pct 71.2 % [facility] Comment: Interpretive Data Percent cell count reference ranges are not reported, since discordance with absolute values may lead to misinterpretation of CBC data. Current Interpretive Data was last revised on 2018. Imm gran pct 0.3 % [facility] Comment: Interpretive Data Percent cell count reference ranges are not reported, since discordance with absolute values may lead to misinterpretation of CBC data. Current Interpretive Data was last revised on 2018. Lymphocyte pct 19.3 % [facility] Comment: Interpretive Data Percent cell count reference ranges are not reported, since discordance with absolute values may lead to misinterpretation of CBC data. Current Interpretive Data was last revised on 2018. Monocyte pct 5.0 % [facility] Comment: Interpretive Data Percent cell count reference ranges are not reported, since discordance with absolute values may lead to misinterpretation of CBC data. Current Interpretive Data was last revised on 2018. Eosinophil pct 3.9 % [facility] Comment: Interpretive Data Percent cell count reference ranges are not reported, since discordance with absolute values may lead to misinterpretation of CBC data. Current Interpretive Data was last revised on 2018. Basophil pct 0.3 % [facility] Comment: Interpretive Data Percent cell count reference ranges are not reported, since discordance with absolute values may lead to misinterpretation of CBC data. Current Interpretive Data was last revised on 2018. Blood 05/05/2025 11:5 8 AM CDT 05/05/2025 12:03 PM CDT Renuka DIAZ LAB BLOOD ORDERABLES F inal Result [facility] [address] [facility] Department [place] [address] * (ABNORMAL) Urinalysis reflex to microscopic and culture Urine (05/05/2025 11:58 AM CDT) Color, ur Yellow Yellow Clarity, ur Clear Clear [facility] Specific gravity, ur 1.024 1.003 - 1.030 [facility] pH, urine 7.0 [facility] Comment: Interpretive Data U rine pH is affected by diet, medications, systemic acid-base disturbances, and renal tubular function. pH may affect urinary stone formation. For example, urine pH below 6.0 may help reduce the tendency for calcium phosphate stones and pH greater than 6.0 may reduce the tendency for uric acid stone formation. Source: [facility] [employer]ite[employer] Current Interpretive Data was last revised on 2017 Protein, ur ql Negative Negative [facility] Glucose, ur ql Negative Negative [facility] Ketones, ur 2+(A) Negative [facility] Bilirubin, ur Negative Negative [facility] Blood, ur Negative Negative [facility] Urobilinogen, ur <2.0 <2.0 mg/dL [facility] Nitrite, ur Negative Negative [facility] Leukocyte esterase, ur Negative Negative [facility] UA reflex comment Reflex conditions for microscopic UA and culture not met. [facility] Urine 05/05/2025 11:5 8 AM CDT 05/05/2025 12:03 PM CDT Renuka DIAZ LAB MICROBIOLOGY - GEN ERAL ORDERABLES Final Result Performing Organization Address [facility]/ZIP Co de Phone Number [address] [place] [address] * (ABNORMAL) CBC with auto differential (05/05/2025 11:58 AM CDT) [facility] WBC 9.46 3.80 - 9.90 K/cumm Hgb 12.0 11.9 - 15.5 g/dL [facility] Hct 36.1 35.6 - 45.5 % [facility] Plt 245 150 - 400 K/cumm [facility] MPV 10.3 9.1 - 12.3 fL [facility] RBC 4.94 3.90 - 5.20 M/cumm [facility] MCV 73.1(L) 81.3 - 96.4 fL [facility] MCH 24.3(L) 27.1 - 33.3 pg [facility] MCHC 33.2 32.3 - 35.7 g/dL [facility] RDW CV 13.9 11.1 - 14.9 % [facility] RDW SD 36.3 35.7 - 48.1 fL [facility] NRBC abs 0.00 0.00 - 0.01 K/cumm [facility] Blood Venous blood specimen / Unknown 05/05/2025 11:58 AM CDT 05/05/2025 12:03 PM CDT Renuka DIAZ LAB BLOOD ORDERABLES F inal Result Performing Organization Address [facility]/ZIP Co de Phone Number [address] [place] [address] * ABO/Rh (05/05/2025 11:58 AM CDT) [facility] ABO/Rh A Positive Blood 05/05/2025 11:5 8 AM CDT 05/05/2025 12:03 PM CDT Narrative [facility] 05/05/2025 12:37 PM CDT Has the patient had Daratumumab or Isatuximab in the past 6 months?->Unknown Renuka DIAZ LAB BLOOD BANK TEST OR DERABLES Final Result Performing Organization Address [facility] Co de Phone Number [address] [address] * Antibody screen (05/05/2025 11:58 AM CDT) [facility] Tiffany, indirect, Gel Interpretation Negative ABSC Blood 05/05/2025 11:5 8 AM CDT 05/05/2025 12:03 PM CDT Narrative [facility] 05/05/2025 12:37 PM CDT Has the patient had Daratumumab or Isatuximab in the past 6 months?->Unknown Renuka DIAZ LAB BLOOD BANK TEST OR DERABLES Final Result Performing Organization Address [facility] de Phone Number [address] [address] * hCG, blood, quantitative (05/05/2025 11:58 AM CDT) [facility] hCG, quant <5.0 0.0 - 5.0 IUnits/L Comment: Interpretive Data Male: < 5 IU/L Non- premenopausal Female: <5 IU/L The Clementina hCG Beta Quant assay procedure was used. Results from different manufacturers or methods may not be comparable. Serial testing should be performed using the same method. Interpretive Data was last revised on 2023 Blood 05/05/2025 11:5 8 AM CDT 05/05/2025 12:03 PM CDT Renuka DIAZ LAB BLOOD ORDERABLES F inal Result [place] [id number] [place] [address] * Lipase (05/05/2025 11:58 AM CDT) [facility] Lipase 17 10 - 99 Units/L Blood Venous blood specimen / Unknown 05/05/2025 11:58 AM CDT 05/05/2025 12:03 PM CDT Renuka DIAZ LAB BLOOD ORDERABLES F inal Result Performing Organization Address City/[facility] Co de Phone Number [address] [address] * (ABNORMAL) Comprehensive metabolic panel (05/05/2025 11:58 AM CDT) [facility] Sodium 140 135 - 145 mmol/L Potassium, pl 3.6 3.3 - 4.9 mmol/L [facility] Chloride 105 97 - 110 mmol/L [facility] CO2 24 22 - 32 mmol/L [facility] Anion gap 11 2 - 15 mmol/L [facility] BUN 7 6 - 25 mg/dL [facility] Creatinine 0.62 0.60 - 1.10 mg/dL [facility] Glucose 85 70 - 199 mg/dL [facility] Comment: Interpretive Data Fasting glucose >/= 126 mg/dl is diagnostic for diabetes. Fasting is defined as no caloric intake for at least 8 hours. Fasting glucose between 100 mg/dl to 125 mg/dl is diagnostic of prediabetes. In a patient with classic symptoms of hyperglycemia or hyperglycemic crisis, a random glucose >/= 200 mg/dl is diagnostic for diabetes. In the absence of unequivocal hyperglycemia, results should be confirmed by repeat testing. The classification and Diagnosis of Diabetes Diabetes Care 202; 46: S19-S40. Current interpretive data was last revised 2022. Calcium 9.1 8.5 - 10.3 mg/dL [facility] Bilirubin, total 1.3(H) 0.1 - 1.2 mg/dL [facility] Protein, pl 6.7 6.5 - 8.5 g/dL [facility] Albumin 4.1 3.5 - 5.0 g/dL [facility] Alk phos 61 40 - 130 Units/L [facility] ALT 18 7 - 45 Units/L [facility] AST 19 10 - 45 Units/L [facility] Blood 05/05/2025 11:5 8 AM CDT 05/05/2025 12:03 PM CDT Renuka DIAZ LAB BLOOD ORDERABLES F inal Result [place] [address] [facility] Department [place] [address] * High Risk HPV DNA Detection with Genotyping (Molecular component) (03/30/2024 3:24 PM CDT) Pathologist [facility] HPV HR 16 Not Detected Not Detected [facility] HPV HR 18 Not Detected Not Detected [facility] HPV HR Non 16/18 Not Detected Not Detected [facility] Comment: Interpretive Data Nucleic acid amplification for detection of high-risk Human Papilloma virus (HPV) is performed by the Clementina Rahul 6800 HPV test. This assay specifically detects HPV-16 and HPV-18 genotypes. The following HPV genotypes are detected as high-risk HPV: HPV-31, 33, 35, ,39, 45, 51, 52, 56, 58, 59, 66, and 68. This assay has been approved by the [place] Food and Drug Administration for detection of HPV in cervical specimens collected by a physician using an endocervical brush/spatula or cervical broom and placed in the ThinPrep Pap Test PreservCyt collection containers. The performance characteristics of this test have been verified by the [facility] Molecular Infectious Disease laboratory. Correlate with separately reported cytology results, as applicable. 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 Does NOT exclude the possibility of recent exposure to HCV. Current interpretive data was last revised on 22 Blood 03/16/2023 5:42 PM CDT 03/16/2023 5:56 PM CDT Leslie Maxwell NP LAB MICROBIOLOGY - GENERAL ORDERABLES Final Result Performing Organization Address [facility] Co de Phone Number [facility] [place] [address] from Last 3 Months or Most Recently Relevant to Health Maintenance Insurance [facility] Advance Directives For more information, please contact: [phone] * Full Code (Latest Code Status on File) Date Activated Date Inactivated Comments 01/24/2025 11:53 AM 01/24/2025 11:08 PM * Full Code Date Activated Date Inactivated Comments 01/23/2025 6:44 PM 01/24/2025 11:53 AM * Full Code Date Activated Date Inactivated Comments 12/21/2023 1:10 AM 12/23/2023 7:23 PM * Full Code Date Activated Date Inactivated Comments 06/24/2023 11:59 PM 06/26/2023 4:22 PM * Full Code Date Activated Date Inactivated Comments 06/24/2023 1:23 PM 06/24/2023 11:59 PM Full CPR in case of cardiopulmonary arrest Care Teams Varnish Dipper Relationship Specialty Start Date End Date Radha Aguilera NP [address] [place] [id number] PCP - General Internal Medicine 01/02/25 Ankur Torres MD [address] [place] [id number] Consulting Physician General Surgery 12/23/23 Georgi Knight MD [facility] [address] [address] Consulting Physician Gastroenterology 01/24/25
--- OUTSIDE RECORDS SUMMARY | 2025-06-29 09:58 | XMS_ITS | Clinical Summary ---
Author Organization [facility] Address [address] [place] [address] Care Team Providers Care Fine Grader Name Role Phone None, Provider MD Primary Care Provider Unavaila ble Allergies No known active allergies Medications traMADol (ULTRAM) 50 MG tabletIndications:A cute Pain < 7 Day Supply Indications : Acute Pain < 7 Day Supply 1-2 tabs po q6 hours prn pain 12 tablet 4 Active ondansetron (ZOFRAN-ODT) 4 MG disintegrating tablet Take 1 tablet (4 mg total) by mouth every 8 (eight) hours as needed. 20 tablet 5 Active dicyclomine (BENTYL) 20 MG tablet Take 1 tablet (20 mg total) by mouth every 6 (six) hours. 30 tablet 5 Active Social History Tobacco Use Types Packs/Day Years Used Date Smoking Tobacco: Never Smokeless Tobacco: Never Alcohol Use Standard Drinks/Week Comments Yes 0 (1 standard drink = 0.6 oz pur e alcohol) 12/29/23 , socially Comments No Sex and Gender Information Value Date Recorded Sex Assigned at Female 12/31/2024 8:42 AM HEAD BANDER AND LINER OPERATOR Legal Sex Female 7:19 PM HEAD BANDER AND LINER OPERATOR Gender Identity Not on file Sexual Orientation Not on file Last Filed Vital Signs Vital Sign Reading Time Taken Comments Blood Pressure 119/81 12/31/2024 8:31 AM HEAD BANDER AND LINER OPERATOR Pulse 85 12/31/2024 8:31 AM HEAD BANDER AND LINER OPERATOR Temperature 37 C (98.6 F) 12/31/2024 8:31 AM HEAD BANDER AND LINER OPERATOR Respiratory Rate 16 12/31/2024 8:31 AM HEAD BANDER AND LINER OPERATOR Oxygen Saturation 100% 12/31/2024 8:31 AM HEAD BANDER AND LINER OPERATOR Inhaled Oxygen Concentration - - Weight 49.9 kg (110 lb) 12/31/2024 8:31 AM HEAD BANDER AND LINER OPERATOR Height 162.6 cm (5' 4) 12/31/2024 8:31 AM HEAD BANDER AND LINER OPERATOR Body Mass Index 18.88 12/31/2024 8:31 AM HEAD BANDER AND LINER OPERATOR Plan of Treatment Health Maintenance Due Date Last Done Comments Cervical Cancer Screening Pap Smear (Age 21 to 29) Every 3 Years 1997 Cervical Cancer Screening 1997 Annual Physical 2000 HPV Vaccines (3 - 2-dose series) 08/08/2009 04/22/2009, 02/05/2009 Hepatitis C 2015 Hepatitis B Vaccines (1 of 3 - 19+ 3-dose series) 2016 COVID-19 Vaccine (2023- season) 2024 DTaP, Tdap and Td Vaccines (7 - Td or Tdap) 05/02/2033 05/02/2023, 07/11/2019, 05/30/2002, Additional history exists Meningococcal B Vaccine Aged Out No l onger eligible based on patient's age to complete this topic Meningococcal Vaccine Aged Out No rima veronica eligible based on patient's age to complete this topic Pneumococcal Vaccine: Pediatrics (0 to 5 Years) and At-Risk Patients (6 to 49 Years) Aged Out No longer eligible based on patient's age to complete this topic RSV Immunizations Under 20 Months Aged Out No longer eligible based on patient's age to complete this topic Insurance * Guarantor: Chang Barroso Account Type Relation to Patient Date of Phone Billing Address Personal/Family Self 1995 [address] [place] [address] [place] Care Teams Fine Grader Relationship Specialty Start Date End Date None, Provider, PCP - General 11/05/20
--- OUTSIDE RECORDS SUMMARY | 2025-06-29 09:58 | XMS_ITS | Clinical Summary ---
Author Organization [facility] Address [address] [place] [address] Phone Care Team Providers Care Blood Bank Coordinator Name Role Phone Zoë Nino MD Primary Care Provider [phone] Allergies No known active allergies Medications medroxyPROGESTER one (DEPO-PROVERA) 150 mg/mL Suspension ADM 1 ML IM Q 3 MONTHS 04/21/2020 Active Active Problems No known active problems Social History Tobacco Use Types Packs/Day Years Used Date Smoking Tobacco: Former Cigarettes Q uit: 12/18/2018 Comments Unknown Sex and Gender Information Value Date Recorded Sex Assigned at Not on file Legal Sex Female 3:42 PM CDT Gender Identity Not on file Sexual Orientation Not on file Last Filed Vital Signs Vital Sign Reading Time Taken Comments Blood Pressure 99/78 06/17/2020 10:36 AM CDT Pulse - - Temperature - - Respiratory Rate - - Oxygen Saturation - - Inhaled Oxygen Concentration - - Weight 59.4 kg (131 lb) 06/17/2020 10:36 AM CDT Height 160 cm (5' 3) 06/17/2020 10:36 AM CDT Body Mass Index 23.21 06/17/2020 10:36 AM CDT Plan of Treatment Health Maintenance Due Date Last Done Comments HPV VACCINES (1 - 3-dose series) 2012 DTAP/TDAP/TD VACCINES (1 - Tdap) 2016 HEPATITIS B VACCINES (1 of 3 - 19+ 3-dose series) 12/15 CERVICAL CANCER SCREENING 2018 HPV/Cotest (21-29) 2018 PAP SMEAR 2018 INFLUENZA VACCINE (#1) 2025 Insurance [facility] MEDICAID Care Teams Blood Bank Coordinator Relationship Specialty Start Date End Date Zoë Nino MD [address] [place] [phone] PCP - General Obstetrics and Gynecology 07/11/20
[2025-06-29 10:02] VITALS: BP 111/83; PULSE 55; RESP 19; TEMP 36.7; O2SAT 100
[2025-06-29 10:20] LABS: Hematocrit 33.5 % (37.0-47.0); Hemoglobin 11.4 g/dL (12.0-15.0); Immature Granulocyte Percent A 0.5 % (0-0.5); Lymphocytes Absolute Auto 1.57 K/mm3 (0.9-3.2); Mean Corpuscular HGB Conc 34.0 g/dl (32-36); Mean Corpuscular Hemoglobin 23.5 pg (26-34); Mean Corpuscular Volume 69.1 fl (80-100); Nucleated Red Blood Cells Absolute Auto 0.000 K/mm3 (0.0-0.012); Nucleated Red Blood Cells Perc 0.0 % (0.0-0.2); Platelet Count Result 246 k/mm3 (150-375); Red Blood Count 4.85 M/mm3 (4.2-5.4); White Blood Count 12.7 K/mm3 (4.5-10.0)
--- OUTSIDE RECORDS SUMMARY | 2025-06-29 10:30 | XMS_ITS | Encounter Summary ---
Author Organization [facility] Address [address] [place] [address] Care Team Providers Care Inspector Insulation Name Role Phone Brenda Leach NP Primary Care Provider [phone] Ankur Torres MD Unavailable [phone] Reason for Visit * Auth/Cert (Routine) Specialty Diagnoses / Procedures Referred By Jelani sarah Referred To Contact Diagnoses Abdominal pain Nausea and vomiting, unspecified vomiting type Anemia, unspecified type Abdominal pain [R10.9] Nausea and vomiting, unspecified vomiting type [R11.2] Anemia, unspecified type [D64.9] Procedures [place] ESOPHAGOGASTRODUODENOSCOPY TRANSORAL DIAGNOSTIC [place] COLONOSCOPY,DIAGNOSTIC ESOPHAGOGASTRODUODENOSCOPY COLONOSCOPY Referral ID Status Reason Start Date Expiration Date Visits Re quested Visits Authorized [id number] 1 1 Encounter Details Date Type Department Care Team (Late st Contact Info) Description 07/26/2024 2:00 PM CDT Hospital Encounter [facility] [address] [place] [address] Georgi Knight MD [address] [place] [address] [phone] Social History Tobacco Use Types Packs/Day Years Used Date Smoking Tobacco: Never Smokeless Tobacco: Never Alcohol Use Standard Drinks/Week Comments Not Currently 0 (1 standard drink = 0.6 oz pur e alcohol) [facility] Utilities Answer Date Recorded In the past 12 months has e [employer], [employer], oil, or water [employer] threatened to shut off services in your [...] often do you attend chur ch or confucianism services? Never 01/24/2025 Do you belong to any clubs o r organizations such as judaism groups, unions, fraternal or athletic groups, or [...] and heating? Not hard at all 01/24/2025 [facility] [place] of Occupat ional Health - Occupational Stress [...] place to sleep or slept in a penitentiary (including now)? No 03/21/2024 [place] Depression Scale Answer Date Recorded [place] Depression Scale Total 10 08/08/2023 The thought [...] any time in the past 12 m [facility], were you homeless or living in a penitentiary (including now)? No 01/24/2025 Personal Safety Answer [...] alcohol or smoking 12 hours before surgery Maceo teeth but do not swallow Shower or [...] of procedure: none. 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
--- OUTSIDE RECORDS SUMMARY | 2025-06-29 10:30 | XMS_ITS | Clinical Summary ---
Author Organization [facility] Address [address] [place] [address] Phone Care Team Providers Care Tub Puller Name Role Phone Zoë Nino MD Primary Care Provider [phone] Allergies No known active allergies Medications medroxyPROGESTER [...] SMEAR 2018 INFLUENZA VACCINE (#1) 2025 Insurance [facility] MEDICAID Care Teams Tub Puller Relationship Specialty Start Date End Date Zoë Nino MD [address] [place] [phone] PCP - General Obstetrics and Gynecology 07/11/20
--- OUTSIDE RECORDS SUMMARY | 2025-06-29 10:30 | XMS_ITS | Clinical Summary ---
Author Organization [facility] Address [address] [place] [address] Care Team Providers Care Production Internship Name Role Phone Ankur Torres MD Unavailable [phone] Radha Aguilera NP Primary Care Provider [phone] Georgi Knight MD Unavailable Allergies No known [...] [facility]: (no show) Pap collected at [facility] on 03/21/24: NILM, cotest due in 1 year per [facility] - needs Gardasil Vaccine: completed 2008 NG/CT/Trich: Ordered HIV/HepC/RPR: Ordered Contraception reviewed. Patient plans: IUD removal today, Depo injection today (UPT neg in clinic) In basket message to establish care with [facility]. Diet and exercise discussed. Calcium and vitamin [...] done. 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..] week 01/24/2025 How often do you attend [facility] or synagogue services? Never 01/24/2025 Do you belong to any clubs o r organizations such as christian groups, unions, fraternal or athletic groups, or [...] and heating? Not hard at all 01/24/2025 [facility] - Occupational Stress [...] place to sleep or slept in a chcf (including now)? No 03/21/2024 [place] Depression Scale Answer Date Recorded [place] Depression Scale Total 10 08/08/2023 The thought [...] were you homeless or living in a chcf (including now)? No 01/24/2025 Personal Safety Answer [...] Bl[address]le[address] rd, Sonia patel MD Complications:None Delivery Location:[facility] ([facility]LD) Comments G1: IOL at 36w5d [...] * eGFR (05/06/2025 11:09 AM CDT) Pathologist [facility] eGFR >90 >=60 mL/min/1. 73 m2 Comment: [...] MD LAB BLOOD ORDERABLES [facility] [address] [facility] [place] [address] * (ABNORMAL) Differential, auto (05/06/2025 11:09 AM CDT) Pathologist [facility] Neutrophil abs 9.44(H) 1.50 - 6.50 K/cumm Imm gran abs 0.03 0.00 - 0.10 K/cumm [facility] Lymphocyte abs 1.25 0.80 - 3.30 K/cumm [facility] Monocyte abs 0.48 0.20 - 0.80 K/cumm [facility] Eosinophil abs 0.00 0.00 - 0.50 K/cumm [facility] Basophil abs 0.01 0.00 - 0.10 K/cumm [facility] Neutrophil pct 84.1 % [facility] Comment: Interpretive Data Percent cell count reference ranges are not reported, since discordance with absolute values may lead to misinterpretation of CBC data. Current Interpretive Data was last revised on 2018. Imm gran pct 0.3 % [facility] Comment: Interpretive Data Percent cell count reference ranges are not reported, since discordance with absolute values may lead to misinterpretation of CBC data. Current Interpretive Data was last revised on 2018. Lymphocyte pct 11.2 % [facility] Comment: Interpretive Data Percent cell count reference ranges are not reported, since discordance with absolute values may lead to misinterpretation of CBC data. Current Interpretive Data was last revised on 2018. Monocyte pct 4.3 % [facility] Comment: Interpretive Data Percent cell count reference ranges are not reported, since discordance with absolute values may lead to misinterpretation of CBC data. Current Interpretive Data was last revised on 2018. Eosinophil pct 0.0 % [facility] Comment: Interpretive Data Percent cell count reference ranges are not reported, since discordance with absolute values may lead to misinterpretation of CBC data. Current Interpretive Data was last revised on 2018. Basophil pct 0.1 % [facility] Comment: Interpretive Data Percent cell count reference ranges are not reported, since discordance with absolute values may lead to misinterpretation of CBC data. Current Interpretive Data was last revised on 2018. Blood 05/06/2025 11:0 9 AM CDT 05/06/2025 11:11 AM CDT us Lopez Rodríguez MD LAB BLOOD ORDERABLES Final Resul t [facility] [address] [facility] [place] [address] * (ABNORMAL) CBC with auto differential (05/06/2025 11:09 AM CDT) WBC 11.21(H) 3.80 - 9.90 K/cumm Hgb 11.9 11.9 - 15.5 g/dL [facility] Hct 34.6(L) 35.6 - 45.5 % [facility] Plt 243 150 - 400 K/cumm [facility] MPV 10.7 9.1 - 12.3 fL [facility] RBC 4.85 3.90 - 5.20 M/cumm [facility] MCV 71.3(L) 81.3 - 96.4 fL [facility] MCH 24.5(L) 27.1 - 33.3 pg [facility] MCHC 34.4 32.3 - 35.7 g/dL [facility] RDW CV 13.7 11.1 - 14.9 % [facility] RDW SD 34.6(L) 35.7 - 48.1 fL [facility] NRBC abs 0.00 0.00 - 0.01 K/cumm [facility] Blood Venous blood specimen / Unknown 05/06/2025 11:09 AM CDT 05/06/2025 11:11 AM CDT Lopez Rodríguez MD LAB BLOOD ORDERABLES Final Resul t Performing Organization Address [facility] Co de Phone Number [address] [place] [address] * Lipase (05/06/2025 11:09 AM CDT) [facility] Lipase 65 10 - 99 Units/L Blood 05/06/2025 11:0 9 AM CDT 05/06/2025 11:11 AM CDT Lopez Rodríguez MD LAB BLOOD ORDERABLES Final Resul t Performing Organization Address [facility] Co de Phone Number [address] [place] [address] * (ABNORMAL) Comprehensive metabolic panel (05/06/2025 11:09 AM CDT) [facility] Sodium 139 135 - 145 mmol/L Potassium, pl 3.7 3.3 - 4.9 mmol/L [facility] Comment:Hemolyzed; Potassium value may be falsely elevated by as much as 1.0 mmol/L. Suggest redraw and reanalysis. Chloride 103 97 - 110 mmol/L [facility] CO2 22 22 - 32 mmol/L [facility] Anion gap 14 2 - 15 mmol/L [facility] BUN 10 6 - 25 mg/dL [facility] Creatinine 0.65 0.60 - 1.10 mg/dL [facility] Glucose 127 70 - 199 mg/dL [facility] Comment: Interpretive Data Fasting glucose >/= [...] 2022. Calcium 9.8 8.5 - 10.3 mg/dL [facility] Bilirubin, total 1.6(H) 0.1 - 1.2 mg/dL [facility] Protein, pl 7.4 6.5 - 8.5 g/dL [facility] Albumin 4.6 3.5 - 5.0 g/dL [facility] Alk phos 65 40 - 130 Units/L [facility] ALT 19 7 - 45 Units/L [facility] AST 22 10 - 45 Units/L [facility] Comment:Hemolyzed; result ma y be falsely elevated Blood Venous blood specimen / Unknown 05/06/2025 11:09 AM CDT 05/06/2025 11:11 AM CDT us Lopez Rodríguez MD LAB BLOOD ORDERABLES Final Resul t [facility] [address] [facility] Department [place] [address] * POCT hCG, urine (05/06/2025 [...] ur Yellow Yellow Clarity, ur Cloudy(A) Clear [facility] Specific gravity, ur 1.033(H) 1.003 - 1.030 [facility] pH, urine 6.0 [facility] Comment: Interpretive Data U rine pH is affected by diet, medications, systemic acid-base disturbances, and renal tubular function. pH may affect urinary stone formation. For example, urine pH below 6.0 may help reduce the tendency for calcium phosphate stones and pH greater than 6.0 may reduce the tendency for uric acid stone formation. Source: [facility] Current Interpretive Data was last revised on 2017 Protein, ur ql 1+(A) Negative [facility] Glucose, ur ql Negative Negative [facility] Ketones, ur 1+(A) Negative [facility] Bilirubin, ur Negative Negative [facility] Blood, ur Negative Negative [facility] Urobilinogen, ur <2.0 <2.0 mg/dL [facility] Nitrite, ur Negative Negative [facility] Leukocyte esterase, ur Negative Negative [facility] UA reflex comment Reflex to microscopic UA will be performed. [facility] Urine 05/06/2025 11:0 5 AM CDT 05/06/2025 11:08 AM CDT Lopez Rodríguez MD LAB MICROBIOLOGY - GENERAL ORDER [place] Final Result [facility] [address] [facility] [place] [address] * (ABNORMAL) Urinalysis, microscopic only (05/06/2025 11:05 AM CDT) WBC, ur 0-5 0 - 5 /HPF RBC, ur 0-2 0 - 2 /HPF [facility] Epithelial cells, squamous, ur 6-10(A) 0 - 5 /HPF [facility] Comment:Suggestive of contam ination. Consider recollection by clean catch. Mucous, ur Present(A) [facility] Uric acid crystals, ur 2+(A) [facility] Culture Reflex Comment Reflex conditions for urine culture (WBC >10) not met. [facility] Urine 05/06/2025 11:0 5 AM CDT 05/06/2025 11:08 AM CDT us Lopez Rodríguez MD LAB URINE ORDERABLES Final Resul t [facility] [address] [facility] [place] [address] * CT Abdomen Pelvis W Contrast (05/05/2025 [...] Wale Guerra M.D. AT T: Report ID: [id number] Reading Location: [place] [address] Procedure Note Wale Guerra MD - 05/05/2025 [...] Wale Guerra M.D. AT T: Report ID: [id number] Reading Location: [place] [address] PROCEDURES Final Resul t * POCT hCG, urine (05/05/2025 12:15 PM CDT) [facility] HCG, ur, POC Negative Negative Lot Number [id number] QC Backgroud Clear Acceptable QC Control Line Acceptable Urine 05/05/2025 12:1 5 PM CDT Renuka DIAZ POINT OF CARE TEST ORD ERABLES Final Result * N. gonorrhoeae/C. trachomatis Amplification Vaginal (05/05/2025 11:58 AM CDT) [facility] C. trachomatis Not Detected Not Detected N. gonorrhoeae Not Detected Not Detected [facility] Comment: Interpretive Data This assay detects Chlamydia trachomatis and Neisseria gonorrhoeae by nucleic acid amplification testing (NAAT). This assay has been cleared by the [place] Food and Drug administration. The performance characteristics of this test have been verified by the [facility]. The performance characteristics of this test have not been evaluated in individuals less than 14 years of age. Current Interpretive Data last revised 2023. Vaginal (None) 05/05/2025 11 :58 AM CDT 05/05/2025 12:03 PM CDT Renuka DIAZ LAB MICROBIOLOGY - GEN ERAL ORDERABLES Final Result [facility] [address] [facility] [place] [address] * (ABNORMAL) Vaginitis panel Vaginal (05/05/2025 11:58 AM CDT) [facility] Bacterial Vaginosis Not Detected Not Detected Comment:A negative result do es not preclude a possible infection. Results should be considered in conjunction with clinical presentation to determine the disease status. Shayy group Detected(A) Not Detected [facility] Comment:Shayy species can be present as commensal organisms in women; results should be considered in conjunction with clinical presentation to determine the disease status. Shayy glabrata/ krusei Not Detected Not Detected [facility] Trichomonas DNA Not Detected Not Detected [facility] Vaginal 05/05/2025 11:5 8 AM CDT [...] test have been verified by the [facility]. The Cepheid Xpert Xpress MVP test [...] test have been verified by the [facility]. Renuka DIAZ LAB MICROBIOLOGY - GEN ERAL ORDERABLES Final Result [facility] [address] [facility] Department of Laboratories [place], [place] [id number] * eGFR (05/05/2025 11:58 AM CDT) Pathologist [facility] eGFR >90 >=60 mL/min/1. 73 m2 Comment: [...] DIAZ LAB BLOOD ORDERABLES F inal Result [facility] [address] [facility] Department [place] [address] * (ABNORMAL) Differential, auto (05/05/2025 11:58 AM CDT) Neutrophil abs 6.73(H) 1.50 - 6.50 K/cumm Imm gran abs 0.03 0.00 - 0.10 K/cumm [facility] Lymphocyte abs 1.83 0.80 - 3.30 K/cumm [facility] Monocyte abs 0.47 0.20 - 0.80 K/cumm [facility] Eosinophil abs 0.37 0.00 - 0.50 K/cumm [facility] Basophil abs 0.03 0.00 - 0.10 K/cumm [facility] Neutrophil pct 71.2 % [facility] Comment: Interpretive Data Percent cell count reference ranges are not reported, since discordance with absolute values may lead to misinterpretation of CBC data. Current Interpretive Data was last revised on 2018. Imm gran pct 0.3 % [facility] Comment: Interpretive Data Percent cell count reference ranges are not reported, since discordance with absolute values may lead to misinterpretation of CBC data. Current Interpretive Data was last revised on 2018. Lymphocyte pct 19.3 % [facility] Comment: Interpretive Data Percent cell count reference ranges are not reported, since discordance with absolute values may lead to misinterpretation of CBC data. Current Interpretive Data was last revised on 2018. Monocyte pct 5.0 % [facility] Comment: Interpretive Data Percent cell count reference ranges are not reported, since discordance with absolute values may lead to misinterpretation of CBC data. Current Interpretive Data was last revised on 2018. Eosinophil pct 3.9 % [facility] Comment: Interpretive Data Percent cell count reference ranges are not reported, since discordance with absolute values may lead to misinterpretation of CBC data. Current Interpretive Data was last revised on 2018. Basophil pct 0.3 % [facility] Comment: Interpretive Data Percent cell count reference ranges are not reported, since discordance with absolute values may lead to misinterpretation of CBC data. Current Interpretive Data was last revised on 2018. Blood 05/05/2025 11:5 8 AM CDT 05/05/2025 12:03 PM CDT Renuka DIAZ LAB BLOOD ORDERABLES F inal Result [facility] [address] [facility] [place] [address] * (ABNORMAL) Urinalysis reflex to microscopic and culture Urine (05/05/2025 11:58 AM CDT) Color, ur Yellow Yellow Clarity, ur Clear Clear [facility] Specific gravity, ur 1.024 1.003 - 1.030 [facility] pH, urine 7.0 [facility] Comment: Interpretive Data U rine pH is affected by diet, medications, systemic acid-base disturbances, and renal tubular function. pH may affect urinary stone formation. For example, urine pH below 6.0 may help reduce the tendency for calcium phosphate stones and pH greater than 6.0 may reduce the tendency for uric acid stone formation. Source: [facility] Current Interpretive Data was last revised on 2017 Protein, ur ql Negative Negative [facility] Glucose, ur ql Negative Negative [facility] Ketones, ur 2+(A) Negative [facility] Bilirubin, ur Negative Negative [facility] Blood, ur Negative Negative [facility] Urobilinogen, ur <2.0 <2.0 mg/dL [facility] Nitrite, ur Negative Negative [facility] Leukocyte esterase, ur Negative Negative [facility] UA reflex comment Reflex conditions for microscopic UA and culture not met. [facility] Urine 05/05/2025 11:5 8 AM CDT 05/05/2025 12:03 PM CDT Renuka DIAZ LAB MICROBIOLOGY - GEN ERAL ORDERABLES Final Result Performing Organization Address [facility]/ZIP Co de Phone Number [address] [place] [address] * (ABNORMAL) CBC with auto differential (05/05/2025 11:58 AM CDT) [facility] WBC 9.46 3.80 - 9.90 K/cumm Hgb 12.0 11.9 - 15.5 g/dL [facility] Hct 36.1 35.6 - 45.5 % [facility] Plt 245 150 - 400 K/cumm [facility] MPV 10.3 9.1 - 12.3 fL [facility] RBC 4.94 3.90 - 5.20 M/cumm [facility] MCV 73.1(L) 81.3 - 96.4 fL [facility] MCH 24.3(L) 27.1 - 33.3 pg [facility] MCHC 33.2 32.3 - 35.7 g/dL [facility] RDW CV 13.9 11.1 - 14.9 % [facility] RDW SD 36.3 35.7 - 48.1 fL [facility] NRBC abs 0.00 0.00 - 0.01 K/cumm [facility] Blood Venous blood specimen / Unknown 05/05/2025 11:58 AM CDT 05/05/2025 12:03 PM CDT Renuka DIAZ LAB BLOOD ORDERABLES F inal Result Performing Organization Address City/[facility]/ZIP Co de Phone Number [address] [place] [address] * ABO/Rh (05/05/2025 11:58 AM CDT) [facility] ABO/Rh A Positive Blood 05/05/2025 11:5 8 AM CDT 05/05/2025 12:03 PM CDT Narrative [facility] 05/05/2025 12:37 PM CDT Has the patient had Daratumumab or Isatuximab in the past 6 months?->Unknown Renuka DIAZ LAB BLOOD BANK TEST OR DERABLES Final Result Performing Organization Address [facility] Co de Phone Number [address] [address] * Antibody screen (05/05/2025 11:58 AM CDT) [facility] Tiffany, indirect, Gel Interpretation Negative ABSC Blood 05/05/2025 11:5 8 AM CDT 05/05/2025 12:03 PM CDT Narrative [facility] 05/05/2025 12:37 PM CDT Has the patient had Daratumumab or Isatuximab in the past 6 months?->Unknown Renuka DIAZ LAB BLOOD BANK TEST OR DERABLES Final Result Performing Organization Address [facility] de Phone Number [address] [address] * hCG, blood, quantitative (05/05/2025 11:58 AM CDT) [facility] hCG, quant <5.0 0.0 - 5.0 IUnits/L [...] DIAZ LAB BLOOD ORDERABLES F inal Result [place] [address] [place] [address] * Lipase (05/05/2025 11:58 AM CDT) [facility] Lipase 17 10 - 99 Units/L Blood Venous blood specimen / Unknown 05/05/2025 11:58 AM CDT 05/05/2025 12:03 PM CDT Renuka DIAZ LAB BLOOD ORDERABLES F inal Result Performing Organization Address City/[facility] Co de Phone Number [address] [address] * (ABNORMAL) Comprehensive metabolic panel (05/05/2025 11:58 AM CDT) [facility] Sodium 140 135 - 145 mmol/L Potassium, pl 3.6 3.3 - 4.9 mmol/L [facility] Chloride 105 97 - 110 mmol/L [facility] CO2 24 22 - 32 mmol/L [facility] Anion gap 11 2 - 15 mmol/L [facility] BUN 7 6 - 25 mg/dL [facility] Creatinine 0.62 0.60 - 1.10 mg/dL [facility] Glucose 85 70 - 199 mg/dL [facility] Comment: Interpretive Data Fasting glucose >/= [...] 2022. Calcium 9.1 8.5 - 10.3 mg/dL [facility] Bilirubin, total 1.3(H) 0.1 - 1.2 mg/dL [facility] Protein, pl 6.7 6.5 - 8.5 g/dL [facility] Albumin 4.1 3.5 - 5.0 g/dL [facility] Alk phos 61 40 - 130 Units/L [facility] ALT 18 7 - 45 Units/L [facility] AST 19 10 - 45 Units/L [facility] Blood 05/05/2025 11:5 8 AM CDT 05/05/2025 12:03 PM CDT Renuka DIAZ LAB BLOOD ORDERABLES F inal Result [facility] [address] [facility] [place] [address] * High Risk HPV DNA Detection with Genotyping (Molecular component) (03/30/2024 3:24 PM CDT) Pathologist [facility] HPV HR 16 Not Detected Not Detected [facility] HPV HR 18 Not Detected Not Detected [facility] HPV HR Non 16/18 Not Detected Not Detected [facility] Comment: Interpretive Data Nucleic acid amplification for [...] this test have been verified by the [facility] Molecular Infectious Disease laboratory. Correlate with separately reported cytology results, as applicable. 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 Co de Phone Number [facility] Department [place] [address] [facility] * Hepatitis C antibody (03/16/2023 5:42 PM CDT) Hep C Ab Nonreactive Nonreactive [facility] Comment:Antibodies to HCV no t detected. Does NOT exclude the possibility of recent exposure to HCV. Current interpretive data was last revised on 22 Blood 03/16/2023 5:42 PM CDT 03/16/2023 5:56 PM CDT Leslie Maxwell NP LAB MICROBIOLOGY - GENERAL ORDERABLES Final Result Performing Organization Address [facility] Co de Phone Number [facility] Department [place] [address] from Last 3 Months or Most Recently Relevant to Health Maintenance Insurance [facility] Advance Directives For more information, please contact: [phone] * Full Code (Latest Code Status on [...] in case of cardiopulmonary arrest Care Teams Production Internship Relationship Specialty Start Date End Date Radha Aguilera NP [address] [place] [id number] PCP - General Internal Medicine 01/02/25 Ankur Torres MD [address] [place] [id number] Consulting Physician General Surgery 12/23/23 Georgi Knight MD [facility] [address] [address] Consulting Physician Gastroenterology 01/24/25
--- OUTSIDE RECORDS SUMMARY | 2025-06-29 10:30 | XMS_ITS | Clinical Summary ---
Author Organization [facility] [employer] Address [address] [place] [address] Care Team Providers Care Delivery Truck Driver Heavy Name Role Phone Radha Aguilera Primary Care Provider [phone] Source Comments [facility] [employer],non-owned Affiliates and Associated Physician Practices is amultiple site organization consisting of ambulatory clinics and hospital sitesin [place], [place], [place] and [place]. This disclosure is being madepursuant to the Care Everywhere program and may not contain all information available regarding this patient. Last updated 18.[facility] [employer] Allergies No known active allergies Medications * [...] CDT - 03/30/2025 11:25 AM CDT Emergency [facility]PART[facility] [address] [place] [phone] Epigastric pain (Primary Dx) Discharge Disposition: Left [...] 4.0 - 10.7 x10E9/L 03/30/2025 10:21 AM [facility] RBC Count 5.45(H) 3.90 - 5.20 x10E12/L 03/30/2025 10:21 AM [facility] Hemoglobin 13.0 11.9 - 15.8 g/dL 03/30/2025 10:21 AM [facility] Hematocrit 37.3 34.8 - 46.1 % 03/30/2025 10:21 AM [facility] MCV 68.4(L) 80.0 - 98.0 fL 03/30/2025 10:21 AM [facility] MCH 23.9(L) 26.7 - 33.6 pg 03/30/2025 10:21 AM [facility] MCHC 34.9 31.7 - 36.3 g/dL 03/30/2025 10:21 AM [facility] RDW-CV 13.4 11.3 - 14.8 % 03/30/2025 10:21 AM [facility] Platelet Count 242 150 - 420 x10E9/L 03/30/2025 10:21 AM [facility] MPV 10.4 7.8 - 11.4 fL 03/30/2025 10:21 AM [facility] Neutrophil % 78.0(H) 41.0 - 74.0 % 03/30/2025 10:21 AM [facility] Lymphocyte % 16.6(L) 17.0 - 47.0 % 03/30/2025 10:21 AM [facility] Monocyte % 4.8 3.0 - 11.0 % 03/30/2025 10:21 AM [facility] Eosinophil % 0.0 0.0 - 7.0 % 03/30/2025 10:21 AM [facility] Basophil % 0.2 0.0 - 1.6 % 03/30/2025 10:21 AM [facility] Immature Granulocytes % 0.4 0.0 - 1.0 % 03/30/2025 10:21 AM [facility] Neutrophil Absolute 7.65(H) 1.60 - 7.50 x10E9/L 03/30/2025 10:21 AM [facility] Lymphocyte Absolute 1.63 1.00 - 4.40 x10E9/L 03/30/2025 10:21 AM [facility] Monocyte Absolute 0.47 0.15 - 1.00 x10E9/L 03/30/2025 10:21 AM [facility] Eosinophil Absolute 0.00 0.00 - 0.60 x10E9/L 03/30/2025 10:21 AM [facility] Basophil Absolute 0.02 0.00 - 0.13 x10E9/L 03/30/2025 10:21 AM [facility] Blood BLOOD SPECIMEN / Unknown Venipuncture / Unknown 03/30/2025 9:44 AM CDT 03/30/2025 9:56 AM T us Blair Raymond MD LAB - HEMATOLOGY ORDERABLES F inal Result [facility] [address] [place] [phone], [facility] [phone] * (ABNORMAL) COMPREHENSIVE METABOLIC PANEL (03/30/2025 9:44 AM CDT) BUN 12 7 - 26 mg/dL 03/30/2025 10:30 AM [facility] Creatinine 0.64 0.56 - 0.96 mg/dL 03/30/2025 10:30 AM [facility] Sodium 140 136 - 145 mmol/L 03/30/2025 10:30 AM [facility] Potassium 3.7 3.5 - 4.5 mmol/L 03/30/2025 10:30 AM [facility] Chloride 107 98 - 107 mmol/L 03/30/2025 10:30 AM [facility] CO2 22 22 - 29 mmol/L 03/30/2025 10:30 AM [facility] Glucose 97 70 - 99 mg/dL 03/30/2025 10:30 AM [facility] Calcium 9.6 8.4 - 10.2 mg/dL 03/30/2025 10:30 AM [facility] Protein Total 7.9 6.0 - 8.3 g/dL 03/30/2025 10:30 AM [facility] Albumin 4.6 3.4 - 5.0 g/dL 03/30/2025 10:30 AM [facility] Bilirubin Total 2.1(H) 0.2 - 1.2 mg/dL 03/30/2025 10:30 AM [facility] Alkaline Phosphatase 57 40 - 150 U/L 03/30/2025 10:30 AM [facility] ALT 19 5 - 55 U/L 03/30/2025 10:30 AM [facility] AST 16 5 - 34 U/L 03/30/2025 10:30 AM [facility] Anion Gap 11 6 - 16 03/30/2025 10:30 AM [facility] BUN/Creatinine Ratio 19 7 - 23 03/30/2025 10:30 AM [facility] Osmolality Calculated 290 275 - 295 mOsm/kg 03/30/2025 10:30 AM [facility] Albumin/Globulin Ratio 1.4 1.1 - 2.3 03/30/2025 10:30 AM [facility] eGFR by CKD-EPI >90 >=90 mL/min/1.7 3 m2 03/30/2025 10:30 AM [facility] Blood BLOOD SPECIMEN / Unknown Venipuncture / Unknown 03/30/2025 9:44 AM CDT 03/30/2025 9:56 AM CDT Blair Raymond MD LAB - CHEMISTRY ORDERABLES Fi nal Result Performing Organization Address [facility] Co de Phone Number [address] [phone], [facility] [phone] * HCG BETA BLOOD QUANTITATIVE (03/30/2025 9:44 AM CDT) [facility] Beta-hCG Total Quantitative <3 mIU/mL 03/30/2025 10:38 AM [facility] Comment: HCG Numeric Result Interpretation: Non- [...] ORDERABLES Fi nal Result Performing Organization Address City/[facility]/ZIP Co de Phone Number [address] [address], [place] [phone] * LIPASE BLOOD (03/30/2025 9:44 AM CDT) Lipase 8 8 - 78 U/L 03/30/2025 10:30 AM CDT [facility] Blood BLOOD SPECIMEN / Unknown Venipuncture / Unknown 03/30/2025 9:44 AM CDT 03/30/2025 9:56 AM CDT Narrative [facility] - 03/30/2025 10:30 AM CDT Lipase results from the [place] analyzer may not be comparable with other methodologies. us Blair Raymond MD LAB - CHEMISTRY ORDERABLES nal Result [facility] [address] [place] [address], [place] [phone] from Last [address] [facility] Advance Directives * Full Code (Latest Code Status on File) Date Activated Date Inactivated Comments 09/10/2019 7:45 PM 09/13/2019 1:16 PM * Full Code Date Activated Date Inactivated Comments 08/30/2019 12:09 PM 09/03/2019 7:44 PM * Full Code Date Activated Date Inactivated Comments 02/09/2017 2:13 PM 02/10/2017 3:09 PM Care Teams Delivery Truck Driver Heavy Relationship Specialty Start Date End Date Radha Aguilera [address] [place] [phone] PCP - General 03/30/25
--- OUTSIDE RECORDS SUMMARY | 2025-06-29 10:30 | XMS_ITS | Clinical Summary ---
Author Organization [facility] Address [address] [place] [address] Care Team Providers Care Psychiatric Cns Name Role Phone None, Provider MD Primary [...] Sex Assigned at Female 12/31/2024 8:42 AM SCREEN PRINTING MACHINE OPERATOR HELPER Legal Sex Female 7:19 PM SCREEN PRINTING MACHINE OPERATOR HELPER Gender Identity Not on file Sexual Orientation Not on file Last Filed Vital Signs Vital Sign Reading Time Taken Comments Blood Pressure 119/81 12/31/2024 8:31 AM SCREEN PRINTING MACHINE OPERATOR HELPER Pulse 85 12/31/2024 8:31 AM SCREEN PRINTING MACHINE OPERATOR HELPER Temperature 37 C (98.6 F) 12/31/2024 8:31 AM SCREEN PRINTING MACHINE OPERATOR HELPER Respiratory Rate 16 12/31/2024 8:31 AM SCREEN PRINTING MACHINE OPERATOR HELPER Oxygen Saturation 100% 12/31/2024 8:31 AM SCREEN PRINTING MACHINE OPERATOR HELPER Inhaled Oxygen Concentration - - Weight 49.9 kg (110 lb) 12/31/2024 8:31 AM SCREEN PRINTING MACHINE OPERATOR HELPER Height 162.6 cm (5' 4) 12/31/2024 8:31 AM SCREEN PRINTING MACHINE OPERATOR HELPER Body Mass Index 18.88 12/31/2024 8:31 AM SCREEN PRINTING MACHINE OPERATOR HELPER Plan of Treatment Health Maintenance Due Date [...] Self 1995 [address] [place] [address] [place] Care Teams Psychiatric Cns Relationship Specialty Start Date End Date None, Provider, PCP - General 11/05/20
--- OUTSIDE RECORDS SUMMARY | 2025-06-29 10:30 | XMS_ITS | Encounter Summary ---
Author Organization [facility] Address [address] [place] [address] Care Team Providers Care Marine Geologist Name Role Phone Zoë Nino MD Primary Care Provider Radha Aguilera Primary Care Provider [phone] Encounter Details Date Type Department Care Team (Late st Contact Info) Description 09/12/2019 Lab Requisition [facility] Care Pathology Lab [address] [place] [address] Jennifer Darby MD [address] [address] Illness, unspecified Social History Tobacco Use Types [...] CDT) Case Report Surgical Pathology Report Case: [id number] Authorizing Provider: Jennifer Darby MD Collected: 09/11/2019 10:00 AM Ordering Location: [facility] Lab Received: 09/12/2019 10:25 AM Pathologist: Dana Walton MD Specimen: Placenta 3rd Trimester 09/21/2019 12:58 PM INVOICING MACHINE OPERATOR [facility] PATHOLOGY LAB Final Diagnosis Placenta, 36 Weeks [...] recurrence between 10-25 percent. 09/21/2019 12:58 PM [facility] at [address] INVOICING MACHINE OPERATOR Clinical History The patient is a 23-year-old woman, , with a quintero complicated by growth restriction, oligohydramnios, and a decelerating heart rate detected at 36 weeks and 5 days of gestation. Following induction of labor, she delivered a baby girl weighing 1870 grams at with scores of 8 at 1 minute and 9 at 5 minutes. 09/21/2019 12:58 PM [facility] Gross Description Received in formalin [...] dark-red. No discrete lesions are grossly identified. Knockout Worker sections are submitted as follows: A1. Proximal umbilical cord and membranes A2. Distal umbilical cord and membranes A3-A6. Placenta DS/SES/met 09/21/2019 12:58 PM [facility] PATHOLOGY LAB AP Comment 6 H&E. Sections [...] scattered foamy macrophages. (SES) 09/21/2019 12:58 PM [facility] PATHOLOGY LAB Disclaimer The performance characteristics of all immunohistochemical and indirect immunofluorescence stains (if any) cited in this report were determined by the Histopathology Laboratory of [facility]. Some of these tests were developed by [...] has been rendered by member(s) of the [facility] Department of Pathology, Division of Pediatric and Pathology located at [facility] ([address] [place] [address]). 09/21/2019 12:58 PM [facility] PATHOLOGY LAB Embedded Images 09/21/2019 12:58 PM [facility] PATHOLOGY LAB Pathology/Cytolo gy ENTIRE PLACENTA / Unknown 09/11/2019 10:00 AM CDT 09/12/2019 10:25 AM CDT us Jennifer Darby MD LAB - PATHOLOGY/CYTOLOGY OR DERABLES Final Result [facility] PATHOLOGY LAB [address] [facility] [place], [place] [id number] [place] [address] documented in this encounter Visit Diagnoses Diagnosis Illness, unspecified documented in this encounter Care Teams Marine Geologist Relationship Specialty Start Date End Date Zoë Nino MD [address] [place] [phone] PCP - General Obstetrics and Gynecology 08/30/1901/14 Radha Aguilera [address] [place] [phone] PCP - General 03/30/25 documented as of this encounter
[2025-06-29 10:36] LABS: Add Urine Microscopic? YES; Appearance Urine Cloudy (Clear); Glucose Urine UA Negative (Negative); Leukocyte Esterase Ur Negative LEU/UL (Negative); Nitrate Urine Negative (Negative); Specific Grav Ur 1.034 (1.001-1.035)
[2025-06-29 10:51] LABS: BEDSIDEPREGUCG Negative (Negative)
[2025-06-29 10:59] LABS: Microcytosis 1+ (NORMAL)
[2025-06-29 11:00] LABS: Target Cells 1+
[2025-06-29 11:01] LABS: Schistocytes None Seen
[2025-06-29 11:07] VITALS: BP 107/60; PULSE 81; RESP 16; O2SAT 100
[2025-06-29] MEDS: KETOROLAC 30 MG/ML VIAL (*BKC) IV PUSH (11:09)
[2025-06-29] MEDS: SODIUM CHLORIDE 0.9% IV 1,000 ML 999 ML IV CONT (11:09)
[2025-06-29] MEDS: ONDANSETRON INJ 4 MG/2 ML VIAL IV PUSH ×2 (11:09→14:53)
[2025-06-29 11:39] LABS: Alanine Aminotransferase 16 U/L (6-35); Albumin Level 4.6 g/dL (3.5-5.1); Alkaline Phosphatase 61 U/L (38-126); Anion Gap 11 mmol/L (4-12); Aspartate Amino Transferase 32 U/L (14-36); Bilirubin,Total 1.5 mg/dL (0.2-1.3); Blood Urea Nitrogen 8 mg/dL (7-17); Calcium 9.9 mg/dL (8.4-10.2); Carbon Dioxide 24 mmol/L (22-30); Chloride 101 mmol/L (98-107); Estimated CRCL calculation 115 ml/min; Estimated Glomerular Filt Rate > 60; Glucose 111 mg/dL (65-110); Lipase 1067 U/L (23-300); Potassium 3.4 mmol/L (3.4-5.0); Sodium 136 mmol/L (137-145); Total Protein 7.8 g/dL (6.3-8.2)
--- NOTE | 2025-06-29 13:12 | ED.ABDPAIN ---
HPI - Abdominal Pain General Chief Complaint: Abdominal Pain Stated Complaint: NV, abd pain Time Seen by Provider: 06/29/25 10:21 Source: patient Mode of arrival: ambulatory Limitations: no limitations History of Present Illness HPI narrative: 29-year-old otherwise healthy here with a complains of upper abdominal pain associated with this some nausea and vomiting and diarrhea for last 2 days. History MD elicited complaint: abdominal pain Onset (ago): day(s) (2) Pain Consistency: constant Location: epigastric Severity: moderate Quality: aching Radiation: none Migration to: no migration Exacerbating factors: nothing Relieving factors: nothing Associated symptoms: denies other symptoms Related Data Allergies Allergy/AdvReac Type Severity Reaction Status Date / Time No Known Allergies Allergy Verified 05/08/25 08:57 Review of Systems Review of Systems: All systems reviewed & are unremarkable except as noted in HPI and below Constitutional: Constitutional: Reports no additional constitutional complaints Eyes: Eyes: Reports no additional eye complaints ENT: Reports system reviewed and no additional complaints, except as documented Cardiovascular: Cardiovascular: Reports no additional cardiovascular complaints Respiratory: Respiratory: Reports no additional respiratory complaints Gastrointestinal: Gastrointestinal: Reports as per HPI Musculoskeletal: Musculoskeletal: Reports no additional musculoskeletal complaints [facility] Past Medical History Medical History Healthy female adult Social History Social History Smoking status: Never smoker Substance use: current Exam Narrative: GENERAL: Well-appearing, well-nourished, and in no acute distress. HEAD: Normocephalic, atraumatic. EYES: PERRLA and EOMI. ENT: Nares clear, no rhinorrhea or epistaxis. Mucous membranes moist. NECK: Supple. CHEST: Clear to auscultation. No respiratory distress. HEART: Regular rate and rhythm. No murmur heard. Normal peripheral pulses. ABDOMEN: Soft, mild tenderness in the upper abdomen, nondistended, normal active bowel sounds. EXTREMITIES: Normal range of motion. No edema. SKIN: Warm, dry, no rash. NEURO: No focal deficits. Alert and oriented x3. PSYCH: Normal mood and affect. Course Course Emergency Course: Patient feeling slightly better informed about the lab work, CT findings. When agreeable with admission. I discussed with the hospitalist will accept the patient. Vital Signs Vital signs: Vital Signs Temperature 36.7 C 06/29/25 10:02 Pulse Rate 55 L 06/29/25 10:02 Respiratory Rate 19 06/29/25 10:02 Blood Pressure 111/83 06/29/25 10:02 Pulse Oximetry 100 06/29/25 10:02 Temperature 36.7 C 06/29/25 10:02 Pulse Rate 81 06/29/25 11:07 Respiratory Rate 16 06/29/25 11:07 Blood Pressure 107/60 06/29/25 11:07 Pulse Oximetry 100 06/29/25 11:07 MDM - Abdominal Pain Differential Diagnosis Differential diagnosis: Likely abdominal pain, acute appendicitis, gastroenteritis and small bowel obstruction Medical Records Attestation: I reviewed the patient's medical records. Lab Data Attestation: I reviewed the patient's lab results. 06/29/25 10:11 06/29/25 10:11 Labs: Lab Results 06/29/25 06/29/25 06/29/25 Range/Units 10:11 10:20 10:49 WBC 12.7 H (4.5-10.0) K/mm3 RBC 4.85 (4.2-5.4) M/mm3 Hgb 11.4 L (12.0-15.0) g/dL Hct 33.5 L (37.0-47.0) % MCV 69.1 L (80-100) fl MCH 23.5 L (26-34) pg MCHC 34.0 (32-36) g/dl RDW 13.2 (11.5-14.5) % Plt Count 246 (150-375) k/mm3 MPV 9.7 (7.4-10.4) fl Immature Gran % (Auto) 0.5 (0-0.5) % Neut % (Auto) 80.0 H (45.5-73.1) % Lymph % (Auto) 12.4 L (18.3-44.2) % Frontier % (Auto) 6.9 (2.6-8.5) % Eos % (Auto) 0.0 (0-4.4) % Baso % (Auto) 0.2 (0.2-1.2) % Lymph # (Auto) 1.57 (0.9-3.2) K/mm3 Frontier # (Auto) 0.9 H (0.1-0.6) K/mm3 Eos # (Auto) 0.0 (0-0.3) K/mm3 Baso # (Auto) 0.0 (0.0-0.1) K/mm3 Abs Immat Gran (auto) 0.06 H (0.00-0.031) K/mm3 Absolute Neuts (auto) 10.2 H (1.3-6.7) K/mm3 Absolute Nucleated RBC 0.000 (0.0-0.012) K/mm3 Band Neutrophils % Not Reportable Nucleated RBC % 0.0 (0.0-0.2) % Platelet Estimate Adequate (Adequate) Microcytosis 1+ (NORMAL) Target Cells 1+ Schistocytes None seen Sodium 136 L (137-145) mmol/L Potassium 3.4 (3.4-5.0) mmol/L Chloride 101 (98-107) mmol/L Carbon Dioxide 24 (22-30) mmol/L Anion Gap 11 (4-12) mmol/L BUN 8 (7-17) mg/dL Creatinine 0.61 L (0.7-1.0) mg/dL Estim Creat Clear Calc 115 ml/min Estimated GFR > 60 (59 - ) Glucose 111 H (65-110) mg/dL Calcium 9.9 (8.4-10.2) mg/dL Total Bilirubin 1.5 H (0.2-1.3) mg/dL AST 32 (14-36) U/L ALT 16 (6-35) U/L Alkaline Phosphatase 61 (38-126) U/L Total Protein 7.8 (6.3-8.2) g/dL Albumin 4.6 (3.5-5.1) g/dL Lipase 1067 H (23-300) U/L Urine Color Dark yellow (Yellow) Urine Appearance Cloudy H (Clear) Urine pH 6.0 (5.0-9.0) Ur Specific [place] 1.034 (1.001-1.035) Urine Protein 2+ H (Negative) mg/dL Urine Glucose (UA) Negative (Negative) mg/dL Urine Ketones 3+ H (Negative) mg/dL Ur Blood (Man) Negative (Negative) Urine Nitrate Negative (Negative) Urine Bilirubin Negative (Negative) Urine Urobilinogen 1.0 (<2.0) mg/dL Leukocyte Esterase Rfl Negative (Negative) SERGEY/UL Urine RBC 3-5 H (0-2) /hpf Urine WBC 0-5 (0-3) /hpf Ur Squamous Epith Cells Moderate (Few) /hpf Urine Bacteria Rare /hpf Urine Casts 3-5 POC Urine HCG, Qual Negative (Negative) Imaging Data Radiologist's impression: ITS Impressions Abdomen/Pelvis CT 06/29/25 12:37 IMPRESSION: 1. 3.5 similar right adnexal cyst. No acute intra-abdominal/pelvic process. Discharge Plan Discharge Clinical Impression: Upper abdominal pain Pancreatitis Qualifiers: Chronicity: acute Pancreatitis type: unspecified pancreatitis type Acute pancreatitis complication: no infection or necrosis Qualified Code(s): K85.90 - Acute pancreatitis without necrosis or infection, unspecified Patient Disposition: Still a Patient Condition: Stable Patient Language: Palestinian Prescriptions: No Action cephalexin 500 mg capsule 500 mg PO Q12H 7 Days Qty: 14 0RF pantoprazole 40 mg tablet,delayed release (DR/EC) 40 mg PO BID Qty: 28 0RF ondansetron 4 mg tablet,disintegrating 4 mg PO Q6H PRN (Reason: nausea and vomiting) Qty: 10 0RF potassium chloride [Klor-Con M20] 20 mEq tablet,ER particles/crystals 20 meq PO BID Qty: 10 0RF Follow-up/Referrals: PHYSICIAN NOT ON STAFF,NONSTAFF [Primary Care Provider] - Time of Disposition: 13:16
[2025-06-29 13:36] VITALS: BP 115/90; PULSE 77; RESP 16; O2SAT 100
[2025-06-29] MEDS: FAMOTIDINE 20 MG/2 ML VIAL IV PUSH ×2 (13:37→21:04)
[2025-06-29] MEDS: SODIUM CHLORIDE 0.9% IV 1,000 ML 125 ML IV CONT (13:37)
[2025-06-29] MEDS: MORPHINE SULFATE (*CRX) 2 MG/ML INJ IV PUSH (13:38)
--- NOTE | 2025-06-29 14:23 | P.HP_ITS ---
H&P: HPI History of Present Illness Date/Time: 06/29/25 14:23 Chief Complaint: Epigastric pain nausea vomiting Narrative: 29-year-old female history of H pylori presents the hospital with epigastric pain nausea vomiting and diarrhea x2 days. Patient denies ETOH use. Patient states that since January 2024 she has been struggling with nausea and vomiting. She has been seen multiple times by her PCP and in the emergency room. In January of 2024 she had her gallbladder removed without improvement her nausea vomiting pain. She states that since she has had her gallbladder removed she gets diarrhea when she is high fatty foods. Patient is stated that she has had a colonoscopy, and EGD with no clear cause of her nausea vomiting. She states that for H pylori she was told to take a proton pump inhibitor. She does not believe she was ever on antibiotics for it. Patient is unsure of some of her medical history. Patient denies fevers chills, hematuria or dark tardy or bloody stools. Patient presented to the emergency room on 05/08/[address] at that time showed focal enlargement of the pancreas with normal lipase. Lab work shows leukocytosis at 12.7, hemoglobin of 11.4, sodium of 136, total bili 1.5, lipase 1067, urine is dark cloudy negative for infection with 3-5 rbc's and moderate epithelial cells. CT abdomen pelvis today show cholecystectomy, with normal pancreas, normal appendix and 3.5 similar right adnexal cyst. Review of Systems Review of Systems: 12 systems were reviewed and are negativ e except for as per HPI. [facility] Past Medical History Medical History (Updated 06/29/25 @ 16:57 by Letty Bey APRN) H pylori ulcer Surgical History Surgical History (Updated 06/29/25 @ 14:37 by Letty Bey APRN) Hx of cholecystectomy Social History Social History Smoking status: Never smoker Alcohol intake: never Substance use: current Substance use type: marijuana Last use: 06/26/25 Lack of Transportation: YES Lack of Food: Never True Current Housing: I Have Housing Concerned About Future Housing: No Difficulty Paying Gas/Electric Bills: No Difficulty Paying for Meds: No Currently Unemployed: YES Education: High School Diploma/GED Difficulty w/ Childcare or Family Care: No Spiritual care concerns: No Meds Home Medications and Allergies Home Medications ?Medication ?Instructions ?Recorded ?Confirmed ?Type ondansetron 4 mg disintegrating 4 mg PO Q6H PRN nausea and 05/07/25 06/29/25 Rx tablet vomiting #10 tabs pantoprazole 40 mg tablet,delayed 40 mg PO BID #28 tabs 05/07/25 06/29/25 Rx release ergocalciferol (vitamin D2) 1,250 1,250 mcg PO WEEKLY 06/29/25 06/29/25 History mcg (50,000 unit) capsule Allergies Allergy/AdvReac Type Severity Reaction Status Date / Time No Known Allergies Allergy Verified 05/08/25 08:57 Vital Signs Vital Signs - 24 hr 06/29/25 10:02 06/29/25 11:07 06/29/25 13:36 Temperature 98.1 F Pulse Rate 55 L 81 77 Respiratory Rate 19 16 16 Blood Pressure 111/83 107/60 115/90 Pulse Oximetry 100 100 100 Exam Narrative: General: well appearing, appears stated age. HEENT: normocephalic, atraumatic. Mucous membranes moist. EOMI, PERRLA, bilateral sclera anicteric, no conjunctival injection. Neck supple without JVD, lymphadenopathy, or bruit. Respiratory: clear to ascultation bilaterally. No rales/rhonic/wheezes. Cardiovascular: Regular rate and rhythm, normal S1-S2 upon ascultation. No murmurs, rubs, or clicks. PMI is nondisplaced, capillary refill less than 3 second. Abdomen: Rebound tenderness, Soft, round, no pulsatile masses, nondistended no guarding. No CVA tenderness, no hepatosplenomegaly. Bowel sounds present to all four quadrants. No high pitch or tinkling sounds, resonant to percussion. Extremities: No cyanosis, clubbing, or edema present. Pulses are palpable 2/2. Active ROM to all four extremities. Neuro: Alert and orientated x 4. PERRLA. Cranial nerves 2-12 intact without focal deficit. Skin: Warm, dry, and intact, dry macular rash without erythema on posterior chest Psych: pleasant, cooperative, normal speech, normal affect, no hallucinations, no dysarthia H&P: Results Labs Labs: Short CBC 06/29/25 Range/Units 10:11 WBC 12.7 H (4.5-10.0) K/mm3 Hgb 11.4 L (12.0-15.0) g/dL Hct 33.5 L (37.0-47.0) % Plt Count 246 (150-375) k/mm3 BMP 06/29/25 10:11 Sodium 136 L Potassium 3.4 Chloride 101 Carbon Dioxide 24 BUN 8 Creatinine 0.61 L Glucose 111 H Calcium 9.9 Liver Function 06/29/25 Range/Units 10:11 Total Bilirubin 1.5 H (0.2-1.3) mg/dL AST 32 (14-36) U/L ALT 16 (6-35) U/L Alkaline Phosphatase 61 (38-126) U/L Albumin 4.6 (3.5-5.1) g/dL Urine 06/29/25 Range/Units 10:20 Urine Color Dark yellow (Yellow) Urine Appearance Cloudy H (Clear) Urine pH 6.0 (5.0-9.0) Ur Specific Gap 1.034 (1.001-1.035) Urine Protein 2+ H (Negative) mg/dL Urine Glucose (UA) Negative (Negative) mg/dL Assessment and Plan Assessment and plan (1) Pancreatitis: Qualifiers: Acute pancreatitis complication: no infection or necrosis Chronicity: acute Pancreatitis type: unspecified pancreatitis type Qualified Code(s): K85. 90 - Acute pancreatitis without necrosis or infection, unspecified Code(s): K85.90 - Acute pancreatitis without necrosis or infection, unspecified Status: Acute Assessment and Plan: CT shows normal pancreas, lipase 1067 GI consulted for acute on chronic GI issues LR 200 Repeat lipase in the morning Pain management with morphine and Toradol Okay for clear liquids (2) Upper abdominal pain: Code(s): R10.10 - Upper abdominal pain, unspecified Status: Acute Assessment and Plan: Patient has upper abdominal pain in epigastric area right upper quadrant and mild rebound tenderness on exam (3) Nausea & vomiting: Code(s): R11.2 - Nausea with vomiting, unspecified Status: Inactive Assessment and Plan: IV fluids Zofran (4) Anemia: Qualifiers: Anemia type: unspecified type Qualified Code(s): D64.9 - Anemia, unspecified Code(s): D64.9 - Anemia, unspecified Status: Inactive Assessment and Plan: Anemia workup pending Patient states that she was recently started on vitamin-D (5) H pylori ulcer: Code(s): K27.9 - Peptic ulcer, site unspecified, unspecified as acute or chronic, without hemorrhage or perforation; B96.81 - Helicobacter pylori [H. pylori] as the cause of diseases classified elsewhere Status: Acute Assessment and Plan: Patient is unsure if she was on treatment for this Defer to GI (6) Rash: Code(s): R21 - Rash and other nonspecific skin eruption Status: Acute Assessment and Plan: Dry macular rash without erythema patient states that she has had it for least a month No signs of acute issues recommendations follow-up with PCP (7) Simple adnexal cyst less than 5 cm in diameter in premenopausal patient: Code(s): N94.89 - Other specified conditions associated with female genital organs and menstrual cycle; N95.8 - Other specified menopausal and perimenopausal disorders Status: Acute Assessment and Plan: Patient states that she was where the Recommend following up outpatient with Ob Quality VTE Prophylaxis VTE prophylaxis: mechanical ordered Hospitalist MIPS Advance Care Plan I have confirmed that the patient's Advanced Care Plan is present, code status is documented, or surrogate decision maker is listed in patient medical record.: Yes Medication Reconciliation I have utilized all available resources to obtain, update and review the patients current medications (includes all prescriptions, OTC, herbals, cannabis, and nutritional supplements).: Yes
[2025-06-29 14:49] VITALS: BMI 19.9
[2025-06-29] MEDS: LACTATED RINGERS 1,000 ML 200 ML IV CONT ×2 (14:55→21:02)
--- NOTE | 2025-06-29 15:09 | ADMGEN ---
This patient, Chang Barroso, was admitted to [facility] Room 305-02. Patient/family oriented to hospital policies and general routines including ID bracelet, bed and alarms, visiting hours, pain management, procedures, bathroom and other care routines, personal items, smoking policy, room service/diet, and visiting hours. Information on how to activate the Rapid Response Team has been discussed. Patient/Family are encouraged to report perceived risks to care and to ask questions if they do not understand what they are told or what they should do.
[2025-06-29 15:23] VITALS: BP 108/71; PULSE 83; RESP 18; TEMP 37; O2SAT 100
[2025-06-29] MEDS: KETOROLAC 15 MG/ML VIAL (*BKC) IV PUSH ×2 (16:29→22:48)
[2025-06-29] MEDS: DOCUSATE SODIUM 100 MG CAPSULE PO (16:29)
[2025-06-29 21:41] VITALS: BP 112/84; PULSE 83; RESP 18; TEMP 36.8; O2SAT 98
[2025-06-30] MEDS: LACTATED RINGERS 1,000 ML 200 ML IV CONT ×2 (02:47→08:12)
[2025-06-30] MEDS: ONDANSETRON INJ 4 MG/2 ML VIAL IV PUSH (02:50)
[2025-06-30 04:35] VITALS: BP 94/60; PULSE 72; RESP 14; TEMP 36.7; O2SAT 100
[2025-06-30] MEDS: KETOROLAC 15 MG/ML VIAL (*BKC) IV PUSH ×2 (04:37→10:06)
[2025-06-30 06:36] LABS: Hematocrit 28.5 % (37.0-47.0); Hemoglobin 9.6 g/dL (12.0-15.0); Immature Granulocyte Percent A 0.4 % (0-0.5); Lymphocytes Absolute Auto 2.96 K/mm3 (0.9-3.2); Mean Corpuscular HGB Conc 33.7 g/dl (32-36); Mean Corpuscular Hemoglobin 23.8 pg (26-34); Mean Corpuscular Volume 70.5 fl (80-100); Nucleated Red Blood Cells Absolute Auto 0.000 K/mm3 (0.0-0.012); Nucleated Red Blood Cells Perc 0.0 % (0.0-0.2); Platelet Count Result 201 k/mm3 (150-375); Red Blood Count 4.04 M/mm3 (4.2-5.4); White Blood Count 8.2 K/mm3 (4.5-10.0)
[2025-06-30 06:54] LABS: Alanine Aminotransferase 12 U/L (6-35); Albumin Level 3.3 g/dL (3.5-5.1); Alkaline Phosphatase 46 U/L (38-126); Anion Gap 5 mmol/L (4-12); Aspartate Amino Transferase 19 U/L (14-36); Bilirubin,Total 1.8 mg/dL (0.2-1.3); Blood Urea Nitrogen 8 mg/dL (7-17); Calcium 8.7 mg/dL (8.4-10.2); Carbon Dioxide 27 mmol/L (22-30); Chloride 105 mmol/L (98-107); Estimated CRCL calculation 90 ml/min; Estimated Glomerular Filt Rate > 60; Glucose 83 mg/dL (65-110); Lipase 49 U/L (23-300); Potassium 2.9 mmol/L (3.4-5.0); Sodium 137 mmol/L (137-145); Total Protein 5.7 g/dL (6.3-8.2)
[2025-06-30 06:56] LABS: Iron 109 ug/dL (37-170)
[2025-06-30 06:57] LABS: Anisocytosis 1+; Hypochromasia 1+; Schistocytes None Seen; Target Cells 1+
[2025-06-30 07:05] LABS: Percent Iron Saturation 44 % (20-50)
[2025-06-30 08:11] LABS: Ferritin 42.20 ng/mL (6.24-137); Thyroid Stimulating Hormone Reflex 2.300 uIU/mL (0.465-4.68)
[2025-06-30] MEDS: POTASSIUM CHLORIDE INJ 40 MEQ in SODIUM CHLORIDE 0.9% IV 500 ML 130 MEQ IVPB (08:11)
[2025-06-30] MEDS: PANTOPRAZOLE 40 MG TABLET PO (08:12)
[2025-06-30] MEDS: DOCUSATE SODIUM 100 MG CAPSULE PO (08:12)
[2025-06-30] MEDS: FAMOTIDINE 20 MG/2 ML VIAL IV PUSH (08:12)
[2025-06-30 08:40] LABS: Vitamin B12 223.0 pg/mL (239-931)
--- NOTE | 2025-06-30 10:34 | P.DS_ITS ---
DS: Admitting Diagnosis Discharge Date 06/30/25 - AMA Admitting Diagnosis Pancreatitis, Abdominal pain, N/V DS: Discharge Diagnosis Discharge Diagnosis (1) Pancreatitis: Qualifiers: Acute pancreatitis complication: no infection or necrosis Chronicity: acute Pancreatitis type: unspecified pancreatitis type Qualified Code(s): K85.90 - Acute pancreatitis without necrosis or infection, unspecified Code(s): K85.90 - Acute pancreatitis without necrosis or infection, unspecified Status: Acute Assessment and Plan: CT shows normal pancreas, lipase 1067 GI consulted for acute on chronic GI issues LR 200 Repeat lipase in the morning Pain management with morphine and Toradol Okay for clear liquids 06/30/25: * Interval improvement in Lipase to 49. * Awaiting GI consult * Pt chose to leave [place]. See Summary. (2) Upper abdominal pain: Code(s): R10.10 - Upper abdominal pain, unspecified Status: Acute Assessment and Plan: Patient has upper abdominal pain in epigastric area right upper quadrant and mild rebound tenderness on exam 06/30/25: * Pt left AMA (3) Hypokalemia: Code(s): E87.6 - Hypokalemia Status: Acute Assessment and Plan: 06/30/25: * Potassium today is 2.9. Pt currently NPO so 40 mEq K+rider is ordered for replenishment * Trend labs. (4) Nausea & vomiting: Code(s): R11.2 - Nausea with vomiting, unspecified Status: Inactive Assessment and Plan: IV fluids Zofran 06/30/25: * Pt chose to leave AMA (5) Anemia: Qualifiers: Anemia type: unspecified type Qualified Code(s): D64.9 - Anemia, unspecified Code(s): D64.9 - Anemia, unspecified Status: Inactive Assessment and Plan: Anemia workup pending Patient states that she was recently started on vitamin-D 06/30/25: * Stable, pt left AMA (6) H pylori ulcer: Code(s): K27.9 - Peptic ulcer, site unspecified, unspecified as acute or chronic, without hemorrhage or perforation; B96.81 - Helicobacter pylori [H. pylori] as the cause of diseases classified elsewhere Status: Acute Assessment and Plan: Patient is unsure if she was on treatment for this Defer to GI 06/30/25: * Pt left AMA prior to GI consult. (7) Rash: Code(s): R21 - Rash and other nonspecific skin eruption Status: Acute Assessment and Plan: Dry macular rash without erythema patient states that she has had it for least a month No signs of acute issues recommendations follow-up with PCP 06/30/25: * Pt left AMA (8) Simple adnexal cyst less than 5 cm in diameter in premenopausal patient: Code(s): N94.89 - Other specified conditions associated with female genital organs and menstrual cycle; N95.8 - Other specified menopausal and perimenopausal disorders Status: Acute Assessment and Plan: Patient states that she was where the Recommend following up outpatient with Ob 06/30/25: * Pt left AMA DS: Summary Hospital Course Reason for hospitalization: Pancreatitis, abdominal pain and N/V Hospital Course: This 29-year-old female patient with past medical history of H pylori who is status post cholecystectomy, presented to the ER last evening and was subsequently admitted to the hospital with Acute on chronic pancreatitis with associated N/V/D and epigastric pain for the past two days. Since January 2024 with removal of her Gallbladder she has had intermittent pain and N/V/D. Since then she has had colonoscopy and EGD that are unremarkable. She was told that she may have H.pylori but denies ever having had abx for it. She is a very poor historian. Her ER workup showed Leukocytosis at 12.7, preserved H&H, and Lipase of 1067. She was admitted to the hospital for IVF hydration and pain control of her Pancreatitis with consult placed for GI consult. This AM her labs were improved with Lipase of 49, but her Potassium was noted to be 2.9. A K+ rider was ordered and my exam as noted, and the pt was advised that we were waiting on GI consult and recs for potential further testing, etc. 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 I was called to the bedside where I explained to her the necessity of staying and receiving IV Potassium and awaiting the GI Consult, and that the benefits are resolution of abdominal pain and overall improvement of her GI function and symptoms, and the potential consequences of leaving include Cardiac compromise/weakness/ from loss of potassium and further GI progression and suffering with pain not to mention risk of irreversible damage to the pancreas and GI system that may lead to further pain, suffering and even . As a compromise since her Lipase this AM is normal now, I offered to reconsider discharge later today if she would at least accept the potassium and allow me to recheck it this afternoon which she would not accept and she was offered to allow her kids to come and sit in the room with her which she refuses. Having been told the risks vs. benefits, the pt is agreeable to signing the AMA paper and left at this time prior to her Potassium being completed and replenished and prior to receiving GI consult. VSS Status at Discharge Cognitive/behavioral status at discharge: At baseline Functional status at discharge: independent ambulation Overall status at discharge: patient is back to baseline Time Spent with Patient Time attestation: Total time spent providing and/or coordinating discharge services: Time spent: Greater than 30 minutes Specific discharge activities: Risks vs. benefits of leaving AMA. Exam Narrative: General: well appearing, appears stated age. HEENT: Atraumatic/Normocephalic, MMM Respiratory: CTAB Cardiovascular: RRR, S1 and S2 present without S3, S4,m,r,g,h Abdomen: Soft, RUQ TTP, BS+x4 Extremities: No cyanosis, clubbing, or edema present. Pulses are palpable 2/2. Active ROM to all four extremities. Neuro: A&Ox4. PERRLA. CN 2-12 intact without any focal deficit. Skin: Warm, dry, and intact, without rash, erythema, or lesion. Psych: Pleasant, Normal affect and cooperative. DS: Data Data Completed and Pending Completed studies during hospitalization: ITS Impressions Abdomen/Pelvis CT 06/29/25 12:37 IMPRESSION: 1. 3.5 similar right adnexal cyst. No acute intra-abdominal/pelvic process. Labs on day of discharge: Labs from last 24 hours 06/30/25 06/29/25 06/29/25 05:38 10:49 10:20 WBC 8.2 RBC 4.04 L Hgb 9.6 L Hct 28.5 L MCV 70.5 L MCH 23.8 L MCHC 33.7 RDW 12.8 Plt Count 201 MPV 10.4 Immature Gran % (Auto) 0.4 Neut % (Auto) 54.2 Lymph % (Auto) 36.1 [place] % (Auto) 8.2 Eos % (Auto) 0.9 Baso % (Auto) 0.2 Lymph # (Auto) 2.96 [place] # (Auto) 0.7 H Eos # (Auto) 0.1 Baso # (Auto) 0.0 Abs Immat Gran (auto) 0.03 Absolute Neuts (auto) 4.5 Absolute Nucleated RBC 0.000 Band Neutrophils % Not Reportable Nucleated RBC % 0.0 Platelet Estimate Adequate Hypochromasia 1+ Anisocytosis 1+ Microcytosis Target Cells 1+ Schistocytes None seen Sodium 137 Potassium 2.9 L Chloride 105 Carbon Dioxide 27 Anion Gap 5 BUN 8 Creatinine 0.67 L Estim Creat Clear Calc 90 Estimated GFR > 60 Glucose 83 Calcium 8.7 Iron 109 TIBC 250 L % Saturation 44 Ferritin 42.20 Total Bilirubin 1.8 H AST 19 ALT 12 Alkaline Phosphatase 46 Total Protein 5.7 L Albumin 3.3 L Lipase 49 Vitamin B12 223.0 L Folate 4.8 TSH (Reflex) 2.300 Urine Color Dark yellow Urine Appearance Cloudy H Urine pH 6.0 Ur Specific [place] 1.034 Urine Protein 2+ H Urine Glucose (UA) Negative Urine Ketones 3+ H Ur Blood (Man) Negative Urine Nitrate Negative Urine Bilirubin Negative Urine Urobilinogen 1.0 Leukocyte Esterase Rfl Negative Urine RBC 3-5 H Urine WBC 0-5 Ur Squamous Epith Cells Moderate Urine Bacteria Rare Urine Casts 3-5 POC Urine HCG, Qual Negative 06/29/25 10:11 WBC 12.7 H RBC 4.85 Hgb 11.4 L Hct 33.5 L MCV 69.1 L MCH 23.5 L MCHC 34.0 RDW 13.2 Plt Count 246 MPV 9.7 Immature Gran % (Auto) 0.5 Neut % (Auto) 80.0 H Lymph % (Auto) 12.4 L [place] % (Auto) 6.9 Eos % (Auto) 0.0 Baso % (Auto) 0.2 Lymph # (Auto) 1.57 [place] # (Auto) 0.9 H Eos # (Auto) 0.0 Baso # (Auto) 0.0 Abs Immat Gran (auto) 0.06 H Absolute Neuts (auto) 10.2 H Absolute Nucleated RBC 0.000 Band Neutrophils % Not Reportable Nucleated RBC % 0.0 Platelet Estimate Adequate Hypochromasia Anisocytosis Microcytosis 1+ Target Cells 1+ Schistocytes None seen Sodium 136 L Potassium 3.4 Chloride 101 Carbon Dioxide 24 Anion Gap 11 BUN 8 Creatinine 0.61 L Estim Creat Clear Calc 115 Estimated GFR > 60 Glucose 111 H Calcium 9.9 Iron TIBC % Saturation Ferritin Total Bilirubin 1.5 H AST 32 ALT 16 Alkaline Phosphatase 61 Total Protein 7.8 Albumin 4.6 Lipase 1067 H Vitamin B12 Folate TSH (Reflex) Urine Color Urine Appearance Urine pH Ur Specific [place] Urine Protein Urine Glucose (UA) Urine Ketones Ur Blood (Man) Urine Nitrate Urine Bilirubin Urine Urobilinogen Leukocyte Esterase Rfl Urine RBC Urine WBC Ur Squamous Epith Cells Urine Bacteria Urine Casts POC Urine HCG, Qual Discharge Plan Discharge Attending physician on discharge: Sundeep Thornton Consulting providers: Joshua Flor; Lise Horton; Román Keller Discharging Clinician: Lsie Horton Anticipated Discharge Date/Time: 06/30/25 10:51 Patient Disposition: Left Against Medical Advice Patient Language: Dutch Discharge Medications: No Action pantoprazole 40 mg tablet,delayed release (DR/EC) 40 mg PO BID Qty: 28 0RF ondansetron 4 mg tablet,disintegrating 4 mg PO Q6H PRN (Reason: nausea and vomiting) Qty: 10 0RF ergocalciferol (vitamin D2) 1,250 mcg (50,000 unit) capsule 1,250 mcg PO WEEKLY Patient Comments: takes on Date of admission: 06/29/25 13:17 Primary Care Provider: PHYSICIAN NOT ON STAFF,NONSTAFF Admitting Provider: Sundeep Thornton Attending physician on admission: Sundeep Thornton Condition: Stable
--- NOTE | 2025-06-30 10:45 | PC.NURSE ---
Patient notified of risks of leaving AMA. CURRICULUM AND INSTRUCTION DIRECTOR Mita notified. Follow up instructions given to patient. Patient signed AMA form. pt was reeducated on low potassium and was told to return to ED if symptoms come back
== END 2025-06-30 10:40 | disposition left against medical advice (07) ==
LOC: ANHED 13:16 → ANH3MEDSUR 13:47
PROVIDERS: Nurse Practitioner Gerontology; Admitting Provider General Practice; Emergency Provider Family Medicine; Visit Provider General Practice
DX: K85.90 Acute pancreatitis without necrosis or infection, unspecified (principal); D64.9 Anemia, unspecified; R21 Rash and other nonspecific skin eruption; K27.9 Peptic ulcer, site unspecified, unspecified as acute or chronic, without hemorrhage or perforation; B96.81 Helicobacter pylori [H. pylori] as the cause of diseases classified elsewhere; E87.6 Hypokalemia; N94.89 Other specified conditions associated with female genital organs and menstrual cycle; N95.8 Other specified menopausal and perimenopausal disorders; Z53.29 Procedure and treatment not carried out because of patient's decision for other reasons
CPT/HCPCS: 36415; 74177; 80053; 81001; 81025; 82607; 82728; 82746; 83540; 83550; 83690; 84443; 85025; 96361; 96374; 96375; 96376; 99285; A9270; G0378; G0379; J1885; J2270; J2405; J3480; J7030; J7040; J7120; Q9967

== ENCOUNTER 2025-08-31 18:09 | Emergency (ER) | payer OTHER, SELFPAY ==
--- NOTE | ~2025-08-31 | CT_ITS ---
CT abdomen pelvis w con Clinical History: upper abd pain, hx of pancreatitis . Comparison: 06/29/2025 Technique: Axial images lung bases to symphysis pubis 100 mL Omnipaque 350 Coronal, sagittal reformats CT images acquired with automatic exposure control for dose reduction DLP: 183 mGy-cm Findings: Lung bases: Clear. Visualized heart and pericardium: Unremarkable. Liver: Enlarged. Mild steatosis. Gallbladder: Removed. Spleen: Unremarkable. Pancreas: Unremarkable. Adrenal glands: Unremarkable. Kidneys: Right kidney- No hydronephrosis. No renal stones. Left kidney- No hydronephrosis. No renal stones. Distal esophagus/stomach: Unremarkable. Small bowel loops: Normal caliber and wall thickness. Colon: A few diverticula. Apparent foci of wall thickening likely merely underdistention. Normal RLQ appendix. Nodes: No enlarged nodes. Peritoneum: No ascites. No free air. Urinary bladder: Unremarkable. Uterus: Retroflexed. Prominent cross-filling parametrial veins. Adnexa: No masses. Enlarged gonadal veins. Bones: No acute bony abnormality. Soft tissues: Unremarkable. Aorta: No aneurysm or dissection. IVC: Unremarkable. Main portal vein/SMV/splenic vein: Patent. IMPRESSION: 1. No acute findings. Reviewed, dictated and finalized at location R. IMPRESSION: 1. No acute findings.
[2025-08-31 18:12] VITALS: BP 97/49; PULSE 130; RESP 20; TEMP 36.9; O2SAT 98
[2025-08-31 19:49] VITALS: BP 101/78; PULSE 81; RESP 17; TEMP 36.4; O2SAT 97
[2025-08-31 19:52] VITALS: BP 105/78; PULSE 76; RESP 14; TEMP 36.4; O2SAT 100
--- NOTE | 2025-08-31 19:57 | ED_ITS ---
HPI - Nausea/Vomiting/Diarrhea General Chief complaint: Nausea/Vomiting/Diarrhea <Darren Barreto MD - Last Filed: 09/01/25 09:58> Stated complaint: abd. pain, NV <Darren Barreto MD - Last Filed: 09/01/25 09:58> Time Seen by Provider: 08/31/25 19:39 <Darren Barreto MD - Last Filed: 09/01/25 09:58> Source: patient <Darren Barreto MD - Last Filed: 09/01/25 09:58> Mode of arrival: EMS <Darren Barreto MD - Last Filed: 09/01/25 09:58> Limitations: no limitations <Darren Barreto MD - Last Filed: 09/01/25 09:58> History of Present Illness HPI Narrative: This is a 29-year-old female with history of pancreatitis who presents the ED for abdominal pain. Patient states that today she ate a snickers and shortly after doing this, she began to have epigastric abdominal pain with significant nausea vomiting. She has had multiple episodes of vomiting today. This feels similar to prior episodes of pancreatitis. Denies fevers, chills, chest pain, shortness of breath. She has had a prior cholecystectomy. Last normal menstrual period was couple months ago but she is on Depo. <Darren Barreto MD - Last Filed: 09/01/25 09:58> Related Data Home medications: Home Medications ?Medication ?Instructions ?Recorded ?Confirmed ?Last Taken ?Type ergocalciferol (vitamin D2) 1,250 1,250 mcg PO WEEKLY 06/29/25 06/29/25 06/27/25 History mcg (50,000 unit) capsule <Darren Barreto MD - Last Filed: 09/01/25 09:58> Allergies/Adverse reactions: Allergies Allergy/AdvReac Type Severity Reaction Status Date / Time No Known Allergies Allergy Verified 08/31/25 18:15 <Darren Barreto MD - Last Filed: 09/01/25 09:58> Review of Systems 2 Review of Systems: Gen.: Denies fevers or chills Eyes: Denies eye pain or visual change ENT: Denies congestion Respiratory: Denies shortness of breath or cough CV: Denies chest pain or palpitations GI: As per HPI denies burning, urgency, frequency or hematuria Musculoskeletal: Denies back pain or muscle pain Neuro: Denies numbness, tingling, weakness or focal weakness Skin: Denies rash Except as documented, all other systems reviewed and negative <Darren Barreto MD - Last Filed: 09/01/25 09:58> [facility] Past Medical History Medical History: Medical History Hypokalemia Hypokalemia H pylori ulcer <Darren Barreto MD - Last Filed: 09/01/25 09:58> Surgical History Surgical History: Surgical History Hx of cholecystectomy <Darren Barreto MD - Last Filed: 09/01/25 09:58> Social History Social History: Social History Smoking status: Never smoker Alcohol intake: never Substance use: current Substance use type: marijuana Last use: 06/26/25 Lack of Transportation: YES Lack of Food: Never True Current Housing: I Have Housing Concerned About Future Housing: No Difficulty Paying Gas/Electric Bills: No Difficulty Paying for Meds: No Currently Unemployed: YES Education: High School Diploma/GED Difficulty w/ Childcare or Family Care: No Spiritual care concerns: No <Darren Barreto MD - Last Filed: 09/01/25 09:58> Exam 2 Narrative: APPEARANCE: Rolling around in bed in a position, resting in bed EYES: EOMI HEENT: Normocephalic, atraumatic, OMM RESPIRATORY: No respiratory distress Clear to auscultation bilaterally with no rhonchi wheezing or rales. CARDIOVASCULAR: Regular rate and rhythm without murmurs rubs or gallops. ABDOMINAL: Soft, diffuse tenderness to palpation, nondistended, no rebound or guarding MUSCULOSKELETAl: Moves all extremities. No clubbing, cyanosis or edema. NEURO: Awake and alert. Following commands, speech normal, no focal deficits SKIN:: Warm, dry. No rashes lesions or abrasions PSYCHIATRIC: Normal affect/mood, <Darren Barreto MD - Last Filed: 09/01/25 09:58> Course Reevaluation(s) Reevaluation #1: Assumed care of this patient at shift change with pending CT and disposition. Patient comfortably resting pain is much resolved informed her about the lab work, CT findings. <Gerhard Long MD - Last Filed: 09/01/25 01:33> Vital Signs Vital signs: Vital Signs Temperature 98.4 F 08/31/25 18:12 Pulse Rate 130 H 08/31/25 18:12 Respiratory Rate 20 08/31/25 18:12 Blood Pressure 97/49 L 08/31/25 18:12 Pulse Oximetry 98 08/31/25 18:12 Oxygen Delivery Room Air 08/31/25 18:12 Temperature 97.6 F 08/31/25 19:52 Pulse Rate 68 08/31/25 22:40 Respiratory Rate 15 08/31/25 22:40 Blood Pressure 117/73 08/31/25 22:40 Pulse Oximetry 100 08/31/25 22:40 Oxygen Delivery Room Air 08/31/25 19:49 <Darren Barreto MD - Last Filed: 09/01/25 09:58> Vital Signs Temperature 98.4 F 08/31/25 18:12 Pulse Rate 130 H 08/31/25 18:12 Respiratory Rate 20 08/31/25 18:12 Blood Pressure 97/49 L 08/31/25 18:12 Pulse Oximetry 98 08/31/25 18:12 Oxygen Delivery Room Air 08/31/25 18:12 Temperature 97.6 F 08/31/25 19:52 Pulse Rate 68 08/31/25 22:40 Respiratory Rate 15 08/31/25 22:40 Blood Pressure 117/73 08/31/25 22:40 Pulse Oximetry 100 08/31/25 22:40 Oxygen Delivery Room Air 08/31/25 19:49 <Gerhard Long MD - Last Filed: 09/01/25 01:33> MDM - Nausea/Vomiting/Diarrhea MDM Narrative Medical decision making narrative: 29-year-old female presenting for abdominal pain, nausea vomiting. On initial evaluation, patient was rolling in bed in position bracing abdomen. She had diffuse tenderness to palpation. The patient was initially given Zofran and 1 L NS bolus. She continued to have significant vomiting, there was suspicion for cannabinoid hyperemesis so she was given dronabinol with improvement of symptoms. Patient remains pending CT abdomen/pelvis. Signed out to Dr. Hennessy due to shift change <Darren Barreto MD - Last Filed: 09/01/25 09:58> Differential Diagnosis Differential diagnosis: Likely other (Gastroenteritis, pancreatitis gastritis, food poisoning, cyclic vomiting syndrome, cannabinoid hyperemesis syndrome) <Darren Barreto MD - Last Filed: 09/01/25 09:58> Likely gastroenteritis <Gerhard Long MD - Last Filed: 09/01/25 01:33> Lab Data Attestation: I reviewed the patient's lab results. <Gerhard Long MD - Last Filed: 09/01/25 01:33> Result diagrams: 08/31/25 20:08 08/31/25 20:08 <Darren Barreto MD - Last Filed: 09/01/25 09:58> Labs: Lab Results 08/31/25 08/31/25 08/31/25 Range/Units 20:08 21:09 21:10 WBC 12.0 H (4.5-10.0) K/mm3 RBC 4.83 (4.2-5.4) M/mm3 Hgb 11.7 L (12.0-15.0) g/dL Hct 34.5 L (37.0-47.0) % MCV 71.4 L (80-100) fl MCH 24.2 L (26-34) pg MCHC 33.9 (32-36) g/dl RDW 14.4 (11.5-14.5) % Plt Count 234 (150-375) k/mm3 MPV 10.1 (7.4-10.4) fl Immature Gran % (Auto) 0.4 (0-0.5) % Neut % (Auto) 76.1 H (45.5-73.1) % Lymph % (Auto) 16.9 L (18.3-44.2) % [place] % (Auto) 5.2 (2.6-8.5) % Eos % (Auto) 1.1 (0-4.4) % Baso % (Auto) 0.3 (0.2-1.2) % Lymph # (Auto) 2.03 (0.9-3.2) K/mm3 [place] # (Auto) 0.6 (0.1-0.6) K/mm3 Eos # (Auto) 0.1 (0-0.3) K/mm3 Baso # (Auto) 0.0 (0.0-0.1) K/mm3 Abs Immat Gran (auto) 0.05 H (0.00-0.031) K/mm3 Absolute Neuts (auto) 9.1 H (1.3-6.7) K/mm3 Absolute Nucleated RBC 0.000 (0.0-0.012) K/mm3 Band Neutrophils % Not Reportable Nucleated RBC % 0.0 (0.0-0.2) % Platelet Estimate Adequate (Adequate) Hypochromasia 1+ Anisocytosis 1+ Microcytosis 1+ (NORMAL) Target Cells 1+ Schistocytes None seen Sodium 138 (137-145) mmol/L Potassium 3.6 (3.4-5.0) mmol/L Chloride 106 (98-107) mmol/L Carbon Dioxide 25 (22-30) mmol/L Anion Gap 7 (4-12) mmol/L BUN 13 D (7-17) mg/dL Creatinine 0.73 (0.7-1.0) mg/dL Estim Creat Clear Calc 88 ml/min Estimated GFR > 60 (59 - ) Glucose 133 H (65-110) mg/dL Calcium 9.6 (8.4-10.2) mg/dL Total Bilirubin 1.2 (0.2-1.3) mg/dL AST 31 (14-36) U/L ALT 39 H (6-35) U/L Alkaline Phosphatase 80 (38-126) U/L Total Protein 7.9 (6.3-8.2) g/dL Albumin 4.5 (3.5-5.1) g/dL Lipase 54 (23-300) U/L Urine Color Dark yellow (Yellow) Urine Appearance Cloudy H (Clear) Urine pH 7.5 (5.0-9.0) Ur Specific [place] 1.030 (1.001-1.035) Urine Protein 1+ H (Negative) mg/dL Urine Glucose (UA) Negative (Negative) mg/dL Urine Ketones 3+ H (Negative) mg/dL Ur Blood (Man) Negative (Negative) Urine Nitrate Negative (Negative) Urine Bilirubin Negative (Negative) Urine Urobilinogen 1.0 (<2.0) mg/dL Add Ur Microanalysis Reviewed Leukocyte Esterase Rfl Trace H (Negative) SERGEY/UL Urine RBC 6-10 H (0-2) /hpf Urine WBC 0-5 (0-3) /hpf Ur Squamous Epith Cells Moderate (Few) /hpf Urine Bacteria Rare /hpf Urine Casts 0-2 Urine Mucus Present /lpf Urine Test Negative Urine Opiates Screen Negative (Negative) Urine Methadone Screen Negative (Negative) Ur Barbiturates Screen Negative (Negative) Ur Phencyclidine Scrn Negative (Negative) Ur Amphetamine Screen Negative (Negative) U Benzodiazepines Scrn Negative (Negative) Urine Cocaine Screen Negative (Negative) U Cannabinoids Screen Positive A (Negative) <Darren Barreto MD - Last Filed: 09/01/25 09:58> Lab Results 08/31/25 08/31/25 08/31/25 Range/Units 20:08 21:09 21:10 WBC 12.0 H (4.5-10.0) K/mm3 RBC 4.83 (4.2-5.4) M/mm3 Hgb 11.7 L (12.0-15.0) g/dL Hct 34.5 L (37.0-47.0) % MCV 71.4 L (80-100) fl MCH 24.2 L (26-34) pg MCHC 33.9 (32-36) g/dl RDW 14.4 (11.5-14.5) % Plt Count 234 (150-375) k/mm3 MPV 10.1 (7.4-10.4) fl Immature Gran % (Auto) 0.4 (0-0.5) % Neut % (Auto) 76.1 H (45.5-73.1) % Lymph % (Auto) 16.9 L (18.3-44.2) % [place] % (Auto) 5.2 (2.6-8.5) % Eos % (Auto) 1.1 (0-4.4) % Baso % (Auto) 0.3 (0.2-1.2) % Lymph # (Auto) 2.03 (0.9-3.2) K/mm3 [place] # (Auto) 0.6 (0.1-0.6) K/mm3 Eos # (Auto) 0.1 (0-0.3) K/mm3 Baso # (Auto) 0.0 (0.0-0.1) K/mm3 Abs Immat Gran (auto) 0.05 H (0.00-0.031) K/mm3 Absolute Neuts (auto) 9.1 H (1.3-6.7) K/mm3 Absolute Nucleated RBC 0.000 (0.0-0.012) K/mm3 Band Neutrophils % Not Reportable Nucleated RBC % 0.0 (0.0-0.2) % Platelet Estimate Adequate (Adequate) Hypochromasia 1+ Anisocytosis 1+ Microcytosis 1+ (NORMAL) Target Cells 1+ Schistocytes None seen Sodium 138 (137-145) mmol/L Potassium 3.6 (3.4-5.0) mmol/L Chloride 106 (98-107) mmol/L Carbon Dioxide 25 (22-30) mmol/L Anion Gap 7 (4-12) mmol/L BUN 13 D (7-17) mg/dL Creatinine 0.73 (0.7-1.0) mg/dL Estim Creat Clear Calc 88 ml/min Estimated GFR > 60 (59 - ) Glucose 133 H (65-110) mg/dL Calcium 9.6 (8.4-10.2) mg/dL Total Bilirubin 1.2 (0.2-1.3) mg/dL AST 31 (14-36) U/L ALT 39 H (6-35) U/L Alkaline Phosphatase 80 (38-126) U/L Total Protein 7.9 (6.3-8.2) g/dL Albumin 4.5 (3.5-5.1) g/dL Lipase 54 (23-300) U/L Urine Color Dark yellow (Yellow) Urine Appearance Cloudy H (Clear) Urine pH 7.5 (5.0-9.0) Ur Specific [place] 1.030 (1.001-1.035) Urine Protein 1+ H (Negative) mg/dL Urine Glucose (UA) Negative (Negative) mg/dL Urine Ketones 3+ H (Negative) mg/dL Ur Blood (Man) Negative (Negative) Urine Nitrate Negative (Negative) Urine Bilirubin Negative (Negative) Urine Urobilinogen 1.0 (<2.0) mg/dL Add Ur Microanalysis Reviewed Leukocyte Esterase Rfl Trace H (Negative) SERGEY/UL Urine RBC 6-10 H (0-2) /hpf Urine WBC 0-5 (0-3) /hpf Ur Squamous Epith Cells Moderate (Few) /hpf Urine Bacteria Rare /hpf Urine Casts 0-2 Urine Mucus Present /lpf Urine Test Negative Urine Opiates Screen Negative (Negative) Urine Methadone Screen Negative (Negative) Ur Barbiturates Screen Negative (Negative) Ur Phencyclidine Scrn Negative (Negative) Ur Amphetamine Screen Negative (Negative) U Benzodiazepines Scrn Negative (Negative) Urine Cocaine Screen Negative (Negative) U Cannabinoids Screen Positive A (Negative) <Gerhard Long MD - Last Filed: 09/01/25 01:33> Imaging Data Radiologist's impression: Normal appendix no acute bowel findings, no hydronephrosis or nephrolithiasis bladder is unremarkable, follicles in bilateral ovaries which is physiological. Pancreas appears unremarkable <Gerhard Long MD - Last Filed: 09/01/25 01:33> Discharge Plan Discharge Clinical Impression: Upper abdominal pain <Darren Barreto MD - Last Filed: 09/01/25 09:58> Patient Disposition: Home <Darren Barreto MD - Last Filed: 09/01/25 09:58> Condition: Stable <Darren Barreto MD - Last Filed: 09/01/25 09:58> Instructions: Abdominal Pain (ED) <Darren Barreto MD - Last Filed: 09/01/25 09:58> Patient Language: Montenegrin <Darren Barreto MD - Last Filed: 09/01/25 09:58> Prescriptions: No Action pantoprazole 40 mg tablet,delayed release (DR/EC) 40 mg PO BID Qty: 28 0RF ondansetron 4 mg tablet,disintegrating 4 mg PO Q6H PRN (Reason: nausea and vomiting) Qty: 10 0RF ergocalciferol (vitamin D2) 1,250 mcg (50,000 unit) capsule 1,250 mcg PO WEEKLY Patient Comments: takes on <Darren Barreto MD - Last Filed: 09/01/25 09:58> Follow-up/Referrals: PHYSICIAN NOT ON STAFF,NONSTAFF [Non-Staff] <Darren Barreto MD - Last Filed: 09/01/25 09:58> Time of Disposition: 01:32 <Darren Barreto MD - Last Filed: 09/01/25 09:58> 01:32 <Gerhard Long MD - Last Filed: 09/01/25 01:33>
[2025-08-31 20:13] LABS: Hematocrit 34.5 % (37.0-47.0); Hemoglobin 11.7 g/dL (12.0-15.0); Immature Granulocyte Percent A 0.4 % (0-0.5); Lymphocytes Absolute Auto 2.03 K/mm3 (0.9-3.2); Mean Corpuscular HGB Conc 33.9 g/dl (32-36); Mean Corpuscular Hemoglobin 24.2 pg (26-34); Mean Corpuscular Volume 71.4 fl (80-100); Nucleated Red Blood Cells Absolute Auto 0.000 K/mm3 (0.0-0.012); Nucleated Red Blood Cells Perc 0.0 % (0.0-0.2); Platelet Count Result 234 k/mm3 (150-375); Red Blood Count 4.83 M/mm3 (4.2-5.4); White Blood Count 12.0 K/mm3 (4.5-10.0)
[2025-08-31 20:22] LABS: Alanine Aminotransferase 39 U/L (6-35); Albumin Level 4.5 g/dL (3.5-5.1); Alkaline Phosphatase 80 U/L (38-126); Anion Gap 7 mmol/L (4-12); Aspartate Amino Transferase 31 U/L (14-36); Bilirubin,Total 1.2 mg/dL (0.2-1.3); Blood Urea Nitrogen 13 mg/dL (7-17); Calcium 9.6 mg/dL (8.4-10.2); Carbon Dioxide 25 mmol/L (22-30); Chloride 106 mmol/L (98-107); Estimated CRCL calculation 88 ml/min; Estimated Glomerular Filt Rate > 60; Glucose 133 mg/dL (65-110); Lipase 54 U/L (23-300); Potassium 3.6 mmol/L (3.4-5.0); Sodium 138 mmol/L (137-145); Total Protein 7.9 g/dL (6.3-8.2)
[2025-08-31 20:36] LABS: Anisocytosis 1+; Hypochromasia 1+; Microcytosis 1+ (NORMAL); Schistocytes None Seen; Target Cells 1+
[2025-08-31] MEDS: SODIUM CHLORIDE 0.9% IV 1,000 ML 999 ML IV CONT (20:41)
[2025-08-31] MEDS: ONDANSETRON INJ 4 MG/2 ML VIAL IV PUSH (20:42)
[2025-08-31] MEDS: MORPHINE SULFATE (*CRX) 4 MG/ML INJ 2 MG IV PUSH (20:42)
[2025-08-31 21:27] LABS: Add Urine Microscopic? YES; Appearance Urine Cloudy (Clear); Glucose Urine UA Negative (Negative); Leukocyte Esterase Ur Trace LEU/UL (Negative); Need Manual Microscopic Reviewed; Nitrate Urine Negative (Negative); Non Pathogenic Casts 0-2; Specific Grav Ur 1.030 (1.001-1.035)
[2025-08-31 21:34] LABS: Cannabinoid Screen Urine Positive (Negative)
[2025-08-31 22:40] VITALS: BP 117/73; PULSE 68; RESP 15; O2SAT 100
[2025-08-31 23:28] LABS: Pregnancy On Board Control Positive
== END 2025-09-01 01:45 | disposition home or self-care (01) ==
PROVIDERS: Family Medicine; Emergency Provider Student in an Organized Health Care Education/Training Program
DX: R10.13 Epigastric pain (principal); Z90.49 Acquired absence of other specified parts of digestive tract
CPT/HCPCS: 36415; 74177; 80053; 80307; 81001; 81025; 83690; 85025; 96361; 96374; 96375; 99284; J1790; J2270; J2405; J7030; Q9967

== ENCOUNTER 2025-09-02 11:34 | Emergency (ER) | payer OTHER, SELFPAY ==
--- NOTE | ~2025-09-02 | CT_ITS ---
EXAMINATION: CT abdomen pelvis w con DATE: 09/02/2025 13:00 INDICATION: Abdomen pain with nausea and vomiting TECHNIQUE: Computed tomography (CT) of the abdomen and pelvis was performed with 100 cc Omnipaque 350 intravenous contrast. The dose-length product was 207.34 mGy-cm. Automated exposure control and iterative reconstruction technique were employed. COMPARISON: CT dated 08/31/2025 FINDINGS: Lung bases unremarkable. Heart size normal. Fatty infiltration of the liver. Status post cholecystectomy. The spleen, pancreas, adrenal glands and kidneys are unremarkable. Nonobstructive bowel gas pattern. Small mineral free fluid in the pelvis, nonspecific. No free air or abscess. No abnormal pelvic masses or fluid collections. There are prominent periuterine veins and bilateral ovarian veins. Uterus and adnexa are otherwise unremarkable. There is an umbilical. Syncope. No acute osseous abnormality. IMPRESSION: 1. Prominent periuterine veins and bilateral ovarian veins, which may be seen with pelvic congestion syndrome in the appropriate clinical context. Reviewed, dictated and finalized at location O. IMPRESSION: 1. Prominent periuterine veins and bilateral ovarian veins, which may be seen w ith pelvic congestion syndrome in the appropriate clinical context.
[2025-09-02 11:44] VITALS: BP 128/73; PULSE 82; RESP 18; TEMP 36.6; O2SAT 100
--- NOTE | 2025-09-02 12:09 | PC.NURSE ---
Pt refuses to attempt to provide urine sample at this time
[2025-09-02 12:11] LABS: Hematocrit 34.4 % (37.0-47.0); Hemoglobin 11.6 g/dL (12.0-15.0); Immature Granulocyte Percent A 0.4 % (0-0.5); Lymphocytes Absolute Auto 2.60 K/mm3 (0.9-3.2); Mean Corpuscular HGB Conc 33.7 g/dl (32-36); Mean Corpuscular Hemoglobin 23.8 pg (26-34); Mean Corpuscular Volume 70.6 fl (80-100); Nucleated Red Blood Cells Absolute Auto 0.000 K/mm3 (0.0-0.012); Nucleated Red Blood Cells Perc 0.0 % (0.0-0.2); Platelet Count Result 229 k/mm3 (150-375); Red Blood Count 4.87 M/mm3 (4.2-5.4); White Blood Count 13.9 K/mm3 (4.5-10.0)
[2025-09-02 12:23] LABS: Alanine Aminotransferase 30 U/L (6-35); Albumin Level 4.5 g/dL (3.5-5.1); Alkaline Phosphatase 71 U/L (38-126); Anion Gap 9 mmol/L (4-12); Aspartate Amino Transferase 24 U/L (14-36); Bilirubin,Total 1.3 mg/dL (0.2-1.3); Blood Urea Nitrogen 12 mg/dL (7-17); Calcium 9.3 mg/dL (8.4-10.2); Carbon Dioxide 23 mmol/L (22-30); Chloride 106 mmol/L (98-107); Estimated CRCL calculation 96 ml/min; Estimated Glomerular Filt Rate > 60; Glucose 116 mg/dL (65-110); Lipase 71 U/L (23-300); Potassium 3.2 mmol/L (3.4-5.0); Sodium 138 mmol/L (137-145); Total Protein 7.6 g/dL (6.3-8.2)
[2025-09-02 12:37] LABS: Magnesium 2.1 mg/dL (1.6-2.3)
[2025-09-02 12:41] LABS: Hypochromasia 1+; Schistocytes None Seen; Target Cells 1+
[2025-09-02] MEDS: SODIUM CHLORIDE 0.9% IV 1,000 ML 999 ML IV CONT ×2 (12:42→13:26)
[2025-09-02 12:44] VITALS: BP 100/62; PULSE 79; RESP 18; O2SAT 100
[2025-09-02 12:46] LABS: BEDSIDEPREGUCG Negative (Negative)
[2025-09-02 12:55] LABS: Microcytosis 1+ (NORMAL)
--- NOTE | 2025-09-02 13:01 | ED_ITS ---
HPI - Abdominal Pain General Chief Complaint: Abdominal Pain Stated Complaint: n/v, abdominal pain. hx pancreatitis Time Seen by Provider: 09/02/25 11:53 Source: patient Mode of arrival: EMS Limitations: no limitations History of Present Illness HPI narrative: Patient is a 29-year-old female who presents the ED via EMS with report of abdominal pain, nausea, vomiting. Patient reports having nausea and vomiting since this morning. States she is unable to keep down any food or drink. Reports diffuse abdominal pain. Did have some diarrhea as well. Has had similar episodes in the past, reports history of colitis and pancreatitis. History of cholecystectomy. Was seen in the ED 2 days ago for similar symptoms with negative workup. Denies fevers. Patient does smoke marijuana frequently. Denies alcohol use. Related Data Home Medications ?Medication ?Instructions ?Recorded ?Confirmed ?Last Taken ?Type ergocalciferol (vitamin D2) 1,250 1,250 mcg PO WEEKLY 06/29/25 06/29/25 06/27/25 History mcg (50,000 unit) capsule Allergies Allergy/AdvReac Type Severity Reaction Status Date / Time No Known Allergies Allergy Verified 09/02/25 11:46 Review of Systems 2 Review of Systems: All systems reviewed & are unremarkable except as noted in HPI. All systems reviewed & are unremarkable except as noted in HPI and below PMFSH Past Medical History Medical History Hypokalemia Hypokalemia H pylori ulcer Surgical History Surgical History Hx of cholecystectomy Social History Social History Smoking status: Never smoker Alcohol intake: never Substance use: current Substance use type: marijuana Last use: 06/26/25 Lack of Transportation: YES Lack of Food: Never True Current Housing: I Have Housing Concerned About Future Housing: No Difficulty Paying Gas/Electric Bills: No Difficulty Paying for Meds: No Currently Unemployed: YES Education: High School Diploma/GED Difficulty w/ Childcare or Family Care: No Spiritual care concerns: No Exam 2 Narrative: GENERAL: Uncomfortable appearing, thin, rocking back and forth on ED stretcher. HEAD: Normocephalic, atraumatic. RESPIRATORY: Airway patent, respirations nonlabored. Clear to auscultation bilaterally, no rales, rhonchi, wheezing. CARDIOVASCULAR: Regular rate and rhythm without murmurs, rubs, or gallops. ABDOMINAL: Soft, diffuse nonfocal tenderness, nondistended. Normoactive BS. MUSCULOSKELETAL: Moves all extremities. No gross deformities. SKIN: Warm, dry, normal color. NEURO: A&O X3. Speech clear. Cranial nerves II-XII grossly intact. Steady gait. No ataxic movements. PSYCHIATRIC: Anxious. Normal interaction. Course Vital Signs Vital signs: Vital Signs Temperature 97.9 F 09/02/25 11:44 Pulse Rate 82 09/02/25 11:44 Respiratory Rate 18 09/02/25 11:44 Blood Pressure 128/73 09/02/25 11:44 Pulse Oximetry 100 09/02/25 11:44 Oxygen Delivery Room Air 09/02/25 11:44 Temperature 97.9 F 09/02/25 11:44 Pulse Rate 90 09/02/25 17:37 Respiratory Rate 15 09/02/25 17:37 Blood Pressure 113/81 09/02/25 17:37 Pulse Oximetry 99 09/02/25 17:37 Oxygen Delivery Room Air 09/02/25 11:44 MDM - Abdominal Pain MDM Narrative Medical decision making narrative: Patient presented to ED with diffuse abdominal pain, nausea, vomiting, history of similar episodes. Vital signs stable upon arrival. Patient is afebrile. Cbc with blood cell count of 13.9. Slightly increased from recent records. Likely in part reactive from vomiting. Potassium 3.2. Will replace. Mag within normal range. Otherwise stable electrolytes, stable kidney function. Normal LFTs and lipase. UA with small amount of blood, no significant signs of infection. Urine is negative. CT scan of abdomen/pelvis was obtained and showing findings of pelvic congestion syndrome, however uterus and adnexa are unremarkable. No other concerning findings. Patient given 2 L of fluid, Pepcid, Reglan, Benadryl, Haldol, Toradol. On re- evaluation, she is feeling improved. Imaged to tolerate p.o. intake. Sleeping on multiple re-evaluations. Discussed lab and imaging findings, high likelihood of cyclic vomiting syndrome, cannabinoid induced hyperemesis syndrome. Advised patient to discontinue marijuana use, stay well hydrated at home, get plenty of rest. She does have Zofran at home that she can continue to use barrier recommended close follow-up with PCP. Given strict return precautions. Discharged in stable condition. Medical Records Attestation: I reviewed the patient's medical records. Lab Data Attestation: I reviewed the patient's lab results. 09/02/25 12:06 09/02/25 12:06 Labs: Lab Results 09/02/25 09/02/25 09/02/25 Range/Units 12:06 12:42 12:44 WBC 13.9 H (4.5-10.0) K/mm3 RBC 4.87 (4.2-5.4) M/mm3 Hgb 11.6 L (12.0-15.0) g/dL Hct 34.4 L (37.0-47.0) % MCV 70.6 L (80-100) fl MCH 23.8 L (26-34) pg MCHC 33.7 (32-36) g/dl RDW 14.3 (11.5-14.5) % Plt Count 229 (150-375) k/mm3 MPV 10.0 (7.4-10.4) fl Immature Gran % (Auto) 0.4 (0-0.5) % Neut % (Auto) 73.8 H (45.5-73.1) % Lymph % (Auto) 18.7 (18.3-44.2) % [place] % (Auto) 6.0 (2.6-8.5) % Eos % (Auto) 0.7 (0-4.4) % Baso % (Auto) 0.4 (0.2-1.2) % Lymph # (Auto) 2.60 (0.9-3.2) K/mm3 [place] # (Auto) 0.8 H (0.1-0.6) K/mm3 Eos # (Auto) 0.1 (0-0.3) K/mm3 Baso # (Auto) 0.1 (0.0-0.1) K/mm3 Abs Immat Gran (auto) 0.05 H (0.00-0.031) K/mm3 Absolute Neuts (auto) 10.3 H (1.3-6.7) K/mm3 Absolute Nucleated RBC 0.000 (0.0-0.012) K/mm3 Band Neutrophils % Not Reportable Nucleated RBC % 0.0 (0.0-0.2) % Platelet Estimate Adequate (Adequate) Hypochromasia 1+ Microcytosis 1+ (NORMAL) Target Cells 1+ Schistocytes None seen Sodium 138 (137-145) mmol/L Potassium 3.2 L (3.4-5.0) mmol/L Chloride 106 (98-107) mmol/L Carbon Dioxide 23 (22-30) mmol/L Anion Gap 9 (4-12) mmol/L BUN 12 (7-17) mg/dL Creatinine 0.65 L (0.7-1.0) mg/dL Estim Creat Clear Calc 96 ml/min Estimated GFR > 60 (59 - ) Glucose 116 H (65-110) mg/dL Calcium 9.3 (8.4-10.2) mg/dL Magnesium 2.1 (1.6-2.3) mg/dL Total Bilirubin 1.3 (0.2-1.3) mg/dL AST 24 (14-36) U/L ALT 30 (6-35) U/L Alkaline Phosphatase 71 (38-126) U/L Total Protein 7.6 (6.3-8.2) g/dL Albumin 4.5 (3.5-5.1) g/dL Lipase 71 (23-300) U/L Urine Color Dark yellow (Yellow) Urine Appearance Turbid H (Clear) Urine pH 5.5 (5.0-9.0) Ur Specific [place] 1.037 H (1.001-1.035) Urine Protein 1+ H (Negative) mg/dL Urine Glucose (UA) Negative (Negative) mg/dL Urine Ketones 1+ H (Negative) mg/dL Ur Blood (Man) Negative (Negative) Urine Nitrate Negative (Negative) Urine Bilirubin 1+ H (Negative) Urine Urobilinogen 1.0 (<2.0) mg/dL Add Ur Microanalysis Reviewed Leukocyte Esterase Rfl Trace H (Negative) SERGEY/UL Urine RBC 21-50 H (0-2) /hpf Urine WBC 0-5 (0-3) /hpf Ur Squamous Epith Cells Many H (Few) /hpf Urine Bacteria 1+ H /hpf Urine Casts 6-10 POC Urine HCG, Qual Negative (Negative) Imaging Data Attestation: I personally reviewed and interpreted this imaging study as follows: Radiologist's impression: ITS Impressions Abdomen/Pelvis CT 09/02/25 13:02 IMPRESSION: 1. Prominent periuterine veins and bilateral ovarian veins, which may be seen with pelvic congestion syndrome in the appropriate clinical context. Discharge Plan Discharge Clinical Impression: Upper abdominal pain, Cyclical vomiting Patient Disposition: Home Condition: Stable Instructions: Antibiotic Form, Acute Nausea and Vomiting (ED), Cyclic Vomiting Syndrome (ED) Additional Instructions: Stop marijuana use as this is likely contributing to your nausea and vomiting. Continue Zofran at home as needed for nausea. You may use Tylenol, ibuprofen, Bentyl as needed for abdominal discomfort. Increase fluid intake. Recommend electrolyte rich fluids, gatorade, pedialyte, body armour. Recommend clear liquids or bland diet until symptoms improve, such as bananas, rice, applesauce, toast, or crackers. Follow up with your primary care doctor for further evaluation. Return to the ED if you experience worsening or severe symptoms, unable to keep down food or drink, severe pain, fevers, rectal bleeding, vomiting blood, or any other symptoms of concern. Patient Language: Chinese Prescriptions: New dicyclomine 20 mg tablet 20 mg PO TID PRN (Reason: Abdominal Discomfort) Qty: 15 0RF No Action pantoprazole 40 mg tablet,delayed release (DR/EC) 40 mg PO BID Qty: 28 0RF ondansetron 4 mg tablet,disintegrating 4 mg PO Q6H PRN (Reason: nausea and vomiting) Qty: 10 0RF ergocalciferol (vitamin D2) 1,250 mcg (50,000 unit) capsule 1,250 mcg PO WEEKLY Patient Comments: takes on Follow-up/Referrals: UNKNOWN,DOCTOR [Primary Care Provider] Time of Disposition: 17:20
[2025-09-02 13:24] VITALS: BP 113/74; PULSE 72; RESP 15; O2SAT 100
[2025-09-02] MEDS: METOCLOPRAMIDE HCL INJ 10 MG/2 ML VIAL IV PUSH (13:25)
[2025-09-02 13:26] LABS: Add Urine Microscopic? YES; Appearance Urine Turbid (Clear); Glucose Urine UA Negative (Negative); Leukocyte Esterase Ur Trace LEU/UL (Negative); Need Manual Microscopic Reviewed; Nitrate Urine Negative (Negative); Specific Grav Ur 1.037 (1.001-1.035)
[2025-09-02] MEDS: FAMOTIDINE 20 MG/2 ML VIAL IV PUSH (13:26)
[2025-09-02] MEDS: POTASSIUM CHLORIDE 20 MEQ ER TABLET 40 MEQ PO (14:15)
[2025-09-02] MEDS: HALOPERIDOL LACTATE 5 MG/ML VIAL IM (15:56)
[2025-09-02 15:57] VITALS: BP 131/81; PULSE 93; RESP 18; O2SAT 99
[2025-09-02] MEDS: KETOROLAC 30 MG/ML VIAL (*BKC) IV PUSH (17:06)
[2025-09-02 17:37] VITALS: BP 113/81; PULSE 90; RESP 15; O2SAT 99
== END 2025-09-02 17:39 | disposition home or self-care (01) ==
PROVIDERS: Emergency Provider Physician Assistant
DX: R10.10 Upper abdominal pain, unspecified (principal); R11.15 Cyclical vomiting syndrome unrelated to migraine
CPT/HCPCS: 36415; 74177; 80053; 81001; 81025; 83690; 83735; 85025; 96361; 96372; 96374; 96375; 99284; A9270; J1200; J1630; J1885; J2765; J7030; Q9967